=== PATIENT | male | born 1930 | race Caucasian/White ===

== ENCOUNTER 2019-06-14 15:13 | Inpatient (IN) | payer MEDICARE, OTHER ==
--- NOTE | 2019-06-14 15:28 | ER Document Report ---
ED Medical Screen (RME) - General Chief Complaint: Shortness Of Breath Stated Complaint: SHORTNESS OF BREATH Time Seen by Provider: 06/14/19 15:24 Primary Care Provider: DEX PACK MD [Primary Care Provider] - Follow up as needed Mode of Arrival: Ambulatory Information source: Patient Notes: 89-year-old male presented to ED for complaint of shortness of breath. He does have a history of CHF and is been hospitalized multiple times for this. He is also been hospitalized for pneumonia. His home health nurse spoke with patient and the family and we suggested he come to the emergency room to be evaluated due to his cough and shortness of breath. I have greeted and performed a rapid initial assessment of this patient. A comprehensive ED assessment and evaluation of the patient, analysis of test results and completion of medical decision making process will be conducted by an additional ED providers. - Related Data Allergies/Adverse Reactions: aspirin [Aspirin] Allergy (Verified 06/14/19 15:19) Penicillins Allergy (Verified 06/14/19 15:19) Past Medical History - Past Medical History Cardiac Medical History: Reports: Hx Atrial Fibrillation, Hx Congestive Heart Failure, Hx Heart Attack, Hx Hypercholesterolemia, Hx Hypertension Pulmonary Medical History: Reports: Hx COPD Endocrine Medical History: Reports: Hx Diabetes Mellitus Type 2 Past Surgical History: Reports: Hx Cardiac Catheterization, Hx Cardiac Surgery - bypass Physical Exam - Vital signs Vitals: Temp Pulse Resp BP Pulse Ox 97.5 F 65 24 H 114/55 L 98 06/14/19 15:18 06/14/19 15:18 06/14/19 15:18 06/14/19 15:18 06/14/19 15:18 Course - Vital Signs Vital signs: Temp Pulse Resp BP Pulse Ox 97.5 F 65 24 H 114/55 L 98 06/14/19 15:18 06/14/19 15:18 06/14/19 15:18 06/14/19 15:18 06/14/19 15:18 Doctor's Discharge - Discharge Referrals: DEX PACK MD [Primary Care Provider] - Follow up as needed
--- NOTE | 2019-06-14 15:56 | RADIOLOGY REPORT (SQ) ---
EXAM DESCRIPTION: CHEST 2 VIEWS COMPLETED DATE/TIME: 06/14/2019 3:45 pm REASON FOR STUDY: Short of breath cough history of CHF COMPARISON: None. EXAM PARAMETERS: NUMBER OF VIEWS: two views TECHNIQUE: Digital Frontal and Lateral radiographic views of the chest acquired. RADIATION DOSE: NA LIMITATIONS: none FINDINGS: LUNGS AND PLEURA: Mild right-sided pleural effusion with associated consolidation, possibl y atelectasis or infection. Unremarkable left hemithorax. No pneumothorax. MEDIASTINUM AND HILAR STRUCTURES: Right infrahilar opacification. HEART AND VASCULAR STRUCTURES: Enlarged cardiac silhouette. No definite pulmonary edema. BONES: Prior sternotomy. HARDWARE: Left-sided cardiac pacer with leads overlying right atrium and right ventricle. Sternotomy wires. OTHER: No other significant finding. IMPRESSION: Mild left basilar effusion with associated consolidation, possibly atelectasis or infect ion. Enlarged cardiac silhouette without overt edema. TECHNICAL DOCUMENTATION: JOB ID: [id number] 2010 [employer]- All Rights Reserved Reading location - IP/workstation name: [email or web address]
[2019-06-14 16:04] LABS: ABSOLUTE EOSINOPHILS # (AUTO) 0.1 10^3/uL (0.0-0.6); ABSOLUTE LYMPHOCYTES (AUTO) 0.6 10^3/uL (0.5-4.7); ABSOLUTE NEUT (AUTO) 3.5 10^3/uL (1.7-8.2); BASOPHILS % (AUTO) 0.8 % (0-2); EOSINOPHILS % (AUTO) 1.5 % (0-6); HEMATOCRIT 31.8 % (37.9-51.0); HEMOGLOBIN 10.6 g/dL (13.5-17.0); MEAN CORPUSCULAR HEMOGLOBIN 28.9 pg (27.0-33.4); MEAN CORPUSCULAR HGB CONC 33.3 g/dL (32.0-36.0); MEAN CORPUSCULAR VOLUME 87 fl (80-97); MONOCYTES % (AUTO) 19.8 % (3-13); PLATELET COUNT 127 10^3/uL (150-450); RED BLOOD COUNT 3.67 10^6/uL (4.35-5.55); RED CELL DISTRIBUTION WIDTH 18.6 % (11.5-14.0); SEGMENTED NEUTROPHILS % (AUTO) 66.9 % (42-78); TOTAL CELLS COUNTED % (AUTO) 100 %; WHITE BLOOD COUNT 5.2 10^3/uL (4.0-10.5)
[2019-06-14 16:28] LABS: ALBUMIN 3.7 g/dL (3.5-5.0); ALKALINE PHOSPHATASE 151 U/L (38-126); ANION GAP 11 (5-19); ASPARTATE AMINO TRANSFERASE 47 U/L (17-59); BILIRUBIN,DIRECT 0.3 mg/dL (0.0-0.4); BILIRUBIN,TOTAL 0.9 mg/dL (0.2-1.3); BLOOD UREA NITROGEN 40 mg/dL (7-20); CARBON DIOXIDE 29 mmol/L (22-30); CHLORIDE 91 mmol/L (98-107); GLUCOSE 146 mg/dL (75-110); POTASSIUM 4.5 mmol/L (3.6-5.0); TOTAL PROTEIN 7.7 g/dL (6.3-8.2)
[2019-06-14 16:50] LABS: TROPONIN I 0.09 ng/mL
[2019-06-14 16:52] LABS: AMORPHOUS SEDIMENT,URINE TRACE /HPF; APPEARANCE,URINE CLEAR; BILIRUBIN,URINE NEGATIVE (NEGATIVE); COLOR,URINE YELLOW; GLUCOSE, URINE NEGATIVE (NEGATIVE); KETONES,URINE NEGATIVE (NEGATIVE); PROTEIN,URINE NEGATIVE (NEGATIVE); URINE SPECIFIC GRAVITY 1.009; UROBILINOGEN,URINE NEGATIVE mg/dL (<2.0)
--- NOTE | 2019-06-14 18:25 | ER Document Report ---
ED General - General Chief Complaint: Shortness Of Breath Stated Complaint: SHORTNESS OF BREATH Time Seen by Provider: 06/14/19 15:24 Primary Care Provider: DEX PACK MD [Primary Care Provider] - Follow up as needed Mode of Arrival: Ambulatory Information source: Patient Notes: triage notes Pt sent over by home health nurse who states that pt's "lungs are full of fluid". Hx of CHF with 3 hospitalizations this past year. Pt has developed a cough and slight SOB over the last day. Denies fevers and other sx. Pt does have chronic marques in place. TRAVEL OUTSIDE OF THE [place] IN LAST 30 DAYS: No - HPI Onset: This evening Onset/Duration: Sudden Quality of pain: No pain Severity: Mild Associated symptoms: Nonproductive cough, Shortness of breath - Nonproductive cough Exacerbated by: Other - Urination and suprapubic pain acute over the last few hours Relieved by: Denies Similar symptoms previously: Yes Recently seen / treated by doctor: Yes - PMD was called but they advised to come immediately to the hospital - Related Data Allergies/Adverse Reactions: aspirin [Aspirin] Allergy (Verified 06/14/19 15:19) Penicillins Allergy (Verified 06/14/19 15:19) Past Medical History - General Information source: Patient - Social History Smoking Status: Never Smoker Cigarette use (# per day): No Chew tobacco use (# tins/day): No Smoking Education Provided: No Frequency of alcohol use: None Drug Abuse: None Family History: Reviewed & Not Pertinent Patient has suicidal ideation: No Patient has homicidal ideation: No - Past Medical History Cardiac Medical History: Reports: Hx Atrial Fibrillation, Hx Congestive Heart Failure, Hx Heart Attack, Hx Hypercholesterolemia, Hx Hypertension Pulmonary Medical History: Reports: Hx COPD Endocrine Medical History: Reports: Hx Diabetes Mellitus Type 2 Past Surgical History: Reports: Hx Cardiac Catheterization, Hx Cardiac Surgery - bypass Review of Systems - Review of Systems Constitutional: See HPI, Malaise, Weakness EENT: No symptoms reported Cardiovascular: See HPI Respiratory: See HPI, Cough, Short of breath Gastrointestinal: See HPI, Abdominal pain - Suprapubic pain Genitourinary: See HPI, Dysuria - Marques catheter in place Male Genitourinary: No symptoms reported Musculoskeletal: No symptoms reported Skin: No symptoms reported Hematologic/Lymphatic: No symptoms reported Neurological/Psychological: No symptoms reported Physical Exam - Vital signs Vitals: Temp Pulse Resp BP Pulse Ox 97.5 F 65 24 H 114/55 L 98 06/14/19 15:18 06/14/19 15:18 06/14/19 15:18 06/14/19 15:18 06/14/19 15:18 Interpretation: Tachypneic - General General appearance: Alert In distress: None - HEENT Head: Normocephalic Eyes: Normal Conjunctiva: Normal Cornea: Normal, Superficial foreign body Eyelashes: Normal Pupils: PERRL Mouth/Lips: Normal Mucous membranes: Normal Pharynx: Normal Neck: Normal - Respiratory Respiratory status: No respiratory distress, Tachypnea - Patient with full sentences and reports he has to have a bowel movement Chest status: Nontender Breath sounds: Decreased air movement, Nonproductive cough Chest palpation: Normal - Cardiovascular Rhythm: Regular Heart sounds: Normal auscultation Murmur: No Friction rub: No Lynette's crunch: No - Abdominal Inspection: Normal Distension: No distension Bowel sounds: Normal Tenderness: Tender - Suprapubic Organomegaly: No organomegaly - Back Back: Normal - Extremities General upper extremity: Normal inspection General lower extremity: Normal inspection - Neurological Neuro grossly intact: Yes Cognition: Normal Orientation: AAOx4 [place] Coma Scale Eye Opening: Spontaneous [place] Coma Scale Verbal: Oriented [place] Coma Scale Motor: Obeys Commands [place] Coma Scale Total: 15 Speech: Normal Cranial nerves: Normal Cerebellar coordination: Normal Motor strength normal: LUE, RUE, LLE, RLE - Psychological Associated symptoms: Normal affect - Skin Skin Temperature: Warm Skin Moisture: Dry Course - Vital Signs Vital signs: Temp Pulse Resp BP Pulse Ox 97.5 F 65 20 105/55 L 96 06/14/19 15:18 06/14/19 15:18 06/14/19 21:00 06/14/19 20:03 06/14/19 21:00 - Laboratory Result Diagrams: 06/14/19 13:45 06/14/19 13:45 Laboratory results interpreted by me: 06/14/19 06/14/19 06/14/19 13:45 13:45 13:45 RBC 3.67 L Hgb 10.6 L Hct 31.8 L RDW 18.6 H Plt Count 127 L Lymph % (Auto) 11.0 L [place] % (Auto) 19.8 H Sodium 131.2 L Chloride 91 L BUN 40 H Glucose 146 H Alkaline Phosphatase 151 H NT-Pro-B Natriuret Pep 691 H Urine Blood Urine Nitrite (Reflex) Leukocyte Esterase Rfl 06/14/19 16:25 RBC Hgb Hct RDW Plt Count Lymph % (Auto) [place] % (Auto) Sodium Chloride BUN Glucose Alkaline Phosphatase NT-Pro-B Natriuret Pep Urine Blood MODERATE H Urine Nitrite (Reflex) POSITIVE H Leukocyte Esterase Rfl LARGE H - Diagnostic Test Radiology reviewed: Reports reviewed Critical Care Note - Critical Care Note Total time excluding time spent on procedures (mins): 90 Comments: I discussed this case with IVÁN Duncan at 1835 and he advises discussing this with Dr. Buddy Izquierdo at around 1910. Dr. Izquierdo advised antibiotics. Patient's respiratory rate went up to 33 breaths/min with 109/62 blood pressure drop. I re-discussed this case with Dr. Buddy Izquierdo at 2121 and he advised telemetry bed Discharge - Discharge Clinical Impression: Pneumonia Qualifiers: Pneumonia type: due to unspecified organism Laterality: left Lung location: lower lobe of lung Qualified Code(s): J18.9 - Pneumonia, unspecified organism UTI (urinary tract infection) Qualifiers: Urinary tract infection type: catheter-associated UTI Indwelling urinary catheter type: indwelling urethral catheter Encounter type: initial encounter Qualified Code(s): T83.511A - Infection and inflammatory reaction due to indwelling urethral catheter, initial encounter Condition: Good Disposition: ADMITTED INPATIENT Admitting Provider: Timbo (Hospitalist) Unit Admitted: Telemetry Additional Instructions: Transfer patient to telemetry bed as per Dr. Izquierdo's orders Referrals: DEX PCAK MD [Primary Care Provider] - Follow up as needed
[2019-06-14] MEDS ORDERED: VANCOMYCIN HCL INJ 1000 MG VIAL IV ONE (18:27)
[2019-06-14] MEDS ORDERED: LEVOFLOXACIN 750 MG/D5W RTU 750 MG/150 ML RTUPB IV ONE (19:30)
[2019-06-14] MEDS ORDERED: IPRATROPIUM/ALBUTEROL 0.5-2.5 MG/3 ML AMPUL NEB PRN (21:21)
[2019-06-14] MEDS ORDERED: ACETAMINOPHEN 325 MG TABLET PO PRN (21:21)
--- NOTE | 2019-06-14 21:26 | RADIOLOGY REPORT (SQ) ---
EXAM DESCRIPTION: CLINICAL HISTORY: 89 years, Male, sob COMPARISON: Chest x-ray from today. TECHNIQUE: Axial images through the chest were performed after the administration of intravenous contrast using a pulmonary embolus protocol. MIPS were performed. This exam was performed according to our departmental dose-optimization program which includes use of Automated Exposure Control, adjustment of the mA and/or kV according to patient size and/or use of iterative reconstruction technique. 100 mL Omnipaque 350. FINDINGS: Mildly enlarged 32 mm main pulmonary artery. No evidence for pulmonary embolus. Mildly ectatic aortic sinus 35 mm. Ascending aorta 32 mm. No dissection. [id number] calcifications and aortic annulus. Advanced coronary calcifications. Calcification of aortic annulus. Mild cardiomegaly mainly large of right and left atria. Mild precarinal and subcarinal adenopathy. Moderate to prominent right pleural effusion. Compressive atelectasis mainly of the right lower lobe. Tiny left pleural effusion. Mild vascular congestion. Limited images of the upper abdomen demonstrate dilated IVC and hepatic veins. Possible passive congestion the liver. Multiple small gallstones. Atherosclerotic aorta and its branches. Increased colonic stool. IMPRESSION: 1. No evidence for pulmonary embolus. Mildly enlarged 32 mm main pulmonary artery. 2. Calcifications aortic and mitral annulus. Cardiomegaly mainly right and left atria. 3. Significant right pleural effusion. May be related to cardiac or to liver disease. Other causes not excluded. Associated with collapse of the right lower lobe. Minimal left pleural effusion. Nonspecific mild edema in the aerated lungs. 4. IVC and hepatic vein dilatation. Fatty liver. Possible passive congestion of the liver. 5. Atherosclerotic disease includes coronary arteries abdominal aorta and its branches. 6. Gallstones without acute biliary abnormality.
[2019-06-14] MEDS ORDERED: NORMAL SALINE 1000 ML 1,000 ML IV SCH (21:30)
[2019-06-14] MEDS: HEPARIN SOD (PORCINE) 5,000 UNIT/ML 1 ML VIAL SUBCUT SCH (22:25)
[2019-06-14 22:28] LABS: ABSOLUTE RETICS # 0.062 10^6/uL (0.028-0.122); RETICULOCYTE COUNT (AUTO) 1.69 % (0.66-2.85)
[2019-06-14 23:54] LABS: FOLATE > 20.00 ng/mL (>2.76)
[2019-06-14 23:56] LABS: IRON(TIBC) 58.1 ug/dL (49-181)
[2019-06-15] MEDS: IPRATROPIUM/ALBUTEROL 0.5-2.5 MG/3 ML AMPUL NEB SCH ×4 (00:26→23:49)
[2019-06-15] MEDS: NORMAL SALINE 1000 ML 1,000 ML IV PRN ×3 (03:32→21:50)
--- NOTE | 2019-06-15 03:37 | PDOC H&P ---
History of Present Illness Admission Date/PCP: 06/14/19 21:50 DEX PACK MD Patient complains of: Shortness of breath and cough History of Present Illness: EMMA HIGGINBOTHAM is a 89 year old male with a past medical history of congestive heart failure with an ejection fraction, paroxysmal atrial fibrillation, COPD, type 2 diabetes, status post coronary artery bypass graft and chronic indwelling [place] catheter. He presents with 7 days of rhinorrhea, nonproductive cough developing shortness of breath prompting evaluation in the emergency room. He is found to have a left-sided infiltrate with atelectasis. He receives breathing treatments, empiric antibiotics and referred to the hospitalist for admission. Patient denies recent antibiotics or hospitalization. No recent travel or exposure to known patient with coronavirus. Past Medical History Cardiac Medical History: Reports: Atrial Fibrillation, Congestive Heart Failure, Myocardial Infarction, Hyperlipidema, Hypertension Pulmonary Medical History: Reports: Chronic Obstructive Pulmonary Disease (COPD) Endocrine Medical History: Reports: Diabetes Mellitus Type 2 Psychiatric Medical History: Denies: Substance Abuse, Tobacco Dependency Past Surgical History Past Surgical History: Reports: Cardiac Catheterization Social History Information Source: Patient, Relative, [facility] Records Lives with: Family Smoking Status: Never Smoker Electronic Cigarette use?: No Frequency of Alcohol Use: None Drugs: None - Advance Directive Resuscitation Status: Full Code Family History Family History: Hypertension Parental Family History Reviewed: Yes Children Family History Reviewed: Yes Sibling(s) Family History Reviewed.: Yes Medication/Allergy Home Medications: Alfuzosin HCl [Uroxatral SR 10 mg Tablet] 10 mg PO DAILY 12/24/12 Furosemide [Lasix 40 mg Tablet] 80 mg PO DAILY 12/24/12 Metolazone [Zaroxolyn 2.5 Mg Tablet] 2.5 mg PO [id number] 12/24/12 Simvastatin [Zocor 10 mg Tablet] 10 mg PO DAILY 12/24/12 Cyanocobalamin (Vitamin B-12) [Vitamin B-12] 1,000 mcg SL DAILY 06/14/19 Folic Acid [Folvite 1 mg Tablet] 1 mg PO DAILY 06/14/19 Spironolactone [Aldactone 25 mg Tablet] 25 mg PO DAILY 06/14/19 Spironolactone [Aldactone 25 mg Tablet] 50 mg PO QHS 06/14/19 Allergies/Adverse Reactions: aspirin [Aspirin] Allergy (Verified 06/14/19 15:19) Penicillins Allergy (Verified 06/14/19 15:19) Review of Systems Constitutional: PRESENT: as per HPI, fatigue, weakness. ABSENT: chills, fever(s), headache(s), weight gain, weight loss Eyes: ABSENT: visual disturbances Ears: ABSENT: hearing changes Nose, Mouth, and Throat: PRESENT: as per HPI, other - Rhinorrhea Cardiovascular: PRESENT: as per HPI, dyspnea on exertion. ABSENT: chest pain, edema, orthropnea, palpitations Respiratory: PRESENT: as per HPI, cough, dyspnea. ABSENT: hemoptysis, sputum Gastrointestinal: ABSENT: abdominal pain, constipation, diarrhea, hematemesis, hematochezia, nausea, vomiting Genitourinary: ABSENT: dysuria, hematuria Musculoskeletal: ABSENT: joint swelling Integumentary: ABSENT: rash, wounds Neurological: ABSENT: abnormal gait, abnormal speech, confusion, dizziness, focal weakness, syncope Psychiatric: ABSENT: anxiety, depression, homidical ideation, suicidal ideation Endocrine: ABSENT: cold intolerance, heat intolerance, polydipsia, polyuria Hematologic/Lymphatic: ABSENT: easy bleeding, easy bruising Physical Exam Vital Signs: Temp Pulse Resp BP Pulse Ox 98 F 65 23 H 132/57 H 96 06/14/19 21:25 06/15/19 00:26 06/15/19 00:44 06/15/19 00:46 06/15/19 00:44 Intake & Output 06/13/19 06/14/19 06/15/19 11:59 11:59 11:59 Intake Total 150 Output Total 600 Balance -450 Weight 86.9 kg General appearance: PRESENT: cooperative, mild distress, well-developed, well- nourished. ABSENT: disheveled Head exam: PRESENT: atraumatic, normocephalic Eye exam: PRESENT: conjunctiva pink, EOMI, PERRLA. ABSENT: scleral icterus Ear exam: PRESENT: normal external ear exam Mouth exam: PRESENT: moist, tongue midline Neck exam: ABSENT: carotid bruit, JVD, lymphadenopathy, thyromegaly Respiratory exam: PRESENT: accessory muscle use, decreased breath sounds, prolonged expiratory phas, retraction, rhonchi, tachypnea Cardiovascular exam: PRESENT: RRR. ABSENT: diastolic murmur, rubs, systolic murmur Pulses: PRESENT: normal carotid pulses Vascular exam: PRESENT: normal capillary refill GI/Abdominal exam: PRESENT: normal bowel sounds, soft. ABSENT: distended, guarding, mass, organolmegaly, rebound, tenderness Rectal exam: PRESENT: deferred Extremities exam: PRESENT: full ROM. ABSENT: calf tenderness, clubbing, pedal edema Neurological exam: PRESENT: alert, awake, oriented to person, oriented to place, oriented to time, oriented to situation, CN II-XII grossly intact. ABSENT: motor sensory deficit Psychiatric exam: PRESENT: appropriate affect, normal mood. ABSENT: homicidal ideation, suicidal ideation Skin exam: PRESENT: dry, intact, warm. ABSENT: cyanosis, rash Results Laboratory Results: 06/14/19 13:45 06/14/19 13:45 06/14/19 06/14/19 06/14/19 13:45 13:45 13:45 WBC 5.2 RBC 3.67 L Hgb 10.6 L Hct 31.8 L MCV 87 MCH 28.9 MCHC 33.3 RDW 18.6 H Plt Count 127 L Seg Neutrophils % 66.9 Retic Count (auto) 1.69 Sodium 131.2 L Potassium 4.5 Chloride 91 L Carbon Dioxide 29 Anion Gap 11 BUN 40 H Creatinine 0.91 Est GFR ( Amer) > 60 Glucose 146 H Lactic Acid Calcium 9.0 Iron TIBC % Saturation Ferritin Total Bilirubin 0.9 AST 47 Alkaline Phosphatase 151 H Total Protein 7.7 Albumin 3.7 Vitamin B12 Folate Urine Color Urine Appearance Urine pH Ur Specific Kuna Urine Protein Urine Glucose (UA) Urine Ketones Urine Blood Urine RBC (Auto) 06/14/19 06/14/19 06/14/19 13:45 16:25 22:54 WBC RBC Hgb Hct MCV MCH MCHC RDW Plt Count Seg Neutrophils % Retic Count (auto) Sodium Potassium Chloride Carbon Dioxide Anion Gap BUN Creatinine Est GFR ( Amer) Glucose Lactic Acid 1.1 Calcium Iron 58.1 TIBC 420 % Saturation 14 Ferritin 64.80 Total Bilirubin AST Alkaline Phosphatase Total Protein Albumin Vitamin B12 798.0 Folate > 20.00 Urine Color YELLOW Urine Appearance CLEAR Urine pH 7.0 Ur Specific Kuna 1.009 Urine Protein NEGATIVE Urine Glucose (UA) NEGATIVE Urine Ketones NEGATIVE Urine Blood MODERATE H Urine RBC (Auto) 8 06/14/19 13:45 Troponin I 0.090 NT-Pro-B Natriuret Pep 691 H Impressions: Chest X-Ray 06/14/19 15:28 IMPRESSION: Mild left basilar effusion with associated consolidation, possibly atelectasis or infection. Enlarged cardiac silhouette without overt edema. Chest/Abdomen CTA 06/14/19 19:39 IMPRESSION: 1. No evidence for pulmonary embolus. Mildly enlarged 32 mm main pulmonary artery. 2. Calcifications aortic and mitral annulus. Cardiomegaly mainly right and left atria. 3. Significant right pleural effusion. May be related to cardiac or to liver disease. Other causes not excluded. Associated with collapse of the right lower lobe. Minimal left pleural effusion. Nonspecific mild edema in the aerated lungs. 4. IVC and hepatic vein dilatation. Fatty liver. Possible passive congestion of the liver. 5. Atherosclerotic disease includes coronary arteries abdominal aorta and its branches. 6. Gallstones without acute biliary abnormality. Assessment and Plan - Diagnosis (1) COPD exacerbation Is this a current diagnosis for this admission?: Yes Plan: Secondary to #1 albuterol, Atrovent, incentive spirometry, flutter valve and supplemental oxygen. (2) Thrombocytopenia Is this a current diagnosis for this admission?: Yes Plan: Unclear chronicity, follow-up CBC (3) Anemia Is this a current diagnosis for this admission?: Yes Plan: Unclear cause, follow-up anemia labs (4) Diabetes Is this a current diagnosis for this admission?: Yes Plan: Follow-up outpatient medication reconciliation, Humalog sliding scale ordered (5) Pneumonia Qualifiers: Pneumonia type: due to unspecified organism Laterality: left Lung location: lower lobe of lung Qualified Code(s): J18.9 - Pneumonia, unspecified organism Is this a current diagnosis for this admission?: Yes Plan: Likely secondary to sinusitis, Flonase, empiric antibiotic, follow-up blood culture and CBC (6) UTI (urinary tract infection) Qualifiers: Urinary tract infection type: catheter-associated UTI Indwelling urinary catheter type: indwelling urethral catheter Encounter type: initial encounter Qualified Code(s): T83.511A - Infection and inflammatory reaction due to indwelling urethral catheter, initial encounter; N39.0 - Urinary tract infection, site not specified Is this a current diagnosis for this admission?: Yes Plan: Possible contaminant from indwelling [place], empiric antibiotics initiated, follow-up urine and blood culture (7) Sinusitis Qualifiers: Sinusitis location: frontal Chronicity: subacute Qualified Code(s): J01.10 - Acute frontal sinusitis, unspecified Is this a current diagnosis for this admission?: Yes Plan: Flonase, empiric antibiotics initiated. - Time Time Spent with patient: 25-34 minutes - Inpatient Certification Medical Necessity: Need Close Monitoring Due to Risk of Patient Decompensation
[2019-06-15] MEDS: HEPARIN SOD (PORCINE) 5,000 UNIT/ML 1 ML VIAL SUBCUT SCH ×2 (05:43→14:05)
[2019-06-15 06:35] LABS: HEMATOCRIT 31.8 % (37.9-51.0); MEAN CORPUSCULAR HEMOGLOBIN 30.5 pg (27.0-33.4); MEAN CORPUSCULAR HGB CONC 34.5 g/dL (32.0-36.0); MEAN CORPUSCULAR VOLUME 88 fl (80-97); PLATELET COUNT 101 10^3/uL (150-450); RED CELL DISTRIBUTION WIDTH 18.3 % (11.5-14.0); WHITE BLOOD COUNT 6.2 10^3/uL (4.0-10.5)
[2019-06-15 06:37] LABS: ANION GAP 15 (5-19); BLOOD UREA NITROGEN 36 mg/dL (7-20); CALCIUM 9.3 mg/dL (8.4-10.2); CARBON DIOXIDE 24 mmol/L (22-30); CHLORIDE 93 mmol/L (98-107); GLUCOSE 140 mg/dL (75-110); POTASSIUM 4.2 mmol/L (3.6-5.0)
[2019-06-15 07:09] LABS: ABSOLUTE LYMPHOCYTES# (MANUAL) 0.3 10^3/uL (0.5-4.7); ABSOLUTE MONOCYTES # (MANUAL) 1.1 10^3/uL (0.1-1.4); BAND NEUTROPHILS % (MANUAL) 2 % (3-5); BASOPHILS % (MANUAL) 0 % (0-2); EOSINOPHILS % (MANUAL) 0 % (0-6); LYMPHOCYTES % (MANUAL) 5 % (13-45); MONOCYTES % (MANUAL) 17 % (3-13); SEGMENTED NEUTROPHILS % (MAN) 76 % (42-78); TOTAL CELLS COUNTED 100
[2019-06-15 07:11] LABS: ANISOCYTOSIS 1+; OVALOCYTES SLIGHT; PLATELET COMMENT DECREASED; POLYCHROMASIA SLIGHT; TEAR DROP CELLS SLIGHT; TOXIC GRANULATION SLIGHT; TOXIC VACUOLATION PRESENT
[2019-06-15] MEDS ORDERED: BISACODYL 10 MG SUPP.RECT PR PRN (14:49)
[2019-06-15] MEDS ORDERED: MAGNESIUM HYDROXIDE SUSP 30 ML UDCUP PO PRN (14:49)
[2019-06-15] MEDS ORDERED: GUAIFENESIN SYRP 200 MG/10 ML UDC PO PRN (16:56)
[2019-06-15] MEDS ORDERED: DEXTROSE 50%-WATER 25 GM/50 ML DISP.SYRIN IV PRN ×2 (16:57)
[2019-06-15] MEDS ORDERED: GLUCAGON,HUMAN RECOMB 1 MG INJ IM PRN (16:57)
[2019-06-15] MEDS ORDERED: DEXTROSE 40% GEL 15 GM TUBE PO PRN ×2 (16:57)
--- NOTE | 2019-06-15 17:03 | PDOC PROGRESS REPORT ---
Subjective Progress Note for:: 06/15/19 Subjective:: EMMA HIGGINBOTHAM is a 89 year old male with a past medical history of congestive heart failure with an ejection fraction, paroxysmal atrial fibrillation, COPD, type 2 diabetes, status post coronary artery bypass graft and chronic indwelling Castle catheter admitted 06/14/2019 with COPD exacerbation, left lower lobe pneumonia, and urinary tract infection Patient was seen on morning rounds. He was found resting in bed, comfortably, on room air. He reports generalized fatigue and unwellness but is unable to specify further. He does feel that he is slightly improved as compared to last night when he presented to the emergency department. He denies fever, chills, chest pain, palpitations, abdominal pain, nausea vomiting and diarrhea. He does report continued shortness of breath increased from his baseline. He has no questions or concerns at this time. No concerns per nursing. Reason For Visit: PNEUMONIA Physical Exam Vital Signs: Temp Pulse Resp BP Pulse Ox 98.9 F 65 18 116/46 L 92 06/15/19 08:00 06/15/19 14:00 06/15/19 08:52 06/15/19 08:00 06/15/19 08:52 Intake & Output 06/14/19 06/15/19 06/16/19 06:59 06:59 06:59 Intake Total 500 1000 Output Total 800 Balance -300 1000 Weight 86.9 kg General appearance: PRESENT: no acute distress, cooperative, hard of hearing, well-developed, well-nourished Head exam: PRESENT: atraumatic, normocephalic Eye exam: PRESENT: conjunctiva pink, EOMI, PERRLA. ABSENT: scleral icterus Mouth exam: PRESENT: moist, tongue midline Respiratory exam: PRESENT: decreased breath sounds - Bibasilar, prolonged expiratory phas, rhonchi - Scant, symmetrical, unlabored. ABSENT: rales, retraction, wheezes Cardiovascular exam: PRESENT: RRR, +S1, +S2. ABSENT: diastolic murmur, rubs, systolic murmur Pulses: PRESENT: normal dorsalis pedis pul Vascular exam: PRESENT: normal capillary refill GI/Abdominal exam: PRESENT: normal bowel sounds, soft. ABSENT: distended, g uarding, mass, organolmegaly, rebound, tenderness Rectal exam: PRESENT: deferred Extremities exam: PRESENT: full ROM. ABSENT: calf tenderness, clubbing, pedal edema Neurological exam: PRESENT: alert, awake, oriented to person, oriented to place, oriented to situation, CN II-XII grossly intact, other - Fatigued and forgetful this morning. ABSENT: motor sensory deficit Psychiatric exam: PRESENT: appropriate affect, normal mood. ABSENT: homicidal ideation, suicidal ideation Skin exam: PRESENT: dry, intact, warm. ABSENT: cyanosis, rash Results Laboratory Results: 06/15/19 05:55 06/15/19 05:55 06/14/19 06/14/19 06/14/19 13:45 13:45 16:25 WBC RBC Hgb Hct MCV MCH MCHC RDW Plt Count Seg Neutrophils % Retic Count (auto) 1.69 Sodium Potassium Chloride Carbon Dioxide Anion Gap BUN Creatinine Est GFR ( Amer) Glucose Lactic Acid Calcium Iron 58.1 TIBC 420 % Saturation 14 Ferritin 64.80 Vitamin B12 798.0 Folate > 20.00 Urine Color YELLOW Urine Appearance CLEAR Urine pH 7.0 Ur Specific Combs 1.009 Urine Protein NEGATIVE Urine Glucose (UA) NEGATIVE Urine Ketones NEGATIVE Urine Blood MODERATE H Urine RBC (Auto) 8 06/14/19 06/15/19 06/15/19 22:54 05:55 05:55 WBC 6.2 RBC 3.60 L Hgb 11.0 L Hct 31.8 L MCV 88 MCH 30.5 MCHC 34.5 RDW 18.3 H Plt Count 101 L Seg Neutrophils % Not Reportable Retic Count (auto) Sodium 132.3 L Potassium 4.2 Chloride 93 L Carbon Dioxide 24 Anion Gap 15 BUN 36 H Creatinine 0.96 Est GFR ( Amer) > 60 Glucose 140 H Lactic Acid 1.1 Calcium 9.3 Iron TIBC % Saturation Ferritin Vitamin B12 Folate Urine Color Urine Appearance Urine pH Ur Specific Combs Urine Protein Urine Glucose (UA) Urine Ketones Urine Blood Urine RBC (Auto) 06/14/19 13:45 Troponin I 0.090 NT-Pro-B Natriuret Pep 691 H Impressions: Chest X-Ray 06/14/19 15:28 IMPRESSION: Mild left basilar effusion with associated consolidation, possibly atelectasis or infection. Enlarged cardiac silhouette without overt edema. Chest/Abdomen CTA 06/14/19 19:39 IMPRESSION: 1. No evidence for pulmonary embolus. Mildly enlarged 32 mm main pulmonary artery. 2. Calcifications aortic and mitral annulus. Cardiomegaly mainly right and left atria. 3. Significant right pleural effusion. May be related to cardiac or to liver disease. Other causes not excluded. Associated with collapse of the right lower lobe. Minimal left pleural effusion. Nonspecific mild edema in the aerated lungs. 4. IVC and hepatic vein dilatation. Fatty liver. Possible passive congestion of the liver. 5. Atherosclerotic disease includes coronary arteries abdominal aorta and its branches. 6. Gallstones without acute biliary abnormality. Assessment and Plan - Diagnosis (1) Pneumonia Qualifiers: Pneumonia type: due to unspecified organism Laterality: left Lung location: lower lobe of lung Qualified Code(s): J18.9 - Pneumonia, unspecified organism Is this a current diagnosis for this admission?: Yes Plan: Patient is admitted to the medical floor on continuous cardiac telemetry. He is empirically placed on IV Levaquin. Blood and sputum cultures are pending. He is supported with supplemental oxygen. Scheduled and as needed nebulizer treatments. Mucinex twice daily Robitussin as needed Encouraged pulmonary toilet. (2) COPD exacerbation Is this a current diagnosis for this admission?: Yes Plan: Secondary to #1 Will provide supplemental oxygen and BiPAP as needed to maintain saturations greater than 89%. Start on scheduled and as needed nebulizer treatments. Provide p.o. prednisone Mucinex twice daily. Robitussin as needed. Pulmonary toilet is encouraged with incentive spirometer, flutter valve, and early ambulation. (3) Anemia Qualifiers: Anemia type: unspecified type Qualified Code(s): D64.9 - Anemia, unspecified Is this a current diagnosis for this admission?: Yes Plan: Hgb 10.6-> 11.0 Anemia panel is unremarkable. No evidence of bleeding. Will start on multivitamin. Monitor CBCs. (4) Diabetes Qualifiers: Diabetes mellitus type: type 2 Is this a current diagnosis for this admission?: Yes Plan: Holding oral medications while admitted. We will check A1c with a.m. lab work. Patient is placed on a consistent carb diet. Accu-Cheks before meals and at bedtime with Humalog for sliding scale coverage. Hypoglycemia protocol in place. Registered dietitian office machinery or equipment installer consulted. (5) Sinusitis Qualifiers: Sinusitis location: frontal Chronicity: subacute Qualified Code(s): J01.10 - Acute frontal sinusitis, unspecified Is this a current diagnosis for this admission?: Yes Plan: Flonase, empiric antibiotics initiated. (6) Thrombocytopenia Is this a current diagnosis for this admission?: Yes Plan: Unclear chronicity, follow-up CBC Arixtra for DVT prophylaxis (7) UTI (urinary tract infection) Qualifiers: Urinary tract infection type: catheter-associated UTI Indwelling urinary catheter type: indwelling urethral catheter Encounter type: initial encounter Qualified Code(s): T83.511A - Infection and inflammatory reaction due to indwelling urethral catheter, initial encounter; N39.0 - Urinary tract infection, site not specified Is this a current diagnosis for this admission?: Yes Plan: Possible contaminant from indwelling Castle; will replace Castle Urine and blood cultures pending. Empiric antibiotics initiated\ - Time Time Spent with patient: 35 or more minutes Medications reviewed and adjusted accordingly: Yes Anticipated discharge: SNF Within: within 72 hours
[2019-06-15] MEDS: PREDNISONE 20 MG TABLET PO SCH (17:20)
[2019-06-15] MEDS ORDERED: LEVOFLOXACIN 750 MG/D5W RTU 750 MG/150 ML RTUPB IV SCH (18:00)
[2019-06-15] MEDS: INSULIN LISPRO 100 UNIT/ML 3 ML VIAL SUBCUT SCH (21:48)
[2019-06-15] MEDS: GUAIFENESIN 600 MG TABLET.SA PO SCH (21:50)
[2019-06-16 05:33] LABS: HEMATOCRIT 30.5 % (37.9-51.0); HEMOGLOBIN 10.4 g/dL (13.5-17.0); MEAN CORPUSCULAR HEMOGLOBIN 29.6 pg (27.0-33.4); MEAN CORPUSCULAR HGB CONC 34.1 g/dL (32.0-36.0); MEAN CORPUSCULAR VOLUME 87 fl (80-97); RED BLOOD COUNT 3.52 10^6/uL (4.35-5.55); RED CELL DISTRIBUTION WIDTH 18.3 % (11.5-14.0); WHITE BLOOD COUNT 4.6 10^3/uL (4.0-10.5)
[2019-06-16 05:49] LABS: ANION GAP 13 (5-19); BLOOD UREA NITROGEN 36 mg/dL (7-20); CALCIUM 8.9 mg/dL (8.4-10.2); CARBON DIOXIDE 24 mmol/L (22-30); CHLORIDE 96 mmol/L (98-107); GLUCOSE 150 mg/dL (75-110); POTASSIUM 4.2 mmol/L (3.6-5.0)
[2019-06-16 06:01] LABS: PLATELET COUNT 92 10^3/uL (150-450)
[2019-06-16] MEDS: CEFEPIME 1 GM/D5W RTU 1 GM/50 ML RTUPB IV SCH ×2 (09:27→21:06)
[2019-06-16] MEDS: PREDNISONE 20 MG TABLET PO SCH (09:27)
[2019-06-16] MEDS: MULTIVITAMIN TABLET PO SCH (09:27)
[2019-06-16] MEDS: GUAIFENESIN 600 MG TABLET.SA PO SCH ×2 (09:27→21:06)
[2019-06-16] MEDS: FLUTICASONE NASAL SPRAY 50 MCG/SPRY 120 SPRAY/16 GM NASL SCH (09:28)
[2019-06-16] MEDS: FONDAPARINUX SODIUM INJ 2.5 MG/0.5 ML DISP.SYRIN SUBCUT SCH (09:28)
[2019-06-16] MEDS: IPRATROPIUM/ALBUTEROL 0.5-2.5 MG/3 ML AMPUL NEB SCH ×3 (09:35→23:21)
[2019-06-16] MEDS: INSULIN LISPRO 100 UNIT/ML 3 ML VIAL SUBCUT SCH ×4 (11:19→22:19)
--- NOTE | 2019-06-16 22:38 | PDOC PROGRESS REPORT ---
Subjective Progress Note for:: 06/16/19 Subjective:: EMMA HIGGINBOTHAM is a 89 year old male with a past medical history of congestive heart failure with an ejection fraction, paroxysmal atrial fibrillation, COPD, type 2 diabetes, status post coronary artery bypass graft and chronic indwelling [place] catheter admitted 06/14/2019 with COPD exacerbation, left lower lobe pneumonia, and urinary tract infection Patient was seen on morning rounds with his present. He was found resting in bed, comfortably, on room air. He reports he is feeling well today. He has no specific complaints; hopeful to be able to return home soon. He denies fever, chills, chest pain, palpitations, abdominal pain, nausea vomiting and diarrhea. They have no questions or concerns at this time. No concerns per nursing. Reason For Visit: PNEUMONIA Physical Exam Vital Signs: Temp Pulse Resp BP Pulse Ox 97.6 F 65 16 132/61 H 92 06/16/19 19:21 06/16/19 19:21 06/16/19 19:21 06/16/19 19:21 06/16/19 19:21 Intake & Output 06/15/19 06/16/19 06/17/19 06:59 06:59 06:59 Intake Total 500 2400 290 Output Total 800 800 400 Balance -300 1600 -110 Weight 86.9 kg 87.9 kg General appearance: PRESENT: no acute distress, cooperative, hard of hearing, well-developed, well-nourished Head exam: PRESENT: atraumatic, normocephalic Eye exam: PRESENT: conjunctiva pink, EOMI, PERRLA. ABSENT: scleral icterus Ear exam: PRESENT: normal external ear exam Mouth exam: PRESENT: moist, tongue midline Respiratory exam: PRESENT: rhonchi, symmetrical, unlabored, other. ABSENT: rales, wheezes Cardiovascular exam: PRESENT: RRR. ABSENT: diastolic murmur, rubs, systolic murmur Pulses: PRESENT: normal dorsalis pedis pul Vascular exam: PRESENT: normal capillary refill GI/Abdominal exam: PRESENT: normal bowel sounds, soft. ABSENT: distended, guarding, mass, organolmegaly, rebound, tenderness Rectal exam: PRESENT: deferred Extremities exam: PRESENT: full ROM. ABSENT: calf tenderness, clubbing, pedal edema Neurological exam: PRESENT: alert, awake, oriented to person, oriented to place, oriented to time, oriented to situation, CN II-XII grossly intact, other - Forgetful and intermittent confusion; at baseline per staff. ABSENT: motor sensory deficit Psychiatric exam: PRESENT: appropriate affect, normal mood. ABSENT: homicidal ideation, suicidal ideation Skin exam: PRESENT: dry, intact, warm. ABSENT: cyanosis, rash Results Laboratory Results: 06/16/19 05:08 06/16/19 05:08 06/16/19 06/16/19 05:08 05:08 WBC 4.6 RBC 3.52 L Hgb 10.4 L Hct 30.5 L MCV 87 MCH 29.6 MCHC 34.1 RDW 18.3 H Plt Count 92 L Sodium 133.4 L Potassium 4.2 Chloride 96 L Carbon Dioxide 24 Anion Gap 13 BUN 36 H Creatinine 0.97 Est GFR ( Amer) > 60 Glucose 150 H Calcium 8.9 06/14/19 13:45 Troponin I 0.090 NT-Pro-B Natriuret Pep 691 H Impressions: Chest X-Ray 06/14/19 15:28 IMPRESSION: Mild left basilar effusion with associated consolidation, possibly atelectasis or infection. Enlarged cardiac silhouette without overt edema. Chest/Abdomen CTA 06/14/19 19:39 IMPRESSION: 1. No evidence for pulmonary embolus. Mildly enlarged 32 mm main pulmonary artery. 2. Calcifications aortic and mitral annulus. Cardiomegaly mainly right and left atria. 3. Significant right pleural effusion. May be related to cardiac or to liver disease. Other causes not excluded. Associated with collapse of the right lower lobe. Minimal left pleural effusion. Nonspecific mild edema in the aerated lungs. 4. IVC and hepatic vein dilatation. Fatty liver. Possible passive congestion of the liver. 5. Atherosclerotic disease includes coronary arteries abdominal aorta and its branches. 6. Gallstones without acute biliary abnormality. Assessment and Plan - Diagnosis (1) Pneumonia Qualifiers: Pneumonia type: due to unspecified organism Laterality: left Lung location: lower lobe of lung Qualified Code(s): J18.9 - Pneumonia, unspecified organism Is this a current diagnosis for this admission?: Yes Plan: Patient is admitted to the medical floor on continuous cardiac telemetry. Blood cultures are negative at 48 hours Sputum cultures are pending. Currently on Ancef for Pseudomonas UTI. He is supported with supplemental oxygen. Scheduled and as needed nebulizer treatments. Mucinex twice daily Robitussin as needed Encouraged pulmonary toilet. Lower suspicion for pneumonia secondary to bacterial cause; I do believe the patient's shortness of breath, and cough, are more likely to be related to his right pleural effusion. We will arrange for thoracentesis. Should symptoms worsen while on Ancef; will then broaden antibiotic therapy. (2) COPD exacerbation Is this a current diagnosis for this admission?: Yes Plan: Secondary to #1 Will provide supplemental oxygen and BiPAP as needed to maintain saturations greater than 89%. Continue scheduled and as needed nebulizer treatments. Provide p.o. prednisone Mucinex twice daily. Robitussin as needed. Pulmonary toilet is encouraged with incentive spirometer, flutter valve, and early ambulation. (3) Anemia Qualifiers: Anemia type: unspecified type Qualified Code(s): D64.9 - Anemia, unspecified Is this a current diagnosis for this admission?: Yes Plan: Hgb 10.6-> 11.0 Anemia panel is unremarkable. No evidence of bleeding. Will start on multivitamin. Monitor CBCs. (4) Diabetes Qualifiers: Diabetes mellitus type: type 2 Is this a current diagnosis for this admission?: Yes Plan: A1c 6.6%. Patient is placed on a consistent carb diet. Registered dietitian adaptive physical educator consulted. (5) Sinusitis Qualifiers: Sinusitis location: frontal Chronicity: subacute Qualified Code(s): J 01.10 - Acute frontal sinusitis, unspecified Is this a current diagnosis for this admission?: Yes Plan: Flonase, empiric antibiotics initiated. (6) Thrombocytopenia Is this a current diagnosis for this admission?: Yes Plan: Unclear chronicity, follow-up CBC Arixtra for DVT prophylaxis (7) UTI (urinary tract infection) Qualifiers: Urinary tract infection type: catheter-associated UTI Indwelling urinary catheter type: indwelling urethral catheter Encounter type: initial encounter Qualified Code(s): T83.511A - Infection and inflammatory reaction due to indwelling urethral catheter, initial encounter; N39.0 - Urinary tract infection, site not specified Is this a current diagnosis for this admission?: Yes Plan: Possible contaminant from indwelling Castle; have replaced Castle. Blood cultures negative at 48 hours. Urine culture shows Pseudomonas resistant to Levaquin. Have adjusted antibiotics to IV Ancef. (8) Pleural effusion Is this a current diagnosis for this admission?: Yes Plan: CTA noted significant right-sided pleural effusion with associated partial right lung collapse. Unclear etiology. No obvious pneumonia, proBNP is 600, LFTs were normal. We will ask for thoracentesis with cytology, cell count, and cultures. Consider further abdominal imaging to evaluate for hepatic congestion/cirrhosis and echocardiogram. - Time Time Spent with patient: 35 or more minutes Medications reviewed and adjusted accordingly: Yes Anticipated discharge: Home with Homehealth
[2019-06-17 06:29] LABS: HEMATOCRIT 31.7 % (37.9-51.0); HEMOGLOBIN 10.7 g/dL (13.5-17.0); MEAN CORPUSCULAR HEMOGLOBIN 29.5 pg (27.0-33.4); MEAN CORPUSCULAR HGB CONC 33.6 g/dL (32.0-36.0); MEAN CORPUSCULAR VOLUME 88 fl (80-97); PLATELET COUNT 106 10^3/uL (150-450); RED BLOOD COUNT 3.62 10^6/uL (4.35-5.55); RED CELL DISTRIBUTION WIDTH 18.5 % (11.5-14.0); WHITE BLOOD COUNT 7.5 10^3/uL (4.0-10.5)
[2019-06-17 06:35] LABS: INTERNATIONAL RATION (INR) 1.25; PROTHROMBIN TIME 15.8 SEC (11.4-15.4)
[2019-06-17 06:36] LABS: PARTIAL THROMBOPLASTIN TIME 42.2 SEC (23.5-35.8)
[2019-06-17 06:54] LABS: ANION GAP 13 (5-19); BLOOD UREA NITROGEN 47 mg/dL (7-20); CALCIUM 9.4 mg/dL (8.4-10.2); CARBON DIOXIDE 25 mmol/L (22-30); CHLORIDE 95 mmol/L (98-107); GLUCOSE 118 mg/dL (75-110); POTASSIUM 4.5 mmol/L (3.6-5.0)
[2019-06-17] MEDS: IPRATROPIUM/ALBUTEROL 0.5-2.5 MG/3 ML AMPUL NEB SCH ×2 (07:51→15:52)
[2019-06-17] MEDS: CEFEPIME 1 GM/D5W RTU 1 GM/50 ML RTUPB IV SCH ×2 (10:00→21:13)
[2019-06-17] MEDS: FLUTICASONE NASAL SPRAY 50 MCG/SPRY 120 SPRAY/16 GM NASL SCH (10:00)
[2019-06-17] MEDS: PREDNISONE 20 MG TABLET PO SCH (10:00)
[2019-06-17] MEDS: MULTIVITAMIN TABLET PO SCH (10:01)
[2019-06-17] MEDS: GUAIFENESIN 600 MG TABLET.SA PO SCH ×2 (10:01→21:12)
--- NOTE | 2019-06-17 11:19 | RADIOLOGY REPORT (SQ) ---
EXAM DESCRIPTION: CHEST SINGLE VIEW COMPLETED DATE/TIME: 06/17/2019 10:41 am REASON FOR STUDY: S/P RT THORA COMPARISON: 06/14/2019 NUMBER OF VIEWS: One view. TECHNIQUE: Single frontal radiographic image of the chest acquired. LIMITATIONS: None. FINDINGS: LUNGS AND PLEURA: Decrease in right pleural effusion. No pneumothorax. MEDIASTINUM AND HEART: Stable heart size and mediastinal structures. SUPPORT DEVICES: Appropriate location without change. BONY STRUCTURES: No acute findings. HARDWARE: CABG. OTHER: No other significant finding. IMPRESSION: No pneumothorax status post right thoracentesis. Reading location - IP/workstation name: [email or web address]
--- NOTE | 2019-06-17 11:48 | RADIOLOGY REPORT (SQ) ---
EXAM DESCRIPTION: U/S THORACENTESIS WITH IMAGING COMPLETED DATE/TIME: 06/17/2019 10:37 am REASON FOR STUDY: Rt pleural effusion COMPARISON: None. LIMITATIONS: None. PROCEDURE: Procedure, risks, benefit, and alternative explained to patient who then gave written con sent. The posterior right chest wall was marked using ultrasound guidance. A time-out was called fo r correct marking verification. Chest prepped and draped using sterile technique. Local anesthesia a chieved using 3.0 ml of 1% lidocaine injection. A 6fr Safe-T- Centesis set was introduced into the r ight pleural space. Fluid was aspirated. The catheter was removed and the entry site was covered wi th sterile bandage. No immediate complications noted. Images acquired during the procedure were stored on PACS. FINDINGS: ENTRY SITE: posterior right chest. FLUID VOLUME: 1000 cc FLUID ANALYSIS: Straw OTHER: Fluid sent to the lab for testing. IMPRESSION: SUCCESSFUL THORACENTESIS USING ULTRASOUND GUIDANCE. COMMENT: Patient medication list reviewed: Yes- Quality ID# [id number]:Eligible professional attests to doc umenting in the medical record they obtained, updated, or reviewed the patient's current medications. TECHNICAL DOCUMENTATION: JOB ID: [id number] 2010 [employer]- All Rights Reserved Reading location - IP/workstation name: [email or web address]
[2019-06-17 12:11] LABS: FLUID SOURCE LUNG
[2019-06-17 12:12] LABS: FLUID APPEARANCE CLEAR; FLUID COLOR YELLOW; FLUID TYPE PLEURAL; FLUID VISCOSITY LIQUID
--- NOTE | 2019-06-17 14:23 | RADIOLOGY REPORT (SQ) ---
EXAM DESCRIPTION: CHEST SINGLE VIEW COMPLETED DATE/TIME: 06/17/2019 12:41 pm REASON FOR STUDY: 2 HRS S/P RT THORA COMPARISON: Earlier same day. NUMBER OF VIEWS: One view. TECHNIQUE: Single frontal radiographic image of the chest acquired. LIMITATIONS: None. FINDINGS: LUNGS AND PLEURA: Stable appearance. No pneumothorax. MEDIASTINUM AND HEART: Stable heart size and mediastinal structures. SUPPORT DEVICES: Appropriate location without change. BONY STRUCTURES: No acute findings. HARDWARE: None. OTHER: No other significant finding. IMPRESSION: No pneumothorax. Reading location - IP/workstation name: [email or web address]
--- NOTE | 2019-06-17 15:16 | PDOC PROGRESS REPORT ---
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 He was found resting in bed, comfortably, on room air. He reports he is feeling well today. He has no specific complaints; hopeful to be able to return home soon. He denies fever, chills, chest pain, palpitations, abdominal pain, nausea vomiting and diarrhea. They have no questions or concerns at this time. No concerns per nursing. Reason For Visit: PNEUMONIA Physical Exam Vital Signs: Temp Pulse Resp BP Pulse Ox 98.0 F 71 18 109/47 L 98 06/17/19 11:06 06/17/19 14:00 06/17/19 11:06 06/17/19 11:06 06/17/19 11:06 Intake & Output 06/16/19 06/17/19 06/18/19 06:59 06:59 06:59 Intake Total 2400 780 476 Output Total 800 1300 Balance 1600 -520 476 Weight 87.9 kg 89.3 kg General appearance: PRESENT: no acute distress, cooperative, hard of hearing, well-developed, well-nourished Head exam: PRESENT: atraumatic, normocephalic Eye exam: PRESENT: conjunctiva pink, EOMI, PERRLA. ABSENT: scleral icterus Ear exam: PRESENT: normal external ear exam Mouth exam: PRESENT: moist, tongue midline Neck exam: ABSENT: carotid bruit, JVD, lymphadenopathy, thyromegaly Respiratory exam: PRESENT: decreased breath sounds - bibasilar, symmetrical, unlabored. ABSENT: rales, rhonchi, wheezes Cardiovascular exam: PRESENT: RRR. ABSENT: diastolic murmur, rubs, systolic murmur Pulses: PRESENT: normal dorsalis pedis pul Vascular exam: PRESENT: normal capillary refill GI/Abdominal exam: PRESENT: normal bowel sounds, soft. ABSENT: distended, guarding, mass, organolmegaly, rebound, tenderness Rectal exam: PRESENT: deferred Gentrourinary exam: PRESENT: indwelling catheter Extremities exam: PRESENT: full ROM. ABSENT: calf tenderness, clubbing, pedal edema Neurological exam: PRESENT: alert, awake, oriented to person, oriented to place, oriented to time, oriented to situation, CN II-XII grossly intact, other - Forgetful and intermittent confusion; at baseline per staff. ABSENT: motor sensory deficit Psychiatric exam: PRESENT: appropriate affect, normal mood. ABSENT: homicidal ideation, suicidal ideation Skin exam: PRESENT: dry, intact, warm. ABSENT: cyanosis, rash Results Laboratory Results: 06/17/19 05:50 06/17/19 05:50 06/17/19 06/17/19 06/17/19 05:50 05:50 10:10 WBC 7.5 RBC 3.62 L Hgb 10.7 L Hct 31.7 L MCV 88 MCH 29.5 MCHC 33.6 RDW 18.5 H Plt Count 106 L Sodium 132.6 L Potassium 4.5 Chloride 95 L Carbon Dioxide 25 Anion Gap 13 BUN 47 H Creatinine 1.07 Est GFR ( Amer) > 60 Glucose 118 H Calcium 9.4 Fluid Type PLEURAL Fluid Source LUNG Fluid Color YELLOW Fluid Appearance CLEAR Fluid Viscosity LIQUID Fluid WBC 304 Fluid RBC 347 06/14/19 16:26 Catheterized Urine Urine Culture - Final Pseudomonas Aeruginosa Enterococcus Faecalis(Group D) 06/14/19 13:45 Troponin I 0.090 NT-Pro-B Natriuret Pep 691 H Impressions: Chest/Abdomen CTA 06/14/19 19:39 IMPRESSION: 1. No evidence for pulmonary embolus. Mildly enlarged 32 mm main pulmonary artery. 2. Calcifications aortic and mitral annulus. Cardiomegaly mainly right and left atria. 3. Significant right pleural effusion. May be related to cardiac or to liver disease. Other causes not excluded. Associated with collapse of the right lower lobe. Minimal left pleural effusion. Nonspecific mild edema in the aerated lungs. 4. IVC and hepatic vein dilatation. Fatty liver. Possible passive congestion of the liver. 5. Atherosclerotic disease includes coronary arteries abdominal aorta and its branches. 6. Gallstones without acute biliary abnormality. Thoracentesis Ultrasound 06/17/19 00:00 IMPRESSION: SUCCESSFUL THORACENTESIS USING ULTRASOUND GUIDANCE. Chest X-Ray 06/17/19 12:20 IMPRESSION: No pneumothorax. Assessment and Plan - Diagnosis (1) Pneumonia Qualifiers: Pneumonia type: due to unspecified organism Laterality: left Lung location: lower lobe of lung Qualified Code(s): J18.9 - Pneumonia, unspecified organism Is this a current diagnosis for this admission?: Yes Plan: Patient is admitted to the medical floor on continuous cardiac telemetry. Blood cultures are negative at 48 hours Sputum cultures are pending; not yet obtained. Currently on Ancef for Pseudomonas UTI. He is supported with supplemental oxygen. Scheduled and as needed nebulizer treatments. Mucinex twice daily Robitussin as needed Encouraged pulmonary toilet. Lower suspicion for pneumonia secondary to bacterial cause; I do believe the patient's shortness of breath, and cough, are more likely to be related to his right pleural effusion. Now s/p thoracentesis; 1L removed Should symptoms worsen while on Ancef; will then broaden antibiotic therapy. (2) COPD exacerbation Is this a current diagnosis for this admission?: Yes Plan: Secondary to #1 Will provide supplemental oxygen and BiPAP as needed to maintain saturations greater than 89%. Continue scheduled and as needed nebulizer treatments. Provide p.o. prednisone Mucinex twice daily. Robitussin as needed. Pulmonary toilet is encouraged with incentive spirometer, flutter valve, and early ambulation. (3) Anemia Qualifiers: Anemia type: unspecified type Qualified Code(s): D64.9 - Anemia, unspecified Is this a current diagnosis for this admission?: Yes Plan: Hgb 10.6-> 11.0-> 10.4-> 10.7 Anemia panel is unremarkable. No evidence of bleeding. Continue on multivitamin. Monitor CBCs. (4) Diabetes Qualifiers: Diabetes mellitus type: type 2 Is this a current diagnosis for this admission?: Yes Plan: A1c 6.6%. Diet controlled. Patient is placed on a consistent carb diet. Registered dietitian prover consulted. (5) Sinusitis Qualifiers: Sinusitis location: frontal Chronicity: subacute Qualified Code(s): J01.10 - Acute frontal sinusitis, unspecified Is this a current diagnosis for this admission?: Yes Plan: Flonase, empiric antibiotics initiated. (6) Thrombocytopenia Is this a current diagnosis for this admission?: Yes Plan: Unclear chronicity, follow-up CBC Arixtra for DVT prophylaxis (7) UTI (urinary tract infection) Qualifiers: Urinary tract infection type: catheter-associated UTI Indwelling urinary catheter type: indwelling urethral catheter Encounter type: initial encounter Qualified Code(s): T83.511A - Infection and inflammatory reaction due to indwelling urethral catheter, initial encounter; N39.0 - Urinary tract infection, site not specified Is this a current diagnosis for this admission?: Yes Plan: Possible contaminant from indwelling Castle; have replaced Castle. Blood cultures negative at 48 hours. Urine culture shows Pseudomonas and Enterococcus Continue IV Ancef and PO Levaquin. (8) Pleural effusion Is this a current diagnosis for this admission?: Yes Plan: CTA noted significant right-sided pleural effusion with associated partial right lung collapse. Unclear etiology. No obvious pneumonia, proBNP is 600, LFTs were normal. Now s/p thoracentesis w/ 1L fluid removed. Pleural effusion cell counts suggest transudative. Start Furosemide 40 mg daily and Spironolactone 100 mg daily. RUQ U/S pending. - Time Time Spent with patient: 35 or more minutes Medications reviewed and adjusted accordingly: Yes Anticipated discharge: Home with Homehealth Within: within 48 hours
--- NOTE | 2019-06-17 16:30 | RADIOLOGY REPORT (SQ) ---
EXAM DESCRIPTION: U/S ABDOMEN LIMITED W/O DOP COMPLETED DATE/TIME: 06/17/2019 4:19 pm REASON FOR STUDY: pleural effusion, unknown cause COMPARISON: None. TECHNIQUE: Dynamic and static grayscale images acquired of the abdomen and recorded on PACS. Additio nal selected color Doppler and spectral images recorded. LIMITATIONS: Limited visualization. Poor acoustical window FINDINGS: PANCREAS: Not visualized. LIVER: 18.7 cm. Heterogeneous echotexture. No focal masses. LIVER VASCULATURE: To and fro pattern in the main portal vein. GALLBLADDER: Gallstones. Gallbladder wall thickening and pericholecystic fluid. ULTRASOUND-DETECTED COHEN'S SIGN: Negative. INTRAHEPATIC DUCTS AND COMMON DUCT: CBD and intrahepatic ducts normal caliber. No filling defects. INFERIOR VENA CAVA: Normal flow. AORTA: Obscured. RIGHT KIDNEY: Normal size. Normal echogenicity. No solid or suspicious masses. No hydronephros is. No calcifications. PERITONEAL AND RIGHT PLEURAL SPACE: No ascites or effusions. OTHER: No other significant findings. IMPRESSION: Technical limitations. Findings consistent with acute cholecystitis. Main portal vein flow pattern consistent with portal hypertension. TECHNICAL DOCUMENTATION: JOB ID: [id number] 2010 [employer]- All Rights Reserved Reading location - IP/workstation name: [email or web address]
[2019-06-17] MEDS: LEVOFLOXACIN 750 MG TABLET PO SCH (17:13)
[2019-06-18] MEDS: IPRATROPIUM/ALBUTEROL 0.5-2.5 MG/3 ML AMPUL NEB SCH ×3 (00:01→16:36)
[2019-06-18] MEDS: MULTIVITAMIN TABLET PO SCH (09:43)
[2019-06-18] MEDS: GUAIFENESIN 600 MG TABLET.SA PO SCH ×2 (09:43→21:16)
[2019-06-18] MEDS: CEFEPIME 1 GM/D5W RTU 1 GM/50 ML RTUPB IV SCH ×2 (09:43→21:16)
[2019-06-18] MEDS: LEVOFLOXACIN 750 MG TABLET PO SCH (09:43)
[2019-06-18] MEDS: FUROSEMIDE 40 MG TABLET PO SCH (09:43)
[2019-06-18] MEDS: FOLIC ACID 1 MG TABLET PO SCH (09:43)
[2019-06-18] MEDS: SPIRONOLACTONE 25 MG TABLET PO SCH (09:44)
[2019-06-18] MEDS: FLUTICASONE NASAL SPRAY 50 MCG/SPRY 120 SPRAY/16 GM NASL SCH (09:44)
[2019-06-18] MEDS: PREDNISONE 20 MG TABLET PO SCH (09:44)
--- NOTE | 2019-06-18 15:14 | RADIOLOGY REPORT (SQ) ---
EXAM DESCRIPTION: CT ABDOMEN IV CONTRAST ONLY COMPLETED DATE/TIME: 06/18/2019 2:54 pm REASON FOR STUDY: abn findings on US; eval for acute cholecystitis COMPARISON: 06/17/2019 TECHNIQUE: CT scan of the abdomen performed with intravenous and without oral contrast using helical scanning technique with dynamic intravenous contrast injection. Images reviewed with lung, soft tiss ue, and bone windows. Reconstructed coronal and sagittal MPR images reviewed. Delayed images for eval uation of the urinary system also acquired and evaluated. All images stored on PACS. All CT scanners at this facility use dose modulation, iterative reconstruc tion, and/or weight based dosing when appropriate to reduce radiation dose to as low as reasonably ac hievable (ALARA). [facility]: Dose Right [facility]: CareDose [facility]: Dose Right [facility]: Teradose 4D [facility]: [employer] CONTRAST TYPE AND DOSE: contrast/concentration: Isovue 350.00 mg/ml; Total Contrast Delivered: 69.0 ml; Total Saline Delivered: 53.0 ml RENAL FUNCTION: Creatinine 1.07 RADIATION DOSE: CT Rad equipment meets quality standard of care and radiation dose reduction techniq ues were employed. CTDIvol: 18.6 - 18.7 mGy. DLP: 1421 mGy-cm. . LIMITATIONS: Motion degraded exam. FINDINGS: LOWER CHEST: Small bilateral pleural effusions, right greater than left. Associated bibas ilar consolidation, likely atelectasis. Significant coronary atherosclerosis. Partially visualized cardiac pacer. Mitral annulus calcifications. Sternotomy changes. LIVER: Normal size. No masses. No dilated ducts. Mild perihepatic fluid. SPLEEN: Normal size. No focal lesions. PANCREAS: No masses. No significant calcifications. No adjacent inflammation or peripancreatic fluid collections. Pancreatic duct not dilated. GALLBLADDER: Dependent gallstones. Gallbladder is nondistended. No clear wall thickening. Perihepa tic and pericholecystic fluid. ADRENAL GLANDS: No significant masses or asymmetry. RIGHT KIDNEY AND URETER: No solid masses. No significant calcifications. No hydronephrosis or hyd roureter. LEFT KIDNEY AND URETER: 16 mm exophytic lesion off the left lower pole which is indeterminate seconda ry to density and motion artifact. No significant calcifications. No hydronephrosis or hydrourete r. AORTA AND VESSELS: Significant aortoiliac atherosclerosis without aneurysm. No dissection. Renal mary tomás, SMA, celiac without stenosis. RETROPERITONEUM: No retroperitoneal adenopathy, hemorrhage or masses. BOWEL AND PERITONEAL CAVITY: No evidence of intestinal obstruction. No focal bowel wall thickening. Moderate formed stool throughout the colon. APPENDIX: Not definitively visualized ABDOMINAL WALL: No masses. No hernias. BONES: No acute bony abnormality. No suspicious osseous lesions. Mild lower lumbar facet arthropath y. IMPRESSION: Limited exam secondary to patient motion artifact. 1. Cholelithiasis without gallbladder dilation or definite wall thickening as seen on prior ultrasou nd. Nonspecific small volume perihepatic and pericholecystic fluid. Findings nonspecific for acute cholecystitis. HIDA scan could be considered for definitive characterization. 2. Small bilateral effusions, right greater left, with associated basilar atelectasis. 3. Indeterminate exophytic 17 mm left renal lesions. Nonemergent Follow-up ultrasound or multiphase CT could be considered for more definitive characterization. 4. Cardiomegaly with extensive coronary atherosclerosis. TECHNICAL DOCUMENTATION: JOB ID: [id number] Quality ID # [id number]: Final reports with documentation of one or more dose reduction techniques (e.g., Au tomated exposure control, adjustment of the mA and/or kV according to patient size, use of iterative reconstruction technique) 2010 [employer]- All Rights Reserved Reading location - IP/workstation name: [email or web address]
--- NOTE | 2019-06-18 17:47 | PDOC PROGRESS REPORT ---
Subjective Progress Note for:: 06/18/19 Subjective:: EMMA HIGGINBOTHAM is a 89 year old male with a past medical history of congestive heart failure with an ejection fraction, paroxysmal atrial fibrillation, COPD, type 2 diabetes, status post coronary artery bypass graft and chronic indwelling [place] catheter admitted 06/14/2019 with COPD exacerbation, left lower lobe pneumonia, and urinary tract infection Patient was seen on morning rounds. He was found resting in bed, comfortably, on room air. He reports he is feeling well today; reports fatigue today. Otherwise, he denies fever, chills, chest pain, palpitations, abdominal pain, nausea vomiting and diarrhea. No family members present at this time; no concerns per patient. No concerns per nursing. Reason For Visit: PNEUMONIA Physical Exam Vital Signs: Temp Pulse Resp BP Pulse Ox 98.7 F 65 16 106/55 L 94 06/18/19 11:40 06/18/19 16:38 06/18/19 16:38 06/18/19 11:40 06/18/19 16:38 Intake & Output 06/17/19 06/18/19 06/19/19 06:59 06:59 06:59 Intake Total 780 886 170 Output Total 1300 1550 600 Balance -520 -664 -430 Weight 89.3 kg 90.2 kg General appearance: PRESENT: no acute distress, cooperative, hard of hearing, well-developed, well-nourished Head exam: PRESENT: atraumatic, normocephalic Eye exam: PRESENT: conjunctiva pink, EOMI, PERRLA. ABSENT: scleral icterus Mouth exam: PRESENT: moist, tongue midline Teeth exam: PRESENT: poor dentation Neck exam: ABSENT: carotid bruit, full ROM, JVD, lymphadenopathy, meningismus, tenderness, thyromegaly, tracheal deviation, tracheostomy, other Respiratory exam: PRESENT: rhonchi, symmetrical, unlabored, wheezes - bilateral espiratory wheezing, other - room air. ABSENT: rales Cardiovascular exam: PRESENT: RRR, +S1, +S2. ABSENT: diastolic murmur, rubs, systolic murmur Pulses: PRESENT: normal dorsalis pedis pul Vascular exam: PRESENT: normal capillary refill GI/Abdominal exam: PRESENT: normal bowel sounds, soft. ABSENT: distended, guarding, mass, organolmegaly, rebound, tenderness Rectal exam: PRESENT: deferred Extremities exam: PRESENT: full ROM. ABSENT: calf tenderness, clubbing, pedal edema Neurological exam: PRESENT: alert, awake, oriented to person, oriented to place, oriented to time, oriented to situation, CN II-XII grossly intact, other - Forgetful and intermittent confusion; at baseline per family. ABSENT: motor sensory deficit Psychiatric exam: PRESENT: appropriate affect, normal mood. ABSENT: homicidal ideation, suicidal ideation Skin exam: PRESENT: dry, intact, warm. ABSENT: cyanosis, rash Results Laboratory Results: 06/17/19 05:50 06/17/19 05:50 06/14/19 13:45 Troponin I 0.090 NT-Pro-B Natriuret Pep 691 H Impressions: Chest/Abdomen CTA 06/14/19 19:39 IMPRESSION: 1. No evidence for pulmonary embolus. Mildly enlarged 32 mm main pulmonary artery. 2. Calcifications aortic and mitral annulus. Cardiomegaly mainly right and left atria. 3. Significant right pleural effusion. May be related to cardiac or to liver disease. Other causes not excluded. Associated with collapse of the right lower lobe. Minimal left pleural effusion. Nonspecific mild edema in the aerated lungs. 4. IVC and hepatic vein dilatation. Fatty liver. Possible passive congestion of the liver. 5. Atherosclerotic disease includes coronary arteries abdominal aorta and its branches. 6. Gallstones without acute biliary abnormality. Abdomen Ultrasound 06/17/19 00:00 IMPRESSION: Technical limitations. Findings consistent with acute cholecystitis. Main portal vein flow pattern consistent with portal hypertension. Thoracentesis Ultrasound 06/17/19 00:00 IMPRESSION: SUCCESSFUL THORACENTESIS USING ULTRASOUND GUIDANCE. Chest X-Ray 06/17/19 12:20 IMPRESSION: No pneumothorax. Abdomen CT 06/18/19 00:00 IMPRESSION: Limited exam secondary to patient motion artifact. 1. Cholelithiasis without gallbladder dilation or definite wall thickening as seen on prior ultrasound. Nonspecific small volume perihepatic and pericholecystic fluid. Findings nonspecific for acute cholecystitis. HIDA scan could be considered for definitive characterization. 2. Small bilateral effusions, right greater left, with associated basilar atelectasis. 3. Indeterminate exophytic 17 mm left renal lesions. Nonemergent Follow-up ultrasound or multiphase CT could be considered for more definitive characterization. 4. Cardiomegaly with extensive coronary atherosclerosis. Assessment and Plan - Diagnosis (1) Pneumonia Qualifiers: Pneumonia type: due to unspecified organism Laterality: left Lung location: lower lobe of lung Qualified Code(s): J18.9 - Pneumonia, unspecified organism Is this a current diagnosis for this admission?: Yes Plan: Patient is admitted to the medical floor on continuous cardiac telemetry. Blood cultures are negative at 4 days Sputum cultures are pending; not yet obtained. Currently on Ancef for Pseudomonas UTI. He is supported with supplemental oxygen. Scheduled and as needed nebulizer treatments. Mucinex twice daily Robitussin as needed Encouraged pulmonary toilet. Lower suspicion for pneumonia secondary to bacterial cause; I do believe the patient's shortness of breath, and cough, are more likely to be related to his right pleural effusion. Now s/p thoracentesis; 1L removed (2) COPD exacerbation Is this a current diagnosis for this admission?: Yes Plan: Secondary to PNA and pleural effusion Will provide supplemental oxygen and BiPAP as needed to maintain saturations greater than 89%. Continue scheduled and as needed nebulizer treatments. IV solu-medrol Mucinex twice daily. Robitussin as needed. Pulmonary toilet is encouraged with incentive spirometer, flutter valve, and early ambulation. (3) Anemia Qualifiers: Anemia type: unspecified type Qualified Code(s): D64.9 - Anemia, unspecified Is this a current diagnosis for this admission?: Yes Plan: Hgb 10.6-> 11.0-> 10.4-> 10.7 Anemia panel is unremarkable. No evidence of bleeding. Continue on multivitamin. Monitor CBCs. (4) Diabetes Qualifiers: Diabetes mellitus type: type 2 Is this a current diagnosis for this admission?: Yes Plan: A1c 6.6%. Diet controlled. Patient is placed on a consistent carb diet. Registered dietitian clinical staff educator consulted. (5) Sinusitis Qualifiers: Sinusitis location: frontal Chronicity: subacute Qualified Code(s): J0 1.10 - Acute frontal sinusitis, unspecified Is this a current diagnosis for this admission?: Yes Plan: Flonase, empiric antibiotics initiated. (6) Thrombocytopenia Is this a current diagnosis for this admission?: Yes Plan: Unclear chronicity, follow-up CBC Arixtra for DVT prophylaxis (7) UTI (urinary tract infection) Qualifiers: Urinary tract infection type: catheter-associated UTI Indwelling urinary catheter type: indwelling urethral catheter Encounter type: initial encounter Qualified Code(s): T83.511A - Infection and inflammatory reaction due to indwelling urethral catheter, initial encounter; N39.0 - Urinary tract infection, site not specified Is this a current diagnosis for this admission?: Yes Plan: Possible contaminant from indwelling Castle; have replaced Castle. Blood cultures negative at 48 hours. Urine culture shows Pseudomonas and Enterococcus Continue IV Ancef and PO Levaquin. (8) Pleural effusion Is this a current diagnosis for this admission?: Yes Plan: CTA noted significant right-sided pleural effusion with associated partial right lung collapse. Unclear etiology. No obvious pneumonia, proBNP is 600, LFTs were normal. Now s/p thoracentesis w/ 1L fluid removed. Pleural effusion cell counts suggest transudative. Start Furosemide 40 mg daily and Spironolactone 100 mg daily. RUQ U/S suggested cholelithiasis with acute cholecystitis. Follow-up CT with contrast of the abdomen suggested cholelithiasis with no overt cholecystitis. We will follow-up with echocardiogram to evaluate for underlying CHF. (9) Cholelithiasis Qualifiers: Cholelithiasis location: gallbladder Cholecystitis presence: without cholecystitis Biliary obstruction: without biliary obstruction Qualified Code(s): K80.20 - Calculus of gallbladder without cholecystitis without obstruction Is this a current diagnosis for this admission?: Yes Plan: RUQ U/S suggested cholelithiasis with acute cholecystitis. Follow-up CT with contrast of the abdomen suggested cholelithiasis with no overt cholecystitis. Patient is afebrile, with normal WBCs, and asymptomatic at this time. Discussed with Dr. Mcallister; no surgical interventions recommended at this time. - Time Time Spent with patient: 35 or more minutes Medications reviewed and adjusted accordingly: Yes Anticipated discharge: Home
[2019-06-18] MEDS: METHYLPREDNISOLONE INJ 40 MG/1 ML SDV IV SCH (21:16)
--- NOTE | 2019-06-18 22:25 | XCELERA REPORT ---
[address] [address] Transthoracic Echocardiogram Report Name: EMMA HIGGINBOTHAM Age: 89 yrs Gender: Male : 1930 Patient Status: Inpatient Patient Location: [address] [place] [address] Study Date: 06/18/2019 06:44 PM Height: 71 in Weight: 198 lb BSA: 2.1 m2 Procedure: A complete two-dimensional transthoracic echocardiogram was performed (2D, M-mode, spectral and color flow Doppler). The study was technically difficult with many images being suboptimal in quality. Reason For Study: bilateral pleural effusions Ordering Physician: SUDHEER LAGOS Performed By: Corinne Roa Interpretation Summary LV EF is 50% Left ventricular systolic function is borderline reduced. There is moderate concentric left ventricular hypertrophy. The left ventricle is grossly normal size. Doppler measurements suggest pseudonormalized left ventricular relaxation, which is associated with grade II/IV or mild to moderate diastolic dysfunction Apical wall motion abnormality may reflect pacemaker activation The right ventricular systolic function is borderline reduced. The right ventricle is mildly dilated. There is a trace to mild amount of mitral regurgitation There is mild mitral stenosis No aortic regurgitation is present. There is no aortic valve stenosis There is a mild to moderate amount of tricuspid regurgitation There is moderate pulmonary hypertension by echo Right ventricular systolic pressure is estimated to be elevated at 50-60mmHg. The aortic root is not well visualized but is probably normal size. The inferior vena cava appeared normal and decreased < 50% with respiration (RAP 10-15 mmHg) There is no pericardial effusion. Pacemaker wire noted traversing the RV MMode/2D Measurements & Calculations RVDd: 4.2 cm LVIDd: 4.9 cm FS: 25.9 % Ao root diam: 3.0 cm IVSd: 1.7 cm LVIDs: 3.6 cm EDV(Teich): 110.4 ml Ao root area: 6.9 cm2 LVPWd: 1.5 cm ESV(Teich): 54.3 ml LA dimension: 5.8 cm EF(Teich): 50.8 % Doppler Measurements & Calculations MV E max chacha: MV P1/2t max chacha: Ao V2 max: LV V1 max P.5 cm/sec 160.2 cm/sec 160.1 cm/sec 4.5 mmHg MV A max chacha: MV P1/2t: 119.5 msec Ao max PG: LV V1 max: 23.0 cm/sec MVA(P1/2t): 1.8 cm2 10.3 mmHg 105.8 cm/sec MV E/A: 6.7 MV dec slope: 392.4 cm/sec2 MV dec time: 0.38 sec PA V2 max: TR max chacha: MV P1/2t-pr_phl: 85.8 cm/sec 340.7 cm/sec 119.5 msec PA max P.9 mmHgTR max P.4 mmHg Left Ventricle The left ventricle is grossly normal size. There is moderate concentric left ventricular hypertrophy. Left ventricular systolic function is borderline reduced. LV EF is 50%. Doppler measurements suggest pseudonormalized left ventricular relaxation, which is associated with grade II/IV or mild to moderate diastolic dysfunction. Apical wall motion abnormality may reflect pacemaker activation. Right Ventricle The right ventricle is mildly dilated. There is normal right ventricular wall thickness. The right ventricular systolic function is borderline reduced. Atria The right atrium is mildly dilated. The left atrium is borderline dilated. Interarterial septum not well visualized and not well dopplered. Cannot comment on ASD/PFO presence. Mitral Valve There is moderate mitral leaflet calcification. There is moderate mitral annular calcification. There is mild mitral stenosis. There is a trace to mild amount of mitral regurgitation. Aortic Valve The aortic valve is not well visualized secondary to technical limitations. There is no aortic valve stenosis. No aortic regurgitation is present. Tricuspid Valve The tricuspid valve is not well visualized, but is grossly normal. There is no tricuspid stenosis. There is a mild to moderate amount of tricuspid regurgitation. There is moderate pulmonary hypertension by echo. Right ventricular systolic pressure is estimated to be elevated at 50-60mmHg. Pulmonic Valve The pulmonic valve is not well visualized. Great Vessels The aortic root is not well visualized but is probably normal size. The inferior vena cava appeared normal and decreased < 50% with respiration (RAP 10-15 mmHg). Effusions There is no pericardial effusion. Incidental Findings Pacemaker wire noted. : SUDHEER LAGOS Shyamal
[2019-06-19] MEDS: IPRATROPIUM/ALBUTEROL 0.5-2.5 MG/3 ML AMPUL NEB SCH ×4 (00:10→23:54)
[2019-06-19] MEDS: METHYLPREDNISOLONE INJ 40 MG/1 ML SDV IV SCH ×3 (05:26→21:46)
[2019-06-19 06:09] LABS: HEMATOCRIT 33.2 % (37.9-51.0); HEMOGLOBIN 11.1 g/dL (13.5-17.0); MEAN CORPUSCULAR HEMOGLOBIN 29.3 pg (27.0-33.4); MEAN CORPUSCULAR HGB CONC 33.5 g/dL (32.0-36.0); MEAN CORPUSCULAR VOLUME 88 fl (80-97); RED BLOOD COUNT 3.79 10^6/uL (4.35-5.55); RED CELL DISTRIBUTION WIDTH 18.6 % (11.5-14.0); WHITE BLOOD COUNT 3.1 10^3/uL (4.0-10.5)
[2019-06-19 06:29] LABS: ALKALINE PHOSPHATASE 103 U/L (38-126); ANION GAP 11 (5-19); ASPARTATE AMINO TRANSFERASE 62 U/L (17-59); BILIRUBIN,DIRECT 0.3 mg/dL (0.0-0.4); BILIRUBIN,TOTAL 0.6 mg/dL (0.2-1.3); BLOOD UREA NITROGEN 37 mg/dL (7-20); CALCIUM 8.8 mg/dL (8.4-10.2); CARBON DIOXIDE 25 mmol/L (22-30); CHLORIDE 96 mmol/L (98-107); GLUCOSE 184 mg/dL (75-110); POTASSIUM 3.8 mmol/L (3.6-5.0); TOTAL PROTEIN 6.5 g/dL (6.3-8.2)
[2019-06-19 07:08] LABS: PLATELET COUNT 77 10^3/uL (150-450)
[2019-06-19] MEDS: SPIRONOLACTONE 25 MG TABLET PO SCH (11:11)
[2019-06-19] MEDS: FUROSEMIDE 40 MG TABLET PO SCH (11:11)
[2019-06-19] MEDS: FOLIC ACID 1 MG TABLET PO SCH (11:11)
[2019-06-19] MEDS: GUAIFENESIN 600 MG TABLET.SA PO SCH ×2 (11:12→21:46)
[2019-06-19] MEDS: LEVOFLOXACIN 750 MG TABLET PO SCH (11:12)
[2019-06-19] MEDS: MULTIVITAMIN TABLET PO SCH (11:12)
[2019-06-19] MEDS: CEFEPIME 1 GM/D5W RTU 1 GM/50 ML RTUPB IV SCH ×2 (11:12→21:46)
[2019-06-19] MEDS: FLUTICASONE NASAL SPRAY 50 MCG/SPRY 120 SPRAY/16 GM NASL SCH (11:14)
[2019-06-19] MEDS ORDERED: ALBUTEROL SULFATE 0.083% NEB 2.5 MG/3 ML AMPUL NEB PRN (13:44)
[2019-06-19] MEDS ORDERED: VANCOMYCIN HCL 0 MG in DEXTROSE 5%-WATER 250 ML IV NR (13:45)
--- NOTE | 2019-06-19 14:02 | PDOC PROGRESS REPORT ---
Subjective Progress Note for:: 06/19/19 Subjective:: EMMA HIGGINBOTHAM is a 89 year old male with a past medical history of congestive heart failure with an ejection fraction, paroxysmal atrial fibrillation, COPD, type 2 diabetes, status post coronary artery bypass graft and chronic indwelling Castle catheter admitted 06/14/2019 with COPD exacerbation, left lower lobe pneumonia, and urinary tract infection Patient was seen on morning rounds. He was found resting in bed, comfortably, on room air. He reports he is feeling unwell today; reports fatigue, nonproductive cough, but otherwise unable to specify. He does tell me that he is hopeful to go home soon. Otherwise, he denies fever, chills, chest pain, palpitations, abdominal pain, nausea vomiting and diarrhea. No family members present at this time; no concerns per patient. No concerns per nursing. Reason For Visit: PNEUMONIA Physical Exam Vital Signs: Temp Pulse Resp BP Pulse Ox 97.6 F 65 19 110/56 L 93 06/19/19 12:31 06/19/19 12:31 06/19/19 12:31 06/19/19 12:31 06/19/19 12:31 Intake & Output 06/18/19 06/19/19 06/20/19 06:59 06:59 06:59 Intake Total 886 910 50 Output Total 1550 2150 Balance -664 -1240 50 Weight 90.2 kg 89 kg General appearance: PRESENT: no acute distress, cooperative, hard of hearing, well-developed, well-nourished, other - overweight Head exam: PRESENT: atraumatic, normocephalic Eye exam: PRESENT: conjunctiva pink, EOMI, PERRLA. ABSENT: scleral icterus Ear exam: PRESENT: normal external ear exam Mouth exam: PRESENT: moist, tongue midline Teeth exam: PRESENT: poor dentation Respiratory exam: PRESENT: rhonchi, symmetrical, unlabored. ABSENT: rales, wheezes Cardiovascular exam: PRESENT: irregular rhythm, +S1, +S2. ABSENT: diastolic murmur, rubs, systolic murmur Pulses: PRESENT: normal dorsalis pedis pul Vascular exam: PRESENT: normal capillary refill GI/Abdominal exam: PRESENT: normal bowel sounds, soft. ABSENT: distended, guarding, mass, organolmegaly, rebound, tenderness Rectal exam: PRESENT: deferred Gentrourinary exam: PRESENT: indwelling catheter Extremities exam: PRESENT: full ROM. ABSENT: calf tenderness, clubbing, pedal edema Neurological exam: PRESENT: alert, awake, oriented to person, oriented to place, CN II-XII grossly intact, other - Forgetful and intermittent confusion; at baseline per family. ABSENT: motor sensory deficit Psychiatric exam: PRESENT: appropriate affect, normal mood. ABSENT: homicidal ideation, suicidal ideation Skin exam: PRESENT: dry, intact, warm. ABSENT: cyanosis, rash Results Laboratory Results: 06/19/19 05:16 06/19/19 05:16 06/19/19 06/19/19 05:16 05:16 WBC 3.1 L RBC 3.79 L Hgb 11.1 L Hct 33.2 L MCV 88 MCH 29.3 MCHC 33.5 RDW 18.6 H Plt Count 77 L Sodium 132.0 L Potassium 3.8 Chloride 96 L Carbon Dioxide 25 Anion Gap 11 BUN 37 H Creatinine 0.92 Est GFR ( Amer) > 60 Glucose 184 H Calcium 8.8 Total Bilirubin 0.6 AST 62 H Alkaline Phosphatase 103 Total Protein 6.5 Albumin 3.0 L 06/17/19 10:10 Pleural Fluid - Right Pleural Effusion Gram Stain - Final 06/14/19 13:45 Troponin I 0.090 NT-Pro-B Natriuret Pep 691 H Impressions: Chest/Abdomen CTA 06/14/19 19:39 IMPRESSION: 1. No evidence for pulmonary embolus. Mildly enlarged 32 mm main pulmonary artery. 2. Calcifications aortic and mitral annulus. Cardiomegaly mainly right and left atria. 3. Significant right pleural effusion. May be related to cardiac or to liver disease. Other causes not excluded. Associated with collapse of the right lower lobe. Minimal left pleural effusion. Nonspecific mild edema in the aerated lungs. 4. IVC and hepatic vein dilatation. Fatty liver. Possible passive congestion of the liver. 5. Atherosclerotic disease includes coronary arteries abdominal aorta and its branches. 6. Gallstones without acute biliary abnormality. Abdomen Ultrasound 06/17/19 00:00 IMPRESSION: Technical limitations. Findings consistent with acute cholecystitis. Main portal vein flow pattern consistent with portal hypertension. Thoracentesis Ultrasound 06/17/19 00:00 IMPRESSION: SUCCESSFUL THORACENTESIS USING ULTRASOUND GUIDANCE. Chest X-Ray 06/17/19 12:20 IMPRESSION: No pneumothorax. Abdomen CT 06/18/19 00:00 IMPRESSION: Limited exam secondary to patient motion artifact. 1. Cholelithiasis without gallbladder dilation or definite wall thickening as seen on prior ultrasound. Nonspecific small volume perihepatic and pericholecystic fluid. Findings nonspecific for acute cholecystitis. HIDA scan could be considered for definitive characterization. 2. Small bilateral effusions, right greater left, with associated basilar atelectasis. 3. Indeterminate exophytic 17 mm left renal lesions. Nonemergent Follow-up ultrasound or multiphase CT could be considered for more definitive characterization. 4. Cardiomegaly with extensive coronary atherosclerosis. Assessment and Plan - Diagnosis (1) Pneumonia Qualifiers: Pneumonia type: due to unspecified organism Laterality: left Lung location: lower lobe of lung Qualified Code(s): J18.9 - Pneumonia, unspecified organism Is this a current diagnosis for this admission?: Yes Plan: Patient is admitted to the medical floor on continuous cardiac telemetry. Blood cultures are negative at 4 days Sputum cultures are pending; not yet obtained. He is supported with supplemental oxygen. Scheduled and as needed nebulizer treatments. Mucinex twice daily Robitussin as needed Encouraged pulmonary toilet. Antibiotics are adjusted r/t urine culture results; Cefepime and Vancomycin Lower suspicion for pneumonia secondary to bacterial cause; I do believe the patient's shortness of breath, and cough, are more likely to be related to his right pleural effusion. Now s/p thoracentesis; 1L removed (2) COPD exacerbation Is this a current diagnosis for this admission?: Yes Plan: Secondary to PNA and pleural effusion Remains on room air, decreased wheezing today Will provide supplemental oxygen and BiPAP as needed to maintain saturations greater than 89%. Continue scheduled and as needed nebulizer treatments. IV solu-medrol; decreased dose today Mucinex twice daily. Robitussin as needed. Pulmonary toilet is encouraged with incentive spirometer, flutter valve, and early ambulation. (3) Anemia Qualifiers: Anemia type: unspecified type Qualified Code(s): D64.9 - Anemia, unspecified Is this a current diagnosis for this admission?: Yes Plan: Hgb 10.6-> 11.0-> 10.4-> 10.7-> 11.1 Anemia panel is unremarkable. No evidence of bleeding. Continue on multivitamin. Monitor CBCs. (4) Diabetes Qualifiers: Diabetes mellitus type: type 2 Is this a current diagnosis for this admission?: Yes Plan: A1c 6.6%. Diet controlled. Patient is placed on a consistent carb diet. Registered dietitian sales representative leather goods consulted. (5) Sinusitis Qualifiers: Sinusitis location: frontal Chronicity: subacute Qualified Code(s): J 01.10 - Acute frontal sinusitis, unspecified Is this a current diagnosis for this admission?: Yes Plan: Flonase (6) Thrombocytopenia Is this a current diagnosis for this admission?: Yes Plan: Unclear chronicity, follow-up CBC Arixtra for DVT prophylaxis (7) UTI (urinary tract infection) Qualifiers: Urinary tract infection type: catheter-associated UTI Indwelling urinary catheter type: indwelling urethral catheter Encounter type: initial encounter Qualified Code(s): T83.511A - Infection and inflammatory reaction due to indwelling urethral catheter, initial encounter; N39.0 - Urinary tract infection, site not specified Is this a current diagnosis for this admission?: Yes Plan: Possible contaminant from indwelling Castle; have replaced Castle. Blood cultures negative at 48 hours. Urine culture shows Pseudomonas and Enterococcus Correction; patient has not been receiving Ancef. He has been on Cefepime x 3 days. Continue Cefepime x 10 days related to chronic indwelling catheter (DANII) Start Vancomycin for enterococcus. Continue x10 days. (8) Pleural effusion Is this a current diagnosis for this admission?: Yes Plan: CTA noted significant right-sided pleural effusion with associated partial right lung collapse. Likely multifactorial secondary to underlying liver disease and CHF. No obvious pneumonia, proBNP is 600, LFTs were normal. Now s/p thoracentesis w/ 1L fluid removed. Pleural effusion cell counts suggest transudative. Start Furosemide 40 mg daily and Spironolactone 100 mg daily. RUQ U/S suggested cholelithiasis with acute cholecystitis. Also notable for portal hypertension. Follow-up CT with contrast of the abdomen suggested cholelithiasis with no overt cholecystitis. Echocardiograph shows LVEF 50% with mild to moderate diastolic dysfunction. (9) Cholelithiasis Qualifiers: Cholelithiasis location: gallbladder Cholecystitis presence: without cholecystitis Biliary obstruction: without biliary obstruction Qualified Code(s): K80.20 - Calculus of gallbladder without cholecystitis without obstruction Is this a current diagnosis for this admission?: Yes Plan: RUQ U/S suggested cholelithiasis with acute cholecystitis. Follow-up CT with contrast of the abdomen suggested cholelithiasis with no overt cholecystitis. Patient is afebrile, with normal WBCs, and asymptomatic at this time. Discussed with Dr. Mcallister; no surgical interventions recommended at this time. (10) CHF (congestive heart failure) Qualifiers: Heart failure type: diastolic Heart failure chronicity: chronic Qualified Code(s): I50.32 - Chronic diastolic (congestive) heart failure Is this a current diagnosis for this admission?: Yes Plan: Echocardiograph shows LVEF 50% with mild to moderate diastolic dysfunction. Not in acute exacerbation at this time. Continue cardiac diet. Fluid restricted to 2 L daily. Furosemide and spironolactone. We will start skis me low-dose low-dose lisinopril and metoprolol. - Plan Summary Summary: Reviewed the patient's clinical course, assessment, and work-up thus far with Dr. Perea. Antibiotic adjustments made per his recommendations. - Time Time Spent with patient: 35 or more minutes Medications reviewed and adjusted accordingly: Yes Anticipated discharge: Home with Homehealth Within: Other - 06/29/19
[2019-06-19] MEDS ORDERED: BISACODYL 10 MG SUPP.RECT PR ONE (14:15)
[2019-06-19] MEDS: VANCOMYCIN HCL 750 MG in DEXTROSE 5%-WATER 250 ML IV SCH (18:30)
[2019-06-19] MEDS: SIMVASTATIN 10 MG TABLET PO SCH (21:46)
[2019-06-20 04:58] LABS: HEMATOCRIT 37.8 % (37.9-51.0); HEMOGLOBIN 12.5 g/dL (13.5-17.0); MEAN CORPUSCULAR HEMOGLOBIN 28.4 pg (27.0-33.4); MEAN CORPUSCULAR HGB CONC 33.2 g/dL (32.0-36.0); MEAN CORPUSCULAR VOLUME 86 fl (80-97); PLATELET COUNT 119 10^3/uL (150-450); RED BLOOD COUNT 4.41 10^6/uL (4.35-5.55); RED CELL DISTRIBUTION WIDTH 18.4 % (11.5-14.0)
[2019-06-20 05:00] LABS: WHITE BLOOD COUNT 6.7 10^3/uL (4.0-10.5)
[2019-06-20 05:12] LABS: ANION GAP 13 (5-19); BLOOD UREA NITROGEN 40 mg/dL (7-20); CALCIUM 9.2 mg/dL (8.4-10.2); CARBON DIOXIDE 26 mmol/L (22-30); CHLORIDE 94 mmol/L (98-107); GLUCOSE 181 mg/dL (75-110); POTASSIUM 3.6 mmol/L (3.6-5.0)
[2019-06-20] MEDS: METHYLPREDNISOLONE INJ 40 MG/1 ML SDV IV SCH ×2 (06:08→21:05)
[2019-06-20] MEDS: VANCOMYCIN HCL 750 MG in DEXTROSE 5%-WATER 250 ML IV SCH ×2 (06:37→17:40)
[2019-06-20] MEDS: IPRATROPIUM/ALBUTEROL 0.5-2.5 MG/3 ML AMPUL NEB SCH ×3 (08:12→23:56)
[2019-06-20] MEDS: FLUTICASONE NASAL SPRAY 50 MCG/SPRY 120 SPRAY/16 GM NASL SCH (09:46)
[2019-06-20] MEDS: LISINOPRIL 5 MG TABLET PO SCH (09:46)
[2019-06-20] MEDS: CEFEPIME 1 GM/D5W RTU 1 GM/50 ML RTUPB IV SCH ×2 (09:46→21:05)
[2019-06-20] MEDS: FOLIC ACID 1 MG TABLET PO SCH (09:46)
[2019-06-20] MEDS: MULTIVITAMIN TABLET PO SCH (09:47)
[2019-06-20] MEDS: METOPROLOL SUCCINATE 25 MG TAB.SR.24H PO SCH (09:49)
[2019-06-20] MEDS: GUAIFENESIN 600 MG TABLET.SA PO SCH ×2 (09:49→21:16)
[2019-06-20] MEDS: SPIRONOLACTONE 25 MG TABLET PO SCH (09:50)
[2019-06-20] MEDS: FUROSEMIDE 40 MG TABLET PO SCH (09:50)
[2019-06-20] MEDS ORDERED: ALFUZOSIN HCL 10 MG PO SCH (10:00)
--- NOTE | 2019-06-20 14:21 | PDOC PROGRESS REPORT ---
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 He was found resting in bed, comfortably, on room air. He reports he is feeling well today. He does report nonproductive cough. He is orientated to self and family (partially place as he is able to identify he is "somewhere for help") and mildly encephalopathic (startles easily, picking at sheets). ROS is somewhat limited secondary to mental status. He does to appear to be comfortable and is not noted to be in any acute distress at this time. Long discussion had with daughter in person and son by phone. All questions answered. No concerns per nursing. Reason For Visit: PNEUMONIA Physical Exam Vital Signs: Temp Pulse Resp BP Pulse Ox 98.2 F 62 16 128/63 H 91 L 06/20/19 07:28 06/20/19 08:14 06/20/19 08:14 06/20/19 07:28 06/20/19 08:14 Intake & Output 06/19/19 06/20/19 06/21/19 06:59 06:59 06:59 Intake Total 910 1230 240 Output Total 2150 2150 600 Balance -1240 -920 -360 Weight 89 kg 89.5 kg General appearance: PRESENT: no acute distress, cooperative, hard of hearing, well-developed, well-nourished Head exam: PRESENT: atraumatic, normocephalic Eye exam: PRESENT: conjunctiva pink, EOMI, PERRLA. ABSENT: scleral icterus Mouth exam: PRESENT: moist, tongue midline Teeth exam: PRESENT: poor dentation Respiratory exam: PRESENT: rhonchi, symmetrical, unlabored, other - room air. ABSENT: rales, wheezes Cardiovascular exam: PRESENT: RRR, +S1, +S2. ABSENT: diastolic murmur, rubs, systolic murmur Pulses: PRESENT: normal dorsalis pedis pul Vascular exam: PRESENT: normal capillary refill GI/Abdominal exam: PRESENT: normal bowel sounds, soft. ABSENT: distended, guarding, mass, organolmegaly, rebound, tenderness Rectal exam: PRESENT: deferred Gentrourinary exam: PRESENT: indwelling catheter Extremities exam: PRESENT: full ROM. ABSENT: calf tenderness, clubbing, pedal edema Neurological exam: PRESENT: alert, awake, oriented to person, oriented to place, CN II-XII grossly intact, other - Pleasantly confused, socially appropriate. ABSENT: motor sensory deficit Psychiatric exam: PRESENT: appropriate affect, normal mood. ABSENT: homicidal ideation, suicidal ideation Skin exam: PRESENT: dry, intact, warm. ABSENT: cyanosis, rash Results Laboratory Results: 06/20/19 04:35 06/20/19 04:35 06/20/19 06/20/19 04:35 04:35 WBC 6.7 D RBC 4.41 Hgb 12.5 L Hct 37.8 L MCV 86 MCH 28.4 MCHC 33.2 RDW 18.4 H Plt Count 119 L Sodium 132.9 L Potassium 3.6 Chloride 94 L Carbon Dioxide 26 Anion Gap 13 BUN 40 H Creatinine 0.88 Est GFR ( Amer) > 60 Glucose 181 H Calcium 9.2 06/17/19 10:10 Pleural Fluid - Right Pleural Effusion Gram Stain - Final 06/17/19 10:10 Pleural Fluid - Right Pleural Effusion Body Fluid Culture - Final NO AEROBIC OR ANAEROBIC ORGANISMS RECOVERED 06/14/19 17:00 Blood Blood Culture - Final NO GROWTH IN 5 DAYS 06/14/19 13:45 Blood Blood Culture - Final NO GROWTH IN 5 DAYS 06/14/19 13:45 Troponin I 0.090 NT-Pro-B Natriuret Pep 691 H Impressions: Chest/Abdomen CTA 06/14/19 19:39 IMPRESSION: 1. No evidence for pulmonary embolus. Mildly enlarged 32 mm main pulmonary artery. 2. Calcifications aortic and mitral annulus. Cardiomegaly mainly right and left atria. 3. Significant right pleural effusion. May be related to cardiac or to liver disease. Other causes not excluded. Associated with collapse of the right lower lobe. Minimal left pleural effusion. Nonspecific mild edema in the aerated lungs. 4. IVC and hepatic vein dilatation. Fatty liver. Possible passive congestion of the liver. 5. Atherosclerotic disease includes coronary arteries abdominal aorta and its branches. 6. Gallstones without acute biliary abnormality. Abdomen Ultrasound 06/17/19 00:00 IMPRESSION: Technical limitations. Findings consistent with acute cholecystitis. Main portal vein flow pattern consistent with portal hypertension. Thoracentesis Ultrasound 06/17/19 00:00 IMPRESSION: SUCCESSFUL THORACENTESIS USING ULTRASOUND GUIDANCE. Chest X-Ray 06/17/19 12:20 IMPRESSION: No pneumothorax. Abdomen CT 06/18/19 00:00 IMPRESSION: Limited exam secondary to patient motion artifact. 1. Cholelithiasis without gallbladder dilation or definite wall thickening as seen on prior ultrasound. Nonspecific small volume perihepatic and pericholecystic fluid. Findings nonspecific for acute cholecystitis. HIDA scan could be considered for definitive characterization. 2. Small bilateral effusions, right greater left, with associated basilar atelectasis. 3. Indeterminate exophytic 17 mm left renal lesions. Nonemergent Follow-up ultrasound or multiphase CT could be considered for more definitive characterization. 4. Cardiomegaly with extensive coronary atherosclerosis. Assessment and Plan - Diagnosis (1) UTI (urinary tract infection) Qualifiers: Urinary tract infection type: catheter-associated UTI Indwelling urinary catheter type: indwelling urethral catheter Encounter type: initial encounter Qualified Code(s): T83.511A - Infection and inflammatory reaction due to indwelling urethral catheter, initial encounter; N39.0 - Urinary tract infection, site not specified Is this a current diagnosis for this admission?: Yes Plan: Possible contaminant from indwelling Castle; have replaced Castle. Blood cultures negative at 48 hours. Urine culture shows Pseudomonas and Enterococcus Correction; patient has not been receiving Ancef. He has been on Cefepime x 3 days. Continue Cefepime x 10 days related to chronic indwelling catheter (DANII). EOT 06/24. Start Vancomycin for enterococcus. Continue x10 days. EOT 06/27. Will ask discharge planning to see if patient will qualify for home infusion therapy. (2) Pneumonia Qualifiers: Pneumonia type: due to unspecified organism Laterality: left Lung location: lower lobe of lung Qualified Code(s): J18.9 - Pneumonia, unspecified organism Is this a current diagnosis for this admission?: Yes Plan: Patient is admitted to the medical floor on continuous cardiac telemetry. Blood cultures are negative Sputum cultures are pending; not yet obtained. We will get repeat chest x-ray in the morning. He is supported with supplemental oxygen; thus far maintaining saturations on room air. Scheduled and as needed nebulizer treatments. Mucinex twice daily Robitussin as needed Encouraged pulmonary toilet. Will try chest physiotherapy as the patient is unable to participate and flutter valve/incentive spirometer Antibiotics are adjusted r/t urine culture results; Cefepime and Vancomycin Lower suspicion for pneumonia secondary to bacterial cause; I do believe the patient's shortness of breath, and cough, are more likely to be related to his right pleural effusion. Now s/p thoracentesis; 1L removed (3) COPD exacerbation Is this a current diagnosis for this admission?: Yes Plan: Secondary to PNA and pleural effusion Remains on room air, decreased wheezing today Will provide supplemental oxygen as needed to maintain saturations greater than 89%. Continue scheduled and as needed nebulizer treatments. IV solu-medrol; decreased dose today Mucinex twice daily. Robitussin as needed. Pulmonary toilet is encouraged with incentive spirometer, flutter valve, and early ambulation. Trial chest physiotherapy (4) Anemia Qualifiers: Anemia type: unspecified type Qualified Code(s): D64.9 - Anemia, unspecified Is this a current diagnosis for this admission?: Yes Plan: Hgb 10.6-> 11.0-> 10.4-> 10.7-> 11.1 Anemia panel is unremarkable. No evidence of bleeding. Continue on multivitamin. Monitor CBCs. (5) Diabetes Qualifiers: Diabetes mellitus type: type 2 Is this a current diagnosis for this admission?: Yes Plan: A1c 6.6%. Diet controlled. Patient is placed on a consistent carb diet. Registered dietitian critical care educator consulted. (6) Sinusitis Qualifiers: Sinusitis location: frontal Chronicity: subacute Qualified Code(s): J01.10 - Acute frontal sinusitis, unspecified Is this a current diagnosis for this admission?: Yes Plan: Flonase (7) Thrombocytopenia Is this a current diagnosis for this admission?: Yes Plan: Improved. Unclear chronicity, follow-up CBC Arixtra for DVT prophylaxis (8) Pleural effusion Is this a current diagnosis for this admission?: Yes Plan: CTA noted significant right-sided pleural effusion with associated partial right lung collapse. Likely multifactorial secondary to underlying liver disease and CHF. No obvious pneumonia, proBNP is 600, LFTs were normal. Now s/p thoracentesis w/ 1L fluid removed. Pleural effusion cell counts suggest transudative. Cytology is negative. Follow up CXR tomorrow. Start Furosemide 40 mg daily and Spironolactone 100 mg daily. RUQ U/S suggested cholelithiasis with acute cholecystitis. Also notable for portal hypertension. Follow-up CT with contrast of the abdomen suggested cholelithiasis with no overt cholecystitis. Echocardiograph shows LVEF 50% with mild to moderate diastolic dysfunction. (9) Cholelithiasis Qualifiers: Cholelithiasis location: gallbladder Cholecystitis presence: without cholecystitis Biliary obstruction: without biliary obstruction Qualified Code(s): K80.20 - Calculus of gallbladder without cholecystitis without obstruction Is this a current diagnosis for this admission?: Yes Plan: RUQ U/S suggested cholelithiasis with acute cholecystitis. Follow-up CT with contrast of the abdomen suggested cholelithiasis with no overt cholecystitis. Patient is afebrile, with normal WBCs, and asymptomatic at this time. Discussed with Dr. Mcallister; no surgical interventions recommended at this time. (10) CHF (congestive heart failure) Qualifiers: Heart failure type: diastolic Heart failure chronicity: chronic Qualified Code(s): I50.32 - Chronic diastolic (congestive) heart failure Is this a current diagnosis for this admission?: Yes Plan: Echocardiograph shows LVEF 50% with mild to moderate diastolic dysfunction. Not in acute exacerbation at this time. Continue cardiac diet. Fluid restricted to 2 L daily. Furosemide and spironolactone. We will start skis me low-dose low-dose lisinopril and metoprolol. Daily weights, strict I&Os - Plan Summary Summary: Reviewed the patient's clinical course, assessment, and work-up thus far with Dr. Perea. Antibiotic adjustments made per his recommendations. - Time Time Spent with patient: 35 or more minutes Medications reviewed and adjusted accordingly: Yes Anticipated discharge: Home with Homehealth
[2019-06-20] MEDS: DOCUSATE SODIUM 100 MG CAPSULE PO SCH (17:41)
[2019-06-20] MEDS: SIMVASTATIN 10 MG TABLET PO SCH (21:16)
[2019-06-21] MEDS: VANCOMYCIN HCL 750 MG in DEXTROSE 5%-WATER 250 ML IV SCH ×2 (06:14→18:09)
[2019-06-21 07:25] LABS: VANCOMYCIN,TROUGH 12.7 ug/mL (5.0-20.0)
[2019-06-21] MEDS: IPRATROPIUM/ALBUTEROL 0.5-2.5 MG/3 ML AMPUL NEB SCH ×2 (08:31→16:09)
--- NOTE | 2019-06-21 08:46 | RADIOLOGY REPORT (SQ) ---
EXAM DESCRIPTION: CHEST SINGLE VIEW COMPLETED DATE/TIME: 06/21/2019 8:35 am REASON FOR STUDY: cough, dyspnea COMPARISON: 06/17/2019 EXAM PARAMETERS: NUMBER OF VIEWS: One view. TECHNIQUE: Single frontal radiographic view of the chest acquired. RADIATION DOSE: NA LIMITATIONS: None. FINDINGS: LUNGS AND PLEURA: There is increasing right lower lobe infiltrate and right effusion. Inc reasing left perihilar and basilar infiltrate. No pneumothorax. MEDIASTINUM AND HILAR STRUCTURES: No masses. Contour normal. HEART AND VASCULAR STRUCTURES: Heart is enlarged. The central vascular prominence. BONES: No acute findings. HARDWARE: Unchanged. OTHER: No other significant finding. IMPRESSION: Increasing bilateral basilar and left perihilar infiltrate. Increasing right pleural ef fusion. Findings most likely represent pneumonia. TECHNICAL DOCUMENTATION: JOB ID: [id number] 2010 [employer]- All Rights Reserved Reading location - IP/workstation name: [email or web address]
[2019-06-21] MEDS: MAGNESIUM HYDROXIDE SUSP 30 ML UDCUP PO SCH ×2 (10:29→10:49)
[2019-06-21] MEDS: FLUTICASONE NASAL SPRAY 50 MCG/SPRY 120 SPRAY/16 GM NASL SCH (10:29)
[2019-06-21] MEDS: DOCUSATE SODIUM 100 MG CAPSULE PO SCH ×2 (10:30→18:09)
[2019-06-21] MEDS: METHYLPREDNISOLONE INJ 40 MG/1 ML SDV IV SCH (10:30)
[2019-06-21] MEDS: METOPROLOL SUCCINATE 25 MG TAB.SR.24H PO SCH (10:31)
[2019-06-21] MEDS: MULTIVITAMIN TABLET PO SCH (10:31)
[2019-06-21] MEDS: GUAIFENESIN 600 MG TABLET.SA PO SCH ×2 (10:31→23:18)
[2019-06-21] MEDS: FUROSEMIDE 40 MG TABLET PO SCH (10:31)
[2019-06-21] MEDS: FOLIC ACID 1 MG TABLET PO SCH (10:32)
[2019-06-21] MEDS: SPIRONOLACTONE 25 MG TABLET PO SCH (10:32)
[2019-06-21] MEDS: LISINOPRIL 5 MG TABLET PO SCH (10:32)
[2019-06-21] MEDS: CEFEPIME 1 GM/D5W RTU 1 GM/50 ML RTUPB IV SCH ×2 (10:32→23:18)
[2019-06-21] MEDS ORDERED: ACETAMINOPHEN 325 MG TABLET PO PRN (11:31)
[2019-06-21] MEDS: ACETAMINOPHEN 325 MG TABLET PO SCH ×3 (13:38→23:18)
--- NOTE | 2019-06-21 15:14 | RADIOLOGY REPORT (SQ) ---
EXAM DESCRIPTION: PICC INSERTION; FLUORO/CV PLACEMENT; U/S GUIDE FOR VASCULAR ACCESS COMPLETED DATE/TIME: 06/21/2019 3:01 pm REASON FOR STUDY: IV antibiotics x10 days; IV ABX COMPARISON: None. FLUOROSCOPY TIME: 1 minutes 56 seconds 2 images saved to PACS. TECHNIQUE: Fluoroscopic and ultrasound guided PICC placement. LIMITATIONS: None. PROCEDURE: After written consent and assessment were obtained, the patient was brought into the fluo roscopy room and placed supine on the table. Ultrasound evaluation of potential access sites were per formed. After successfully identifying a patent right basilic vein, the right arm was prepped and marga ped in a sterile fashion along with the ultrasound probe. The entry site was anesthetized with 1% lid ocaine. A 21 gauge 7 cm needle was advanced through the skin and into the basilic vein under live ult rasound guidance. An ultrasound image was saved to PACS confirming access site. A .018 guide wire w as then inserted through the needle and into the venous system. The needle was then removed and an 11 blade scalpel was used to make a 1cm skin incision. A 5 fr peel-away sheath was advanced over the w bill and into the venous system. A measurement was then made using the existing wire and live fluorosc opic guidance. The wire was then removed and trimmed. The PICC was advanced through the peel-away she ath and into the venous system. The peel-away sheath was removed and the catheter was adhered to the patients arm with a stat lock. The catheter was then aspirated and flushed and a sterile bandage was placed over the access site. A fluoroscopic spot image was saved to PACS confirming the catheter tip within the superior vena cava. IMPRESSION: SUCCESSFUL PLACEMENT OF A 5 FR DUAL LUMEN 34 CM PICC IN THE RIGHT BASILIC VEIN. COMMENT: Patient medication list reviewed: Yes- Quality ID# 130:Eligible professional attests to doc umenting in the medical record they obtained, updated, or reviewed the patient's current medications. . Quality ID 145: Final reports for procedures using fluoroscopy that document radiation exposure ander pedrito, or exposure time and number of fluorographic images (if radiation exposure indices are not avail able) Quality ID #76: The patient was prepped and draped using maximum sterile barrier technique including cap, mask, sterile gown, sterile gloves, a large sterile sheet, hand hygiene, and 2% Chlorhexidine fo r cutaneous antisepsis. When ultrasound is used, sterile ultrasound techniques are followed requiring sterile gel and sterile probes. TECHNICAL DOCUMENTATION: JOB ID: [id number] 2010 [employer]- All Rights Reserved rev-08/22 Reading location - IP/workstation name: [email or web address]
[2019-06-21] MEDS: FONDAPARINUX SODIUM INJ 2.5 MG/0.5 ML DISP.SYRIN SUBCUT SCH (16:19)
--- NOTE | 2019-06-21 18:46 | PDOC PROGRESS REPORT ---
Subjective Progress Note for:: 06/21/19 Subjective:: EMMA HIGGINBOTHAM is a 89 year old male with a past medical history of congestive heart failure with an ejection fraction, paroxysmal atrial fibrillation, COPD, type 2 diabetes, status post coronary artery bypass graft and chronic indwelling Castle catheter admitted 06/14/2019 with COPD exacerbation, left lower lobe pneumonia, and urinary tract infection Patient was seen on morning rounds with his daughter present. He was found resting in bed, comfortably, on room air. He was sleeping but woke easily when I said his name. He did quickly fall back to sleep; fatigued from working with physical therapy this morning. ROS is limited secondary to mental status/fatigue. He does to appear to be comfortable and is not noted to be in any acute distress at this time. No new symptoms noted by daughter. Long discussion had with daughter, again, today regarding disposition. We discussed hospital psychosis and typical increased confusion in older patients with dementia who have prolonged hospital stays. I expressed that the patient would likely have increased confusion until he had returned home and had a period of time to adjust back to his familiar surroundings. Again advised the family member that I felt the safest place for the patient to go would be home [facility] home health nursing and infusion services if this could be arranged. All questions answered. No concerns per nursing. Reason For Visit: PNEUMONIA Physical Exam Vital Signs: Temp Pulse Resp BP Pulse Ox 97.7 F 65 24 H 98/47 L 90 L 06/21/19 16:00 06/21/19 16:00 06/21/19 16:00 06/21/19 16:00 06/21/19 16:00 Intake & Output 06/20/19 06/21/19 06/22/19 06:59 06:59 06:59 Intake Total 1230 1200 540 Output Total 2150 2075 Balance -920 -875 540 Weight 89.5 kg 89.1 kg General appearance: PRESENT: no acute distress, cooperative, hard of hearing, well-developed, well-nourished Head exam: PRESENT: atraumatic, normocephalic Eye exam: PRESENT: conjunctiva pink, EOMI, PERRLA. ABSENT: scleral icterus Mouth exam: PRESENT: moist, tongue midline Teeth exam: PRESENT: poor dentation Neck exam: ABSENT: carotid bruit, JVD, lymphadenopathy, thyromegaly Respiratory exam: PRESENT: rhonchi, symmetrical, unlabored, other - room air. ABSENT: rales, wheezes Cardiovascular exam: PRESENT: RRR. ABSENT: diastolic murmur, rubs, systolic murmur Vascular exam: PRESENT: normal capillary refill Gentrourinary exam: PRESENT: indwelling catheter Extremities exam: PRESENT: full ROM. ABSENT: calf tenderness, clubbing, pedal edema Neurological exam: PRESENT: oriented to person, CN II-XII grossly intact, other - sleeping soundly. Increased confusion from baseline when awake; remains conversational and social appropriate.. ABSENT: motor sensory deficit Skin exam: PRESENT: dry, intact, warm. ABSENT: cyanosis, rash Results Laboratory Results: 06/20/19 04:35 06/21/19 05:50 06/21/19 05:50 Creatinine 0.88 Est GFR ( Amer) > 60 06/14/19 13:45 Troponin I 0.090 NT-Pro-B Natriuret Pep 691 H Impressions: Chest/Abdomen CTA 06/14/19 19:39 IMPRESSION: 1. No evidence for pulmonary embolus. Mildly enlarged 32 mm main pulmonary artery. 2. Calcifications aortic and mitral annulus. Cardiomegaly mainly right and left atria. 3. Significant right pleural effusion. May be related to cardiac or to liver disease. Other causes not excluded. Associated with collapse of the right lower lobe. Minimal left pleural effusion. Nonspecific mild edema in the aerated lungs. 4. IVC and hepatic vein dilatation. Fatty liver. Possible passive congestion of the liver. 5. Atherosclerotic disease includes coronary arteries abdominal aorta and its branches. 6. Gallstones without acute biliary abnormality. Abdomen Ultrasound 06/17/19 00:00 IMPRESSION: Technical limitations. Findings consistent with acute cholec ystitis. Main portal vein flow pattern consistent with portal hypertension. Thoracentesis Ultrasound 06/17/19 00:00 IMPRESSION: SUCCESSFUL THORACENTESIS USING ULTRASOUND GUIDANCE. Abdomen CT 06/18/19 00:00 IMPRESSION: Limited exam secondary to patient motion artifact. 1. Cholelithiasis without gallbladder dilation or definite wall thickening as seen on prior ultrasound. Nonspecific small volume perihepatic and pericholecystic fluid. Findings nonspecific for acute cholecystitis. HIDA scan could be considered for definitive characterization. 2. Small bilateral effusions, right greater left, with associated basilar atelectasis. 3. Indeterminate exophytic 17 mm left renal lesions. Nonemergent Follow-up ultrasound or multiphase CT could be considered for more definitive characterization. 4. Cardiomegaly with extensive coronary atherosclerosis. Guidance Fluoroscopy 06/21/19 00:00 IMPRESSION: SUCCESSFUL PLACEMENT OF A 5 FR DUAL LUMEN 34 CM PICC IN THE RIGHT BASILIC VEIN. Interventional Vascular Procedure 06/21/19 00:00 IMPRESSION: SUCCESSFUL PLACEMENT OF A 5 FR DUAL LUMEN 34 CM PICC IN THE RIGHT BASILIC VEIN. PICC Line Insertion 06/21/19 00:00 IMPRESSION: SUCCESSFUL PLACEMENT OF A 5 FR DUAL LUMEN 34 CM PICC IN THE RIGHT BASILIC VEIN. Chest X-Ray 06/21/19 08:00 IMPRESSION: Increasing bilateral basilar and left perihilar infiltrate. Increasing right pleural effusion. Findings most likely represent pneumonia. Assessment and Plan - Diagnosis (1) UTI (urinary tract infection) Qualifiers: Urinary tract infection type: catheter-associated UTI Indwelling urinary catheter type: indwelling urethral catheter Encounter type: initial encounter Qualified Code(s): T83.511A - Infection and inflammatory reaction due to indwelling urethral catheter, initial encounter; N39.0 - Urinary tract infection, site not specified Is this a current diagnosis for this admission?: Yes Plan: Possible contaminant from indwelling Castle; have replaced Castle. Blood cultures negative at 48 hours. Urine culture shows Pseudomonas and Enterococcus Correction; patient has not been receiving Ancef. He has been on Cefepime throughout Continue Cefepime x 10 days related to chronic indwelling catheter (DANII). EOT 06/24. Start Vancomycin for enterococcus. Continue x10 days. EOT 06/27. Now has PICC for consideration of D/C to home with vs SNF Discharge planning his consulted. (2) Pneumonia Qualifiers: Pneumonia type: due to unspecified organism Laterality: left Lung location: lower lobe of lung Qualified Code(s): J18.9 - Pneumonia, unspecified organism Is this a current diagnosis for this admission?: Yes Plan: Patient is admitted to the medical floor on continuous cardiac telemetry. Blood cultures are negative Sputum cultures are pending; not yet obtained. Unfortunately, chest x-ray shows worsening bilateral basilar and left perihilar infiltrate concerning for pneumonia. He is supported with supplemental oxygen; thus far maintaining saturations on room air. Continue IV vancomycin and cefepime. Consider addition of macrolide. Scheduled and as needed nebulizer treatments. Mucinex twice daily Robitussin as needed Encouraged pulmonary toilet. Will try chest physiotherapy as the patient is unable to participate and flutter valve/incentive spirometer (3) COPD exacerbation Is this a current diagnosis for this admission?: Yes Plan: Secondary to PNA and pleural effusion Will provide supplemental oxygen as needed to maintain saturations greater than 89%. Continue scheduled and as needed nebulizer treatments. Transition to PO Prednisone Mucinex twice daily. Robitussin as needed. Pulmonary toilet is encouraged with incentive spirometer, flutter valve, and early ambulation. Chest physiotherapy (4) Anemia Qualifiers: Anemia type: unspecified type Qualified Code(s): D64.9 - Anemia, unspecified Is this a current diagnosis for this admission?: Yes Plan: Hgb 10.6-> 11.0-> 10.4-> 10.7-> 11.1-> 12.5 Anemia panel is unremarkable. No evidence of bleeding. Continue on multivitamin. Monitor CBCs. (5) Diabetes Qualifiers: Diabetes mellitus type: type 2 Is this a current diagnosis for this admission?: Yes Plan: A1c 6.6%. Diet controlled. Patient is placed on a consistent carb diet. Registered dietitian clinical nurse educator consulted. (6) Sinusitis Qualifiers: Sinusitis location: frontal Chronicity: subacute Qualified Code(s): J01.10 - Acute frontal sinusitis, unspecified Is this a current diagnosis for this admission?: Yes Plan: Flonase (7) Thrombocytopenia Is this a current diagnosis for this admission?: Yes Plan: Improved. Unclear chronicity, follow-up CBC Arixtra for DVT prophylaxis (8) Pleural effusion Is this a current diagnosis for this admission?: Yes Plan: CTA noted significant right-sided pleural effusion with associated partial right lung collapse. Likely multifactorial secondary to underlying liver disease and CHF. No obvious pneumonia, proBNP is 600, LFTs were normal. Now s/p thoracentesis w/ 1L fluid removed. Pleural effusion cell counts suggest transudative. Cytology is negative. Repeat CXR shows worsening effusion. Start Furosemide 40 mg daily and Spironolactone 100 mg daily. RUQ U/S suggested cholelithiasis with acute cholecystitis. Also notable for portal hypertension. Follow-up CT with contrast of the abdomen suggested cholelithiasis with no overt cholecystitis. Echocardiograph shows LVEF 50% with mild to moderate diastolic dysfunction. (9) Cholelithiasis Qualifiers: Cholelithiasis location: gallbladder Cholecystitis presence: without cholecystitis Biliary obstruction: without biliary obstruction Qualified Code(s): K80.20 - Calculus of gallbladder without cholecystitis without obstruction Is this a current diagnosis for this admission?: Yes Plan: RUQ U/S suggested cholelithiasis with acute cholecystitis. Follow-up CT with contrast of the abdomen suggested cholelithiasis with no overt cholecystitis. Patient is afebrile, with normal WBCs, and asymptomatic at this time. Discussed with Dr. Mcallister; no surgical interventions recommended at this time. (10) CHF (congestive heart failure) Qualifiers: Heart failure type: diastolic Heart failure chronicity: chronic Qualified Code(s): I50.32 - Chronic diastolic (congestive) heart failure Is this a current diagnosis for this admission?: Yes Plan: Echocardiograph shows LVEF 50% with mild to moderate diastolic dysfunction. Not in acute exacerbation at this time. Continue cardiac diet. Fluid restricted to 2 L daily. Furosemide and spironolactone. We will start skis me low-dose low-dose lisinopril and metoprolol. Daily weights, strict I&Os - Plan Summary Summary: Reviewed the patient's clinical course, assessment, and work-up thus far with Dr. Perea. Antibiotic adjustments made per his recommendations. Now with worsening PNA and pleural effusion. - Time Time Spent with patient: 35 or more minutes Medications reviewed and adjusted accordingly: Yes Anticipated discharge: SNF Within: within 72 hours
[2019-06-21] MEDS: SIMVASTATIN 10 MG TABLET PO SCH (23:18)
[2019-06-22] MEDS: IPRATROPIUM/ALBUTEROL 0.5-2.5 MG/3 ML AMPUL NEB SCH ×3 (00:59→16:13)
[2019-06-22] MEDS: VANCOMYCIN HCL 750 MG in DEXTROSE 5%-WATER 250 ML IV SCH ×2 (06:05→17:25)
[2019-06-22] MEDS: ACETAMINOPHEN 325 MG TABLET PO SCH ×3 (06:06→17:19)
[2019-06-22 06:59] LABS: ALBUMIN 2.7 g/dL (3.5-5.0); ALKALINE PHOSPHATASE 94 U/L (38-126); ANION GAP 5 (5-19); ASPARTATE AMINO TRANSFERASE 43 U/L (17-59); BILIRUBIN,DIRECT 0.3 mg/dL (0.0-0.4); BILIRUBIN,TOTAL 0.8 mg/dL (0.2-1.3); BLOOD UREA NITROGEN 37 mg/dL (7-20); CARBON DIOXIDE 33 mmol/L (22-30); CHLORIDE 95 mmol/L (98-107); GLUCOSE 171 mg/dL (75-110); HEMATOCRIT 38.5 % (37.9-51.0); HEMOGLOBIN 12.7 g/dL (13.5-17.0); MEAN CORPUSCULAR HEMOGLOBIN 28.4 pg (27.0-33.4); MEAN CORPUSCULAR HGB CONC 33.1 g/dL (32.0-36.0); MEAN CORPUSCULAR VOLUME 86 fl (80-97); POTASSIUM 3.3 mmol/L (3.6-5.0); RED BLOOD COUNT 4.49 10^6/uL (4.35-5.55); RED CELL DISTRIBUTION WIDTH 18.4 % (11.5-14.0); TOTAL PROTEIN 6.3 g/dL (6.3-8.2); WHITE BLOOD COUNT 8.1 10^3/uL (4.0-10.5)
[2019-06-22 08:09] LABS: PLATELET COUNT 90 10^3/uL (150-450)
[2019-06-22 08:12] LABS: ABSOLUTE LYMPHOCYTES# (MANUAL) 0.4 10^3/uL (0.5-4.7); ABSOLUTE MONOCYTES # (MANUAL) 0.3 10^3/uL (0.1-1.4); ANISOCYTOSIS 1+; BAND NEUTROPHILS % (MANUAL) 1 % (3-5); BASOPHILS % (MANUAL) 0 % (0-2); EOSINOPHILS % (MANUAL) 0 % (0-6); LYMPHOCYTES % (MANUAL) 5 % (13-45); MONOCYTES % (MANUAL) 4 % (3-13); OVALOCYTES SLIGHT; PLATELET COMMENT DECREASED; POLYCHROMASIA SLIGHT; SEGMENTED NEUTROPHILS % (MAN) 90 % (42-78); TEAR DROP CELLS SLIGHT; TOTAL CELLS COUNTED 100
[2019-06-22] MEDS: METOPROLOL SUCCINATE 25 MG TAB.SR.24H PO SCH (09:56)
[2019-06-22] MEDS: DOCUSATE SODIUM 100 MG CAPSULE PO SCH ×2 (09:56→17:20)
[2019-06-22] MEDS: CEFEPIME 1 GM/D5W RTU 1 GM/50 ML RTUPB IV SCH ×2 (09:56→22:19)
[2019-06-22] MEDS: MAGNESIUM HYDROXIDE SUSP 30 ML UDCUP PO SCH (09:56)
[2019-06-22] MEDS: FLUTICASONE NASAL SPRAY 50 MCG/SPRY 120 SPRAY/16 GM NASL SCH (09:56)
[2019-06-22] MEDS: FOLIC ACID 1 MG TABLET PO SCH (09:57)
[2019-06-22] MEDS: GUAIFENESIN 600 MG TABLET.SA PO SCH ×2 (09:57→22:19)
[2019-06-22] MEDS: LISINOPRIL 5 MG TABLET PO SCH (09:57)
[2019-06-22] MEDS: MULTIVITAMIN TABLET PO SCH (09:57)
[2019-06-22] MEDS: SPIRONOLACTONE 25 MG TABLET PO SCH (09:57)
[2019-06-22] MEDS: PREDNISONE 20 MG TABLET PO SCH (09:57)
[2019-06-22] MEDS: FUROSEMIDE 40 MG TABLET PO SCH (09:57)
[2019-06-22] MEDS: FONDAPARINUX SODIUM INJ 2.5 MG/0.5 ML DISP.SYRIN SUBCUT SCH (10:09)
--- NOTE | 2019-06-22 17:20 | PDOC PROGRESS REPORT ---
Subjective Progress Note for:: 06/22/19 Subjective:: Patient breathing apparently better Reason For Visit: PNEUMONIA Physical Exam Vital Signs: Temp Pulse Resp BP Pulse Ox 97.5 F 65 16 101/40 L 95 06/22/19 13:06 06/22/19 16:13 06/22/19 16:13 06/22/19 13:06 06/22/19 16:13 Intake & Output 06/21/19 06/22/19 06/23/19 06:59 06:59 06:59 Intake Total 1200 940 420 Output Total 2075 800 700 Balance -875 140 -280 Weight 89.1 kg 92 kg General appearance: PRESENT: no acute distress, well-developed, well-nourished Head exam: PRESENT: atraumatic, normocephalic Eye exam: ABSENT: scleral icterus Mouth exam: PRESENT: tongue midline Neck exam: ABSENT: carotid bruit, JVD, lymphadenopathy, thyromegaly Respiratory exam: PRESENT: decreased breath sounds, rhonchi, tachypnea, unlabored. ABSENT: rales, wheezes Cardiovascular exam: PRESENT: RRR, +S1, +S2. ABSENT: diastolic murmur, rubs, systolic murmur Pulses: PRESENT: normal dorsalis pedis pul Vascular exam: PRESENT: normal capillary refill GI/Abdominal exam: PRESENT: normal bowel sounds, soft. ABSENT: distended, guarding, mass, organolmegaly, rebound, tenderness Rectal exam: PRESENT: deferred Extremities exam: PRESENT: full ROM. ABSENT: calf tenderness, clubbing, pedal edema Neurological exam: PRESENT: alert, awake. ABSENT: motor sensory deficit Psychiatric exam: PRESENT: normal mood. ABSENT: homicidal ideation, suicidal ideation Skin exam: PRESENT: dry, warm. ABSENT: cyanosis, rash Results Laboratory Results: 06/22/19 06:17 06/22/19 06:17 06/22/19 06/22/19 06:17 06:17 WBC 8.1 RBC 4.49 Hgb 12.7 L Hct 38.5 MCV 86 MCH 28.4 MCHC 33.1 RDW 18.4 H Plt Count 90 L Seg Neutrophils % Not Reportable Sodium 132.8 L Potassium 3.3 L Chloride 95 L Carbon Dioxide 33 H Anion Gap 5 BUN 37 H Creatinine 0.82 Est GFR ( Amer) > 60 Glucose 171 H Calcium 9.0 Total Bilirubin 0.8 AST 43 Alkaline Phosphatase 94 Total Protein 6.3 Albumin 2.7 L 06/14/19 13:45 Troponin I 0.090 NT-Pro-B Natriuret Pep 691 H Impressions: Chest/Abdomen CTA 06/14/19 19:39 IMPRESSION: 1. No evidence for pulmonary embolus. Mildly enlarged 32 mm main pulmonary artery. 2. Calcifications aortic and mitral annulus. Cardiomegaly mainly right and left atria. 3. Significant right pleural effusion. May be related to cardiac or to liver disease. Other causes not excluded. Associated with collapse of the right lower lobe. Minimal left pleural effusion. Nonspecific mild edema in the aerated lungs. 4. IVC and hepatic vein dilatation. Fatty liver. Possible passive congestion of the liver. 5. Atherosclerotic disease includes coronary arteries abdominal aorta and its branches. 6. Gallstones without acute biliary abnormality. Abdomen Ultrasound 06/17/19 00:00 IMPRESSION: Technical limitations. Findings consistent with acute cholecyst itis. Main portal vein flow pattern consistent with portal hypertension. Thoracentesis Ultrasound 06/17/19 00:00 IMPRESSION: SUCCESSFUL THORACENTESIS USING ULTRASOUND GUIDANCE. Abdomen CT 06/18/19 00:00 IMPRESSION: Limited exam secondary to patient motion artifact. 1. Cholelithiasis without gallbladder dilation or definite wall thickening as seen on prior ultrasound. Nonspecific small volume perihepatic and pericholecystic fluid. Findings nonspecific for acute cholecystitis. HIDA scan could be considered for definitive characterization. 2. Small bilateral effusions, right greater left, with associated basilar atelectasis. 3. Indeterminate exophytic 17 mm left renal lesions. Nonemergent Follow-up ultrasound or multiphase CT could be considered for more definitive characterization. 4. Cardiomegaly with extensive coronary atherosclerosis. Guidance Fluoroscopy 06/21/19 00:00 IMPRESSION: SUCCESSFUL PLACEMENT OF A 5 FR DUAL LUMEN 34 CM PICC IN THE RIGHT BASILIC VEIN. Interventional Vascular Procedure 06/21/19 00:00 IMPRESSION: SUCCESSFUL PLACEMENT OF A 5 FR DUAL LUMEN 34 CM PICC IN THE RIGHT BASILIC VEIN. PICC Line Insertion 06/21/19 00:00 IMPRESSION: SUCCESSFUL PLACEMENT OF A 5 FR DUAL LUMEN 34 CM PICC IN THE RIGHT BASILIC VEIN. Chest X-Ray 06/21/19 08:00 IMPRESSION: Increasing bilateral basilar and left perihilar infiltrate. Increasing right pleural effusion. Findings most likely represent pneumonia. 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 Is this a current diagnosis for this admission?: Yes (3) COPD exacerbation Is this a current diagnosis for this admission?: Yes (4) Cholelithiasis Qualifiers: Cholelithiasis location: gallbladder Cholecystitis presence: without c holecystitis Biliary obstruction: without biliary obstruction Qualified Code(s): K80.20 - Calculus of gallbladder without cholecystitis without ob struction Is this a current diagnosis for this admission?: Yes (5) Diabetes Qualifiers: Diabetes mellitus type: type 2 Is this a current diagnosis for this admission?: Yes (6) Pleural effusion Is this a current diagnosis for this admission?: Yes (7) Pneumonia Qualifiers: Pneumonia type: due to unspecified organism Laterality: left Lung location: lower lobe of lung Qualified Code(s): J18.9 - Pneumonia, unspecified organism Is this a current diagnosis for this admission?: Yes (8) Sinusitis Qualifiers: Sinusitis location: frontal Chronicity: subacute Qualified Code(s): J01.10 - Acute frontal sinusitis, unspecified Is this a current diagnosis for this admission?: Yes (9) Thrombocytopenia Is this a current diagnosis for this admission?: Yes (10) UTI (urinary tract infection) Qualifiers: Urinary tract infection type: catheter-associated UTI Indwelling urinary catheter type: indwelling urethral catheter Encounter type: initial encounter Qualified Code(s): T83.511A - Infection and inflammatory reaction due to indwelling urethral catheter, initial encounter; N39.0 - Urinary tract infection, site not specified Is this a current diagnosis for this admission?: Yes - Plan Summary Summary: UTI with cultures yielding Pseudomonas and enterococcus. He has been on cefepime. Patient Castle catheter was changed. He also has a PICC line. The plan is to continue cefepime for 10 days to June 24 due to catheter associated UTI and vancomycin for 10 days through June 27. Pneumonia, left lower lung. Chest x-ray shows worsening bilateral and left perihilar infiltrate. Above antibiotics will cover this as well COPD exacerbation continue with prednisone, may see Angel. He is also on oxygen as tolerated Anemia of chronic disease stable Diabetes mellitus with hemoglobin A1c of 6.6% continue diet control Sinusitis currently on Flonase Thrombocytopenia chronic Pleural effusion, with CT showing right-sided pleural effusion and associated partial right lung collapse. He is status post thoracentesis 1 L of fluid remov ed. Repeat chest x-ray shows worsening effusion. Patient may need repeat thoracentesis if clinically indicated He was started on Lasix 40 mg and spironolactone 100 mg daily Cholelithiasis although ultrasound is suggested possible acute: Cystitis clinical exam as well as follow-up CT showed no overt cholecystitis. General surgery indicated no surgical intervention needed Chronic CHF, diastolic apparently not in acute exacerbation. Echocardiogram reveals LVEF of 50% with mild to moderate diastolic dysfunction patient is on fluid restriction of 2 L, Lasix and spironolactone as well as lisinopril and metoprolol Hypokalemia and hyponatremia likely secondary to diuretics. Will replace pot assium - Inpatient Certification Based on my medical assessment, after consideration of the patient's comorbidities, presenting symptoms, or acuity I expect that the services needed warrant INPATIENT care.: Yes
[2019-06-22] MEDS ORDERED: POTASSIUM CHLORIDE 10 MEQ TABLET.ER PO ONE (18:00)
[2019-06-22] MEDS: SIMVASTATIN 10 MG TABLET PO SCH (22:19)
[2019-06-23] MEDS: ACETAMINOPHEN 325 MG TABLET PO SCH ×6 (00:17→23:19)
[2019-06-23] MEDS: IPRATROPIUM/ALBUTEROL 0.5-2.5 MG/3 ML AMPUL NEB SCH ×4 (00:31→23:57)
[2019-06-23] MEDS: VANCOMYCIN HCL 750 MG in DEXTROSE 5%-WATER 250 ML IV SCH ×2 (05:28→17:41)
[2019-06-23] MEDS: PREDNISONE 20 MG TABLET PO SCH (10:43)
[2019-06-23] MEDS: SPIRONOLACTONE 25 MG TABLET PO SCH (10:43)
[2019-06-23] MEDS: FUROSEMIDE 40 MG TABLET PO SCH (10:44)
[2019-06-23] MEDS: LISINOPRIL 5 MG TABLET PO SCH (10:44)
[2019-06-23] MEDS: MULTIVITAMIN TABLET PO SCH (10:44)
[2019-06-23] MEDS: FONDAPARINUX SODIUM INJ 2.5 MG/0.5 ML DISP.SYRIN SUBCUT SCH (10:44)
[2019-06-23] MEDS: GUAIFENESIN 600 MG TABLET.SA PO SCH ×2 (10:44→23:19)
[2019-06-23] MEDS: MAGNESIUM HYDROXIDE SUSP 30 ML UDCUP PO SCH (10:44)
[2019-06-23] MEDS: DOCUSATE SODIUM 100 MG CAPSULE PO SCH ×2 (10:44→17:42)
[2019-06-23] MEDS: METOPROLOL SUCCINATE 25 MG TAB.SR.24H PO SCH (10:44)
[2019-06-23] MEDS: FOLIC ACID 1 MG TABLET PO SCH (10:44)
[2019-06-23] MEDS: FLUTICASONE NASAL SPRAY 50 MCG/SPRY 120 SPRAY/16 GM NASL SCH (10:45)
--- NOTE | 2019-06-23 16:24 | PDOC PROGRESS REPORT ---
Subjective Progress Note for:: 06/23/19 Subjective:: Patient seen along with his daughter. He is taking some steps with physical therapy while really pivoting around his bed. He does seem to be a little stronger today according to reports. I did discuss with the daughter and answered all her questions appropriately to her satisfaction. Her main concern appears to be discharge planning. She feels patient is too weak to come home at this time although they have 24-hour care as well as home health, PT as well as occupational therapy already set up. I have advised her that patient may need to spend some time in the rehab facility if the unable to take care of him at home at this time Reason For Visit: PNEUMONIA Physical Exam Vital Signs: Temp Pulse Resp BP Pulse Ox 97.4 F 64 16 90/36 L 95 06/23/19 11:49 06/23/19 15:52 06/23/19 15:52 06/23/19 11:49 06/23/19 15:52 Intake & Output 06/22/19 06/23/19 06/24/19 06:59 06:59 06:59 Intake Total 940 920 250 Output Total 800 2250 500 Balance 140 -1330 -250 Weight 92 kg 88.4 kg General appearance: PRESENT: no acute distress, hard of hearing, thin, other - elderly Head exam: PRESENT: atraumatic Eye exam: ABSENT: scleral icterus Mouth exam: PRESENT: tongue midline Neck exam: ABSENT: carotid bruit, JVD, lymphadenopathy, thyromegaly Respiratory exam: PRESENT: crackles. ABSENT: rales, rhonchi, wheezes Cardiovascular exam: PRESENT: RRR, +S1, +S2. ABSENT: diastolic murmur, rubs, systolic murmur GI/Abdominal exam: PRESENT: normal bowel sounds, soft. ABSENT: distended, guarding, mass, organolmegaly, rebound, tenderness Rectal exam: PRESENT: deferred Extremities exam: PRESENT: full ROM. ABSENT: calf tenderness, clubbing, pedal edema Neurological exam: PRESENT: alert, awake, oriented to place, oriented to time, oriented to situation. ABSENT: motor sensory deficit Psychiatric exam: PRESENT: appropriate affect, normal mood. ABSENT: homicidal ideation, suicidal ideation Skin exam: PRESENT: dry, intact, warm. ABSENT: cyanosis, rash Results Laboratory Results: 06/22/19 06:17 06/22/19 06:17 06/14/19 13:45 Troponin I 0.090 NT-Pro-B Natriuret Pep 691 H Impressions: Chest/Abdomen CTA 06/14/19 19:39 IMPRESSION: 1. No evidence for pulmonary embolus. Mildly enlarged 32 mm main pulmonary artery. 2. Calcifications aortic and mitral annulus. Cardiomegaly mainly right and left atria. 3. Significant right pleural effusion. May be related to cardiac or to liver disease. Other causes not excluded. Associated with collapse of the right lower lobe. Minimal left pleural effusion. Nonspecific mild edema in the aerated lungs. 4. IVC and hepatic vein dilatation. Fatty liver. Possible passive congestion of the liver. 5. Atherosclerotic disease includes coronary arteries abdominal aorta and its branches. 6. Gallstones without acute biliary abnormality. Abdomen Ultrasound 06/17/19 00:00 IMPRESSION: Technical limitations. Findings consistent with acute cholecystitis. Main portal vein flow pattern consistent with portal hypertension. Thoracentesis Ultrasound 06/17/19 00:00 IMPRESSION: SUCCESSFUL THORACENTESIS USING ULTRASOUND GUIDANCE. Abdomen CT 06/18/19 00:00 IMPRESSION: Limited exam secondary to patient motion artifact. 1. Cholelithiasis without gallbladder dilation or definite wall thickening as seen on prior ultrasound. Nonspecific small volume perihepatic and pericholecystic fluid. Findings nonspecific for acute cholecystitis. HIDA scan could be considered for definitive characterization. 2. Small bilateral effusions, right greater left, with associated basilar atelectasis. 3. Indeterminate exophytic 17 mm left renal lesions. Nonemergent Follow-up ultrasound or multiphase CT could be considered for more definitive characterization. 4. Cardiomegaly with extensive coronary atherosclerosis. Guidance Fluoroscopy 06/21/19 00:00 IMPRESSION: SUCCESSFUL PLACEMENT OF A 5 FR DUAL LUMEN 34 CM PICC IN THE RIGHT BASILIC VEIN. Interventional Vascular Procedure 06/21/19 00:00 IMPRESSION: SUCCESSFUL PLACEMENT OF A 5 FR DUAL LUMEN 34 CM PICC IN THE RIGHT BASILIC VEIN. PICC Line Insertion 06/21/19 00:00 IMPRESSION: SUCCESSFUL PLACEMENT OF A 5 FR DUAL LUMEN 34 CM PICC IN THE RIGHT BASILIC VEIN. Chest X-Ray 06/21/19 08:00 IMPRESSION: Increasing bilateral basilar and left perihilar infiltrate. Increasing right pleural effusion. Findings most likely represent pneumonia. 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 Is this a current diagnosis for this admission?: Yes (3) COPD exacerbation Is this a current diagnosis for this admission?: Yes (4) Cholelithiasis Qualifiers: Cholelithiasis location: gallbladder Cholecystitis presence: without cholecystitis Biliary obstruction: without biliary obstruction Qualified Code(s): K80.20 - Calculus of gallbladder without cholecystitis without obstruction Is this a current diagnosis for this admission?: Yes (5) Diabetes Qualifiers: Diabetes mellitus type: type 2 Is this a current diagnosis for this admission?: Yes (6) Pleural effusion Is this a current diagnosis for this admission?: Yes (7) Pneumonia Qualifiers: Pneumonia type: due to unspecified organism Laterality: left Lung location: lower lobe of lung Qualified Code(s): J18.9 - Pneumonia, unspecified organism Is this a current diagnosis for this admission?: Yes (8) Sinusitis Qualifiers: Sinusitis location: frontal Chronicity: subacute Qualified Code(s): J01.10 - Acute frontal sinusitis, unspecified Is this a current diagnosis for this admission?: Yes (9) Thrombocytopenia Is this a current diagnosis for this admission?: Yes (10) UTI (urinary tract infection) Qualifiers: Urinary tract infection type: catheter-associated UTI Indwelling urinary catheter type: indwelling urethral catheter Encounter type: initial encounter Qualified Code(s): T83.511A - Infection and inflammatory reaction due to indwelling urethral catheter, initial encounter; N39.0 - Urinary tract infection, site not specified Is this a current diagnosis for this admission?: Yes - Plan Summary Summary: UTI with cultures yielding Pseudomonas and enterococcus. He has been on cefepime. Patient Castle catheter was changed. He also has a PICC line. The plan is to continue cefepime for 10 days to June 24 due to catheter associated UTI and vancomycin for 10 days through June 27. Pneumonia, left lower lung. Chest x-ray shows worsening bilateral and left per ihilar infiltrate. Above antibiotics will cover this as well COPD exacerbation continue with prednisone, may see Robitussin. He is also on oxygen as tolerated Anemia of chronic disease stable Diabetes mellitus with hemoglobin A1c of 6.6% continue diet control Sinusitis currently on Flonase Thrombocytopenia chronic Pleural effusion, with CT showing right-sided pleural effusion and associated partial right lung collapse. He is status post thoracentesis 1 L of fluid removed. Repeat chest x-ray shows worsening effusion. Patient may need repeat thoracentesis if clinically indicated He was started on Lasix 40 mg and spironolactone 100 mg daily Cholelithiasis although ultrasound is suggested possible acute: Cystitis clinical exam as well as follow-up CT showed no overt cholecystitis. General surgery indicated no surgical intervention needed Chronic CHF, diastolic apparently not in acute exacerbation. Echocardiogram reveals LVEF of 50% with mild to moderate diastolic dysfunction patient is on fluid restriction of 2 L, Lasix and spironolactone as well as lisinopril and metoprolol Hypokalemia and hyponatremia likely secondary to diuretics. Will replace potassium 06/22 Continue with IV abx, supportive care, DC planning - Time Anticipated discharge: SNF Within: when bed available
[2019-06-23] MEDS: SIMVASTATIN 10 MG TABLET PO SCH (23:19)
[2019-06-24] MEDS: VANCOMYCIN HCL 750 MG in DEXTROSE 5%-WATER 250 ML IV SCH ×2 (05:49→17:37)
[2019-06-24] MEDS: ACETAMINOPHEN 325 MG TABLET PO SCH ×4 (05:52→23:05)
[2019-06-24] MEDS: IPRATROPIUM/ALBUTEROL 0.5-2.5 MG/3 ML AMPUL NEB SCH ×2 (08:58→16:29)
[2019-06-24] MEDS: FOLIC ACID 1 MG TABLET PO SCH (10:22)
[2019-06-24] MEDS: MULTIVITAMIN TABLET PO SCH (10:22)
[2019-06-24] MEDS: DOCUSATE SODIUM 100 MG CAPSULE PO SCH ×2 (10:22→17:36)
[2019-06-24] MEDS: MAGNESIUM HYDROXIDE SUSP 30 ML UDCUP PO SCH (10:22)
[2019-06-24] MEDS: LISINOPRIL 5 MG TABLET PO SCH (10:22)
[2019-06-24] MEDS: SPIRONOLACTONE 25 MG TABLET PO SCH (10:22)
[2019-06-24] MEDS: METOPROLOL SUCCINATE 25 MG TAB.SR.24H PO SCH (10:22)
[2019-06-24] MEDS: PREDNISONE 20 MG TABLET PO SCH (10:23)
[2019-06-24] MEDS: FONDAPARINUX SODIUM INJ 2.5 MG/0.5 ML DISP.SYRIN SUBCUT SCH (10:23)
[2019-06-24] MEDS: GUAIFENESIN 600 MG TABLET.SA PO SCH ×2 (10:23→22:19)
[2019-06-24] MEDS: FLUTICASONE NASAL SPRAY 50 MCG/SPRY 120 SPRAY/16 GM NASL SCH (10:23)
[2019-06-24] MEDS: FUROSEMIDE 40 MG TABLET PO SCH (10:23)
--- NOTE | 2019-06-24 12:23 | PDOC PROGRESS REPORT ---
Subjective Progress Note for:: 06/24/19 Subjective:: Patient seen along with his daughter. He is taking some steps with physical therapy while really pivoting around his bed. He does seem to be a little stronger today according to reports. I did discuss with the daughter and answered all her questions appropriately to her satisfaction. Her main concern appears to be discharge planning. She feels patient is too weak to come home at this time although they have 24-hour care as well as home health, PT as well as occupational therapy already set up. I have advised her that patient may need to spend some time in the rehab facility if the unable to take care of him at home at this time 06/23 new complaints. No complaints of chest pain or difficulty breathing. Reason For Visit: PNEUMONIA Physical Exam Vital Signs: Temp Pulse Resp BP Pulse Ox 97.3 F 74 16 112/51 L 96 06/24/19 07:53 06/24/19 08:59 06/24/19 08:59 06/24/19 07:53 06/24/19 08:59 Intake & Output 06/23/19 06/24/19 06/25/19 06:59 06:59 06:59 Intake Total 920 980 250 Output Total 2250 1600 Balance -1330 -620 250 Weight 88.4 kg 79.3 kg General appearance: PRESENT: no acute distress Head exam: PRESENT: atraumatic Neck exam: ABSENT: JVD, lymphadenopathy Respiratory exam: PRESENT: clear to auscultation chase, decreased breath sounds, unlabored. ABSENT: wheezes GI/Abdominal exam: PRESENT: normal bowel sounds Rectal exam: PRESENT: deferred Neurological exam: PRESENT: alert, awake, oriented to situation Results Laboratory Results: 06/22/19 06:17 06/22/19 06:17 06/14/19 13:45 Troponin I 0.090 NT-Pro-B Natriuret Pep 691 H Impressions: Chest/Abdomen CTA 06/14/19 19:39 IMPRESSION: 1. No evidence for pulmonary embolus. Mildly enlarged 32 mm main pulmonary artery. 2. Calcifications aortic and mitral annulus. Cardiomegaly mainly right and left atria. 3. Significant right pleural effusion. May be related to cardiac or to liver disease. Other causes not excluded. Associated with collapse of the right lower lobe. Minimal left pleural effusion. Nonspecific mild edema in the aerated lungs. 4. IVC and hepatic vein dilatation. Fatty liver. Possible passive congestion of the liver. 5. Atherosclerotic disease includes coronary arteries abdominal aorta and its branches. 6. Gallstones without acute biliary abnormality. Abdomen Ultrasound 06/17/19 00:00 IMPRESSION: Technical limitations. Findings consistent with acute cholecystitis. Main portal vein flow pattern consistent with portal hypertension. Thoracentesis Ultrasound 06/17/19 00:00 IMPRESSION: SUCCESSFUL THORACENTESIS USING ULTRASOUND GUIDANCE. Abdomen CT 06/18/19 00:00 IMPRESSION: Limited exam secondary to patient motion artifact. 1. Cholelithiasis without gallbladder dilation or definite wall thickening as seen on prior ultrasound. Nonspecific small volume perihepatic and pericholecystic fluid. Findings nonspecific for acute cholecystitis. HIDA scan could be considered for definitive characterization. 2. Small bilateral effusions, right greater left, with associated basilar atelectasis. 3. Indeterminate exophytic 17 mm left renal lesions. Nonemergent Follow-up ultrasound or multiphase CT could be considered for more definitive characterization. 4. Cardiomegaly with extensive coronary atherosclerosis. Guidance Fluoroscopy 06/21/19 00:00 IMPRESSION: SUCCESSFUL PLACEMENT OF A 5 FR DUAL LUMEN 34 CM PICC IN THE RIGHT BASILIC VEIN. Interventional Vascular Procedure 06/21/19 00:00 IMPRESSION: SUCCESSFUL PLACEMENT OF A 5 FR DUAL LUMEN 34 CM PICC IN THE RIGHT BASILIC VEIN. PICC Line Insertion 06/21/19 00:00 IMPRESSION: SUCCESSFUL PLACEMENT OF A 5 FR DUAL LUMEN 34 CM PICC IN THE RIGHT BASILIC VEIN. Chest X-Ray 06/21/19 08:00 IMPRESSION: Increasing bilateral basilar and left perihilar infiltrate. Increasing right pleural effusion. Findings most likely represent pneumonia. Assessment and Plan - Diagnosis (1) Anemia Qualifiers: Anemia type: unspecified type Qualified Code(s): D64.9 - Anemia, unspecified Is this a current diagnosis for this admission?: Yes Plan: Anemia panel is unremarkable. No evidence of bleeding. Continue on multivitamin. Monitor CBCs. (2) CHF (congestive heart failure) Qualifiers: Heart failure type: diastolic Heart failure chronicity: chronic Qualified Code(s): I50.32 - Chronic diastolic (congestive) heart failure Is this a current diagnosis for this admission?: Yes Plan: Echocardiograph shows LVEF 50% with mild to moderate diastolic dysfunction. Not in acute exacerbation at this time. Continue cardiac diet. Fluid restricted to 2 L daily. Furosemide and spironolactone. (3) COPD exacerbation Is this a current diagnosis for this admission?: Yes Plan: Will taper Prednisone (4) Cholelithiasis Qualifiers: Cholelithiasis location: gallbladder Cholecystitis presence: without cholecystitis Biliary obstruction: without biliary obstruction Qualified Code(s): K80.20 - Calculus of gallbladder without cholecystitis without obstruction Is this a current diagnosis for this admission?: Yes Plan: RUQ U/S suggested cholelithiasis with acute cholecystitis. Follow-up CT with contrast of the abdomen suggested cholelithiasis with no overt cholecystitis. Patient is afebrile, with normal WBCs, and asymptomatic at this time. no surgical interventions recommended at this time. (5) Diabetes Qualifiers: Diabetes mellitus type: type 2 Is this a current diagnosis for this admission?: Yes (6) Pleural effusion Is this a current diagnosis for this admission?: Yes Plan: CTA noted significant right-sided pleural effusion with associated partial right lung collapse. Likely multifactorial secondary to underlying liver disease and CHF. No obvious pneumonia, proBNP is 600, LFTs were normal. Now s/p thoracentesis w/ 1L fluid removed. Pleural effusion cell counts suggest transudative. Cytology is negative. Repeat CXR shows worsening effusion. Start Furosemide 40 mg daily and Spironolactone 100 mg daily. RUQ U/S suggested cholelithiasis with acute cholecystitis. Also notable for portal hypertension. Follow-up CT with contrast of the abdomen suggested cholelithiasis with no overt cholecystitis. Echocardiograph shows LVEF 50% with mild to moderate diastolic dysfunction. (7) Pneumonia Qualifiers: Pneumonia type: due to unspecified organism Laterality: left Lung location: lower lobe of lung Qualified Code(s): J18.9 - Pneumonia, unspecified organism Is this a current diagnosis for this admission?: Yes Plan: Patient is admitted to the medical floor on continuous cardiac telemetry. Blood cultures are negative Sputum cultures are pending; not yet obtained. Unfortunately, chest x-ray shows worsening bilateral basilar and left perihilar infiltrate concerning for pneumonia. He is supported with supplemental oxygen; thus far maintaining saturations on room air. Continue IV vancomycin and cefepime. Consider addition of macrolide. Scheduled and as needed nebulizer treatments. Mucinex twice daily Robitussin as needed Encouraged pulmonary toilet. Will try chest physiotherapy as the patient is unable to participate and flutter valve/incentive spirometer (8) Sinusitis Qualifiers: Sinusitis location: frontal Chronicity: subacute Qualified Code(s): J01.10 - Acute frontal sinusitis, unspecified Is this a current diagnosis for this admission?: Yes (9) Thrombocytopenia Is this a current diagnosis for this admission?: Yes (10) UTI (urinary tract infection) Qualifiers: Urinary tract infection type: catheter-associated UTI Indwelling urinary catheter type: indwelling urethral catheter Encounter type: subsequent encounter Qualified Code(s): T83.511D - Infection and inflammatory reaction due to indwelling urethral catheter, subsequent encounter; N39.0 - Urinary tract infection, site not specified Is this a current diagnosis for this admission?: Yes Plan: Possible contaminant from indwelling Castle; have replaced Castle. Blood cultures negative at 48 hours. Urine culture shows Pseudomonas and Enterococcus Correction; patient has not been receiving Ancef. He has been on Cefepime throughout Continue Cefepime x 10 days related to chronic indwelling catheter (DANII). EOT 06/24. Start Vancomycin for enterococcus. Continue x10 days. EOT 06/27. Now has PICC for consideration of D/C to home with HH vs SNF Discharge planning consulted. - Plan Summary Summary: UTI with cultures yielding Pseudomonas and enterococcus. He has been on cefepime. Patient Castle catheter was changed. He also has a PICC line. The p zion is to continue cefepime for 10 days to June 24 due to catheter associated UTI and vancomycin for 10 days through June 27. Pneumonia, left lower lung. Chest x-ray shows worsening bilateral and left perihilar infiltrate. Above antibiotics will cover this as well COPD exacerbation continue with prednisone, may see Rajnisin. He is also on oxygen as tolerated Anemia of chronic disease stable Diabetes mellitus with hemoglobin A1c of 6.6% continue diet control Sinusitis currently on Flonase Thrombocytopenia chronic Pleural effusion, with CT showing right-sided pleural effusion and associated partial right lung collapse. He is status post thoracentesis 1 L of fluid removed. Repeat chest x-ray shows worsening effusion. Patient may need repeat thoracentesis if clinically indicated He was started on Lasix 40 mg and spironolactone 100 mg daily Cholelithiasis although ultrasound is suggested possible acute: Cystitis clinical exam as well as follow-up CT showed no overt cholecystitis. General surgery indicated no surgical intervention needed Chronic CHF, diastolic apparently not in acute exacerbation. Echocardiogram reveals LVEF of 50% with mild to moderate diastolic dysfunction patient is on fluid restriction of 2 L, Lasix and spironolactone as well as lisinopril and m etoprolol Hypokalemia and hyponatremia likely secondary to diuretics. Will replace potassium 06/22 Continue with IV abx, supportive care, DC planning 06/23 No change in plans, Cefepime to be dc today - Inpatient Certification Based on my medical assessment, after consideration of the patient's comorbidities, presenting symptoms, or acuity I expect that the services needed warrant INPATIENT care.: Yes Medical Necessity: Need for IV Antibiotics
[2019-06-24] MEDS: SIMVASTATIN 10 MG TABLET PO SCH (22:19)
[2019-06-25] MEDS: IPRATROPIUM/ALBUTEROL 0.5-2.5 MG/3 ML AMPUL NEB SCH ×3 (00:32→16:17)
[2019-06-25] MEDS: NORMAL SALINE 10 ML SDV (AFTER EACH USE) IV PRN (04:01)
[2019-06-25 04:20] LABS: ABSOLUTE LYMPHOCYTES (AUTO) 0.5 10^3/uL (0.5-4.7); ABSOLUTE MONOCYTES (AUTO) 0.9 10^3/uL (0.1-1.4); ABSOLUTE NEUT (AUTO) 6.9 10^3/uL (1.7-8.2); BASOPHILS % (AUTO) 0.3 % (0-2); HEMATOCRIT 38.6 % (37.9-51.0); LYMPHOCYTES % (AUTO) 6.2 % (13-45); MEAN CORPUSCULAR HEMOGLOBIN 28.7 pg (27.0-33.4); MEAN CORPUSCULAR HGB CONC 33.6 g/dL (32.0-36.0); MEAN CORPUSCULAR VOLUME 85 fl (80-97); MONOCYTES % (AUTO) 10.5 % (3-13); PLATELET COUNT 111 10^3/uL (150-450); RED BLOOD COUNT 4.52 10^6/uL (4.35-5.55); RED CELL DISTRIBUTION WIDTH 18.4 % (11.5-14.0); TOTAL CELLS COUNTED % (AUTO) 100 %; WHITE BLOOD COUNT 8.3 10^3/uL (4.0-10.5)
[2019-06-25] MEDS: ACETAMINOPHEN 325 MG TABLET PO SCH ×4 (05:50→23:32)
[2019-06-25] MEDS: VANCOMYCIN HCL 750 MG in DEXTROSE 5%-WATER 250 ML IV SCH ×2 (05:50→17:44)
[2019-06-25 08:53] LABS: ANION GAP 6 (5-19); BLOOD UREA NITROGEN 24 mg/dL (7-20); CALCIUM 8.6 mg/dL (8.4-10.2); CARBON DIOXIDE 35 mmol/L (22-30); CHLORIDE 92 mmol/L (98-107); GLUCOSE 216 mg/dL (75-110); POTASSIUM 3.9 mmol/L (3.6-5.0)
[2019-06-25] MEDS: SPIRONOLACTONE 25 MG TABLET PO SCH (11:14)
[2019-06-25] MEDS: METOPROLOL SUCCINATE 25 MG TAB.SR.24H PO SCH (11:15)
[2019-06-25] MEDS: LISINOPRIL 5 MG TABLET PO SCH (11:15)
[2019-06-25] MEDS: DOCUSATE SODIUM 100 MG CAPSULE PO SCH ×2 (11:15→18:00)
[2019-06-25] MEDS: FUROSEMIDE 40 MG TABLET PO SCH (11:15)
[2019-06-25] MEDS: MULTIVITAMIN TABLET PO SCH (11:15)
[2019-06-25] MEDS: GUAIFENESIN 600 MG TABLET.SA PO SCH ×2 (11:16→21:37)
[2019-06-25] MEDS: NORMAL SALINE 10 ML SDV (SCHEDULED) IV SCH ×2 (11:16→21:36)
[2019-06-25] MEDS: MAGNESIUM HYDROXIDE SUSP 30 ML UDCUP PO SCH (11:16)
[2019-06-25] MEDS: PREDNISONE 20 MG TABLET PO SCH (11:17)
[2019-06-25] MEDS: FLUTICASONE NASAL SPRAY 50 MCG/SPRY 120 SPRAY/16 GM NASL SCH (11:18)
[2019-06-25] MEDS: FOLIC ACID 1 MG TABLET PO SCH (11:19)
[2019-06-25] MEDS: FONDAPARINUX SODIUM INJ 2.5 MG/0.5 ML DISP.SYRIN SUBCUT SCH (11:25)
[2019-06-25] MEDS: CEFEPIME 1 GM/D5W RTU 1 GM/50 ML RTUPB IV SCH ×2 (14:32→21:37)
--- NOTE | 2019-06-25 17:03 | PDOC PROGRESS REPORT ---
Subjective Progress Note for:: 06/25/19 Subjective:: Patient seen along with his daughter. He is taking some steps with physical therapy while really pivoting around his bed. He does seem to be a little stronger today according to reports. I did discuss with the daughter and answered all her questions appropriately to her satisfaction. Her main concern appears to be discharge planning. She feels patient is too weak to come home at this time although they have 24-hour care as well as home health, PT as well as occupational therapy already set up. I have advised her that patient may need to spend some time in the rehab facility if the unable to take care of him at home at this time 06/23 new complaints. No complaints of chest pain or difficulty breathing. 06/24 Patient was lethargic, barely arousable although reports he had woken up earlier before I saw him and he has had progressed. Daughter indicates that at home he does take a nap after breakfast Reason For Visit: PNEUMONIA Physical Exam Vital Signs: Temp Pulse Resp BP Pulse Ox 97.3 F 71 20 110/50 L 96 06/25/19 07:56 06/25/19 16:17 06/25/19 16:17 06/25/19 07:56 06/25/19 16:17 Intake & Output 06/24/19 06/25/19 06/26/19 06:59 06:59 06:59 Intake Total 980 1484 723 Output Total 1600 2000 700 Balance -620 -516 23 Weight 79.3 kg 78.5 kg 78.5 kg General appearance: PRESENT: no acute distress, hard of hearing, other - Elderly gentleman Respiratory exam: PRESENT: rhonchi, unlabored. ABSENT: accessory muscle use Cardiovascular exam: PRESENT: RRR, +S1, +S2 GI/Abdominal exam: PRESENT: soft Rectal exam: PRESENT: deferred Gentrourinary exam: PRESENT: ecchymosis Neurological exam: PRESENT: other - Lethargic but barely arousable Results Laboratory Results: 06/25/19 04:00 06/25/19 05:45 06/25/19 06/25/19 06/25/19 04:00 05:45 05:45 WBC 8.3 RBC 4.52 Hgb 13.0 L Hct 38.6 MCV 85 MCH 28.7 MCHC 33.6 RDW 18.4 H Plt Count 111 L Seg Neutrophils % 83.0 H Sodium 133.2 L Potassium 3.9 Chloride 92 L Carbon Dioxide 35 H Anion Gap 6 BUN 24 H Creatinine 0.53 0.57 Est GFR ( Amer) > 60 > 60 Glucose 216 H Calcium 8.6 06/14/19 13:45 Troponin I 0.090 NT-Pro-B Natriuret Pep 691 H Impressions: Chest/Abdomen CTA 06/14/19 19:39 IMPRESSION: 1. No evidence for pulmonary embolus. Mildly enlarged 32 mm main pulmonary artery. 2. Calcifications aortic and mitral annulus. Cardiomegaly mainly right and left atria. 3. Significant right pleural effusion. May be related to cardiac or to liver disease. Other causes not excluded. Associated with collapse of the right lower lobe. Minimal left pleural effusion. Nonspecific mild edema in the aerated lungs. 4. IVC and hepatic vein dilatation. Fatty liver. Possible passive congestion of the liver. 5. Atherosclerotic disease includes coronary arteries abdominal aorta and its branches. 6. Gallstones without acute biliary abnormality. Abdomen Ultrasound 06/17/19 00:00 IMPRESSION: Technical limitations. Findings consistent with acute cholecystitis. Main portal vein flow pattern consistent with portal hypertension. Thoracentesis Ultrasound 06/17/19 00:00 IMPRESSION: SUCCESSFUL THORACENTESIS USING ULTRASOUND GUIDANCE. Abdomen CT 06/18/19 00:00 IMPRESSION: Limited exam secondary to patient motion artifact. 1. Cholelithiasis without gallbladder dilation or definite wall thickening as seen on prior ultrasound. Nonspecific small volume perihepatic and pericholecystic fluid. Findings nonspecific for acute cholecystitis. HIDA scan could be considered for definitive characterization. 2. Small bilateral effusions, right greater left, with associated basilar atelectasis. 3. Indeterminate exophytic 17 mm left renal lesions. Nonemergent Follow-up ultrasound or multiphase CT could be considered for more definitive characterization. 4. Cardiomegaly with extensive coronary atherosclerosis. Guidance Fluoroscopy 06/21/19 00:00 IMPRESSION: SUCCESSFUL PLACEMENT OF A 5 FR DUAL LUMEN 34 CM PICC IN THE RIGHT BASILIC VEIN. Interventional Vascular Procedure 06/21/19 00:00 IMPRESSION: SUCCESSFUL PLACEMENT OF A 5 FR DUAL LUMEN 34 CM PICC IN THE RIGHT BASILIC VEIN. PICC Line Insertion 06/21/19 00:00 IMPRESSION: SUCCESSFUL PLACEMENT OF A 5 FR DUAL LUMEN 34 CM PICC IN THE RIGHT BASILIC VEIN. Chest X-Ray 06/21/19 08:00 IMPRESSION: Increasing bilateral basilar and left perihilar infiltrate. Increasing right pleural effusion. Findings most likely represent pneumonia. 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 Is this a current diagnosis for this admission?: Yes (3) COPD exacerbation Is this a current diagnosis for this admission?: Yes (4) Cholelithiasis Qualifiers: Cholelithiasis location: gallbladder Cholecystitis presence: without cholecystitis Biliary obstruction: without biliary obstruction Qualified Code(s): K80.20 - Calculus of gallbladder without cholecystitis without obstruct ion Is this a current diagnosis for this admission?: Yes (5) Diabetes Qualifiers: Diabetes mellitus type: type 2 Is this a current diagnosis for this admission?: Yes (6) Pleural effusion Is this a current diagnosis for this admission?: Yes (7) Pneumonia Qualifiers: Pneumonia type: due to unspecified organism Laterality: left Lung location: lower lobe of lung Qualified Code(s): J18.9 - Pneumonia, unspecified organism Is this a current diagnosis for this admission?: Yes Plan: Patient is admitted to the medical floor on continuous cardiac telemetry. Blood cultures are negative Sputum cultures are pending; not yet obtained. Unfortunately, chest x-ray shows worsening bilateral basilar and left perihilar infiltrate concerning for pneumonia. He is supported with supplemental oxygen; thus far maintaining saturations on room air. Continue IV vancomycin and cefepime. Consider addition of macrolide. Scheduled and as needed nebulizer treatments. Mucinex twice daily Robitussin as needed Encouraged pulmonary toilet. Will try chest physiotherapy as the patient is un able to participate and flutter valve/incentive spirometer (8) Sinusitis Qualifiers: Sinusitis location: frontal Chronicity: subacute Qualified Code(s): J01.10 - Acute frontal sinusitis, unspecified Is this a current diagnosis for this admission?: Yes (9) Thrombocytopenia Is this a current diagnosis for this admission?: Yes Plan: Improved. Unclear chronicity, follow-up CBC DC Arixtra as he was aso ordered heparin (10) UTI (urinary tract infection) Qualifiers: Urinary tract infection type: catheter-associated UTI Indwelling urinary catheter type: indwelling urethral catheter Encounter type: subsequent encounter Qualified Code(s): T83.511D - Infection and inflammatory reaction due to indwelling urethral catheter, subsequent encounter; N39.0 - Urinary tract infection, site not specified Is this a current diagnosis for this admission?: Yes Plan: Possible contaminant from indwelling Castle; have replaced Castle. Blood cultures negative at 48 hours. Urine culture shows Pseudomonas and Enterococcus Correction; patient has not been receiving Ancef. He has been on Cefepime throughout Continue Cefepime x 10 days related to chronic indwelling catheter (DANII). EOT 06/24. Start Vancomycin for enterococcus. Continue x10 days. EOT 06/27. Now has PICC for consideration of D/C to home with vs SNF 06/24 Plan to dc on Friday if stable - Plan Summary Summary: UTI with cultures yielding Pseudomonas and enterococcus. He has been on cefepime. Patient Castle catheter was changed. He also has a PICC line. The plan is to continue cefepime for 10 days to June 24 due to catheter associated UTI and vancomycin for 10 days through June 27. Pneumonia, left lower lung. Chest x-ray shows worsening bilateral and left perihilar infiltrate. Above antibiotics will cover this as well COPD exacerbation continue with prednisone, may see Robitussin. He is also on oxygen as tolerated Anemia of chronic disease stable Diabetes mellitus with hemoglobin A1c of 6.6% continue diet control Sinusitis currently on Flonase Thrombocytopenia chronic Pleural effusion, with CT showing right-sided pleural effusion and associated partial right lung collapse. He is status post thoracentesis 1 L of fluid removed. Repeat chest x-ray shows worsening effusion. Patient may need repeat thoracentesis if clinically indicated He was started on Lasix 40 mg and spironolactone 100 mg daily Cholelithiasis although ultrasound is suggested possible acute: Cystitis clinical exam as well as follow-up CT showed no overt cholecystitis. General surgery indicated no surgical intervention needed Chronic CHF, diastolic apparently not in acute exacerbation. Echocardiogram reveals LVEF of 50% with mild to moderate diastolic dysfunction patient is on fluid restriction of 2 L, Lasix and spironolactone as well as lisinopril and metoprolol Hypokalemia and hyponatremia likely secondary to diuretics. Will replace potassium 06/22 Continue with IV abx, supportive care, DC planning 06/23 No change in plans, Cefepime to be dc today 06/24 discussed with daughter again at this point plan is to DC patient home after his antibiotics completed.
[2019-06-25] MEDS: SIMVASTATIN 10 MG TABLET PO SCH (21:38)
[2019-06-26] MEDS: IPRATROPIUM/ALBUTEROL 0.5-2.5 MG/3 ML AMPUL NEB SCH ×3 (00:49→15:54)
[2019-06-26] MEDS: NORMAL SALINE 10 ML SDV (AFTER EACH USE) IV PRN (05:32)
[2019-06-26] MEDS: VANCOMYCIN HCL 750 MG in DEXTROSE 5%-WATER 250 ML IV SCH ×2 (05:32→17:09)
[2019-06-26] MEDS: ACETAMINOPHEN 325 MG TABLET PO SCH ×3 (05:33→17:10)
[2019-06-26 07:03] LABS: VANCOMYCIN,TROUGH 17.9 ug/mL (5.0-20.0)
[2019-06-26] MEDS: INSULIN REG, HUMAN 100 UNIT/ML 3 ML VIAL (PYX) SUBCUT SCH ×3 (07:55→16:43)
[2019-06-26] MEDS: PREDNISONE 20 MG TABLET PO SCH ×2 (09:51→12:29)
[2019-06-26] MEDS: SPIRONOLACTONE 25 MG TABLET PO SCH (09:51)
[2019-06-26] MEDS: DOCUSATE SODIUM 100 MG CAPSULE PO SCH ×2 (09:51→17:09)
[2019-06-26] MEDS: FUROSEMIDE 40 MG TABLET PO SCH (09:52)
[2019-06-26] MEDS: METOPROLOL SUCCINATE 25 MG TAB.SR.24H PO SCH (09:52)
[2019-06-26] MEDS: MULTIVITAMIN TABLET PO SCH (09:52)
[2019-06-26] MEDS: MAGNESIUM HYDROXIDE SUSP 30 ML UDCUP PO SCH ×2 (09:52→12:29)
[2019-06-26] MEDS: FOLIC ACID 1 MG TABLET PO SCH (09:52)
[2019-06-26] MEDS: LISINOPRIL 5 MG TABLET PO SCH (09:52)
[2019-06-26] MEDS: GUAIFENESIN 600 MG TABLET.SA PO SCH ×2 (09:52→22:11)
[2019-06-26] MEDS: CEFEPIME 1 GM/D5W RTU 1 GM/50 ML RTUPB IV SCH ×2 (10:14→22:10)
[2019-06-26] MEDS: FLUTICASONE NASAL SPRAY 50 MCG/SPRY 120 SPRAY/16 GM NASL SCH (10:15)
[2019-06-26] MEDS: NORMAL SALINE 10 ML SDV (SCHEDULED) IV SCH ×2 (10:15→22:10)
--- NOTE | 2019-06-26 14:03 | PDOC PROGRESS REPORT ---
Subjective Progress Note for:: 06/26/19 Subjective:: Patient seen along with his daughter. He is taking some steps with physical therapy while really pivoting around his bed. He does seem to be a little stronger today according to reports. I did discuss with the daughter and answered all her questions appropriately to her satisfaction. Her main concern appears to be discharge planning. She feels patient is too weak to come home at this time although they have 24-hour care as well as home health, PT as well as occupational therapy already set up. I have advised her that patient may need to spend some time in the rehab facility if the unable to take care of him at home at this time 06/23 new complaints. No complaints of chest pain or difficulty breathing. 06/24 Patient was lethargic, barely arousable although reports he had woken up earlier before I saw him and he has had progressed. Daughter indicates that at home he does take a nap after breakfast 06/25 patient awake and alert today. Apparently had an episode of coughing and choking when he tried to eat or take his pills yesterday and so patient has been made n.p.o. pending evaluation by speech therapy. Patient only had no indication of at this a problem before however he has been in hospital now for quite a few days and with his generalized weakness this is a consideration. There is no evidence of an acute neurological deficit otherwise Reason For Visit: PNEUMONIA Physical Exam Vital Signs: Temp Pulse Resp BP Pulse Ox 97.7 F 65 26 H 107/48 L 92 06/26/19 12:00 06/26/19 12:00 06/26/19 12:00 06/26/19 12:00 06/26/19 12:00 Intake & Output 06/25/19 06/26/19 06/27/19 06:59 06:59 06:59 Intake Total 1484 1431 300 Output Total 1999 1999 Balance -516 569 300 Weight 78.5 kg 83.6 kg General appearance: PRESENT: no acute distress, other - Elderly Ear exam: ABSENT: bleeding Neck exam: ABSENT: JVD, tenderness Respiratory exam: PRESENT: decreased breath sounds, rhonchi, unlabored Cardiovascular exam: PRESENT: RRR, +S1, +S2 GI/Abdominal exam: PRESENT: normal bowel sounds, soft Rectal exam: PRESENT: deferred Neurological exam: PRESENT: awake, other - Difficult to gauge his orientation Results Laboratory Results: 06/25/19 04:00 06/26/19 05:30 06/26/19 05:30 Creatinine 0.58 Est GFR ( Amer) > 60 06/14/19 13:45 Troponin I 0.090 NT-Pro-B Natriuret Pep 691 H Impressions: Chest/Abdomen CTA 06/14/19 19:39 IMPRESSION: 1. No evidence for pulmonary embolus. Mildly enlarged 32 mm main pulmonary artery. 2. Calcifications aortic and mitral annulus. Cardiomegaly mainly right and left atria. 3. Significant right pleural effusion. May be related to cardiac or to liver disease. Other causes not excluded. Associated with collapse of the right lower lobe. Minimal left pleural effusion. Nonspecific mild edema in the aerated lungs. 4. IVC and hepatic vein dilatation. Fatty liver. Possible passive congestion of the liver. 5. Atherosclerotic disease includes coronary arteries abdominal aorta and its branches. 6. Gallstones without acute biliary abnormality. Abdomen Ultrasound 06/17/19 00:00 IMPRESSION: Technical limitations. Findings consistent with acute cholecystitis. Main portal vein flow pattern consistent with portal hypertension. Thoracentesis Ultrasound 06/17/19 00:00 IMPRESSION: SUCCESSFUL THORACENTESIS USING ULTRASOUND GUIDANCE. Abdomen CT 06/18/19 00:00 IMPRESSION: Limited exam secondary to patient motion artifact. 1. Cholelithiasis without gallbladder dilation or definite wall thickening as seen on prior ultrasound. Nonspecific small volume perihepatic and pericholecystic fluid. Findings nonspecific for acute cholecystitis. HIDA scan could be considered for definitive characterization. 2. Small bilateral effusions, right greater left, with associated basilar atelectasis. 3. Indeterminate exophytic 17 mm left renal lesions. Nonemergent Follow-up ultrasound or multiphase CT could be considered for more definitive characterization. 4. Cardiomegaly with extensive coronary atherosclerosis. Guidance Fluoroscopy 06/21/19 00:00 IMPRESSION: SUCCESSFUL PLACEMENT OF A 5 FR DUAL LUMEN 34 CM PICC IN THE RIGHT BASILIC VEIN. Interventional Vascular Procedure 06/21/19 00:00 IMPRESSION: SUCCESSFUL PLACEMENT OF A 5 FR DUAL LUMEN 34 CM PICC IN THE RIGHT BASILIC VEIN. PICC Line Insertion 06/21/19 00:00 IMPRESSION: SUCCESSFUL PLACEMENT OF A 5 FR DUAL LUMEN 34 CM PICC IN THE RIGHT BASILIC VEIN. Chest X-Ray 06/21/19 08:00 IMPRESSION: Increasing bilateral basilar and left perihilar infiltrate. Increasing right pleural effusion. Findings most likely represent pneumonia. 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 Is this a current diagnosis for this admission?: Yes (3) COPD exacerbation Is this a current diagnosis for this admission?: Yes (4) Cholelithiasis Qualifiers: Cholelithiasis location: gallbladder Cholecystitis presence: without cholecystitis Biliary obstruction: without biliary obstruction Qualified Code(s): K80.20 - Calculus of gallbladder without cholecystitis without obstruction Is this a current diagnosis for this admission?: Yes (5) Diabetes Qualifiers: Diabetes mellitus type: type 2 Is this a current diagnosis for this admission?: Yes (6) Pleural effusion Is this a current diagnosis for this admission?: Yes (7) Pneumonia Qualifiers: Pneumonia type: due to unspecified organism Laterality: left Lung locati on: lower lobe of lung Qualified Code(s): J18.9 - Pneumonia, unspecified organism Is this a current diagnosis for this admission?: Yes (8) Sinusitis Qualifiers: Sinusitis location: frontal Chronicity: subacute Qualified Code(s): J01. 10 - Acute frontal sinusitis, unspecified Is this a current diagnosis for this admission?: Yes (9) Thrombocytopenia Is this a current diagnosis for this admission?: Yes (10) UTI (urinary tract infection) Qualifiers: Urinary tract infection type: catheter-associated UTI Indwelling urinary catheter type: indwelling urethral catheter Encounter type: subsequent encounter Qualified Code(s): T83.511D - Infection and inflammatory reaction due to indwelling urethral catheter, subsequent encounter; N39.0 - Urinary tract infection, site not specified Is this a current diagnosis for this admission?: Yes - Plan Summary Summary: UTI with cultures yielding Pseudomonas and enterococcus. He has been on cefepime. Patient Castle catheter was changed. He also has a PICC line. The plan is to continue cefepime for 10 days to June 24 due to catheter associated UTI and vancomycin for 10 days through June 27. Pneumonia, left lower lung. Chest x-ray shows worsening bilateral and left perihilar infiltrate. Above antibiotics will cover this as well COPD exacerbation continue with prednisone, may see Angel. He is also on oxygen as tolerated Anemia of chronic disease stable Diabetes mellitus with hemoglobin A1c of 6.6% continue diet control Sinusitis currently on Flonase Thrombocytopenia chronic Pleural effusion, with CT showing right-sided pleural effusion and associated partial right lung collapse. He is status post thoracentesis 1 L of fluid removed. Repeat chest x-ray shows worsening effusion. Patient may need repeat thoracentesis if clinically indicated He was started on Lasix 40 mg and spironolactone 100 mg daily Cholelithiasis although ultrasound is suggested possible acute: Cystitis clinical exam as well as follow-up CT showed no overt cholecystitis. General surgery indicated no surgical intervention needed Chronic CHF, diastolic apparently not in acute exacerbation. Echocardiogram reveals LVEF of 50% with mild to moderate diastolic dysfunction patient is on fluid restriction of 2 L, Lasix and spironolactone as well as lisinopril and metoprolol Hypokalemia and hyponatremia likely secondary to diuretics. Will replace potassium 06/22 Continue with IV abx, supportive care, DC planning 06/23 No change in plans, Cefepime to be dc today 06/24 discussed with daughter again at this point plan is to DC patient home after his antibiotics completed. 06/25 discussed with daughter again. Questions answered. She is aware speech therapy evaluation is currently pending - Time Time Spent with patient: 25-34 minutes Anticipated discharge: Home Within: within 72 hours
[2019-06-26] MEDS: SIMVASTATIN 10 MG TABLET PO SCH (22:11)
[2019-06-27] MEDS: ACETAMINOPHEN 325 MG TABLET PO SCH ×4 (00:06→17:47)
[2019-06-27] MEDS: IPRATROPIUM/ALBUTEROL 0.5-2.5 MG/3 ML AMPUL NEB SCH ×4 (00:20→23:52)
[2019-06-27] MEDS: VANCOMYCIN HCL 750 MG in DEXTROSE 5%-WATER 250 ML IV SCH ×2 (05:06→17:49)
[2019-06-27] MEDS: INSULIN REG, HUMAN 100 UNIT/ML 3 ML VIAL (PYX) SUBCUT SCH ×3 (07:59→16:48)
[2019-06-27] MEDS: NORMAL SALINE 1000 ML 1,000 ML IV PRN (10:14)
[2019-06-27] MEDS: NORMAL SALINE 10 ML SDV (SCHEDULED) IV SCH ×2 (10:15→21:35)
[2019-06-27] MEDS: LISINOPRIL 5 MG TABLET PO SCH (10:19)
[2019-06-27] MEDS: FLUTICASONE NASAL SPRAY 50 MCG/SPRY 120 SPRAY/16 GM NASL SCH (10:21)
[2019-06-27] MEDS: SPIRONOLACTONE 25 MG TABLET PO SCH (10:21)
[2019-06-27] MEDS: DOCUSATE SODIUM 100 MG CAPSULE PO SCH ×2 (10:24→17:46)
[2019-06-27] MEDS: PREDNISONE 20 MG TABLET PO SCH (10:24)
[2019-06-27] MEDS: FOLIC ACID 1 MG TABLET PO SCH (10:24)
[2019-06-27] MEDS: FUROSEMIDE 40 MG TABLET PO SCH (10:24)
[2019-06-27] MEDS: GUAIFENESIN 600 MG TABLET.SA PO SCH ×2 (10:25→21:10)
[2019-06-27] MEDS: MULTIVITAMIN TABLET PO SCH (10:25)
[2019-06-27] MEDS: METOPROLOL SUCCINATE 25 MG TAB.SR.24H PO SCH (10:25)
[2019-06-27] MEDS: MAGNESIUM HYDROXIDE SUSP 30 ML UDCUP PO SCH (10:25)
--- NOTE | 2019-06-27 14:51 | PDOC PROGRESS REPORT ---
Subjective Reason For Visit: PNEUMONIA Physical Exam Vital Signs: Temp Pulse Resp BP Pulse Ox 97.5 F 74 20 105/47 L 94 06/27/19 10:53 06/27/19 14:00 06/27/19 10:53 06/27/19 10:53 06/27/19 10:53 Intake & Output 06/26/19 06/27/19 06/28/19 06:59 06:59 06:59 Intake Total 1431 850 Output Total 2000 925 400 Balance -569 -75 -400 Weight 83.6 kg 78.7 kg Results Laboratory Results: 06/25/19 04:00 06/26/19 05:30 06/14/19 13:45 Troponin I 0.090 NT-Pro-B Natriuret Pep 691 H Impressions: Chest/Abdomen CTA 06/14/19 19:39 IMPRESSION: 1. No evidence for pulmonary embolus. Mildly enlarged 32 mm main pulmonary artery. 2. Calcifications aortic and mitral annulus. Cardiomegaly mainly right and left atria. 3. Significant right pleural effusion. May be related to cardiac or to liver disease. Other causes not excluded. Associated with collapse of the right lower lobe. Minimal left pleural effusion. Nonspecific mild edema in the aerated lungs. 4. IVC and hepatic vein dilatation. Fatty liver. Possible passive congestion of the liver. 5. Atherosclerotic disease includes coronary arteries abdominal aorta and its branches. 6. Gallstones without acute biliary abnormality. Abdomen Ultrasound 06/17/19 00:00 IMPRESSION: Technical limitations. Findings consistent with acute cholecystitis. Main portal vein flow pattern consistent with portal hypertension. Thoracentesis Ultrasound 06/17/19 00:00 IMPRESSION: SUCCESSFUL THORACENTESIS USING ULTRASOUND GUIDANCE. Abdomen CT 06/18/19 00:00 IMPRESSION: Limited exam secondary to patient motion artifact. 1. Cholelithiasis without gallbladder dilation or definite wall thickening as seen on prior ultrasound. Nonspecific small volume perihepatic and pericholecystic fluid. Findings nonspecific for acute cholecystitis. HIDA scan could be considered for definitive characterization. 2. Small bilateral effusions, right greater left, with associated basilar atelectasis. 3. Indeterminate exophytic 17 mm left renal lesions. Nonemergent Follow-up ultrasound or multiphase CT could be considered for more definitive leo acterization. 4. Cardiomegaly with extensive coronary atherosclerosis. Guidance Fluoroscopy 06/21/19 00:00 IMPRESSION: SUCCESSFUL PLACEMENT OF A 5 FR DUAL LUMEN 34 CM PICC IN THE RIGHT BASILIC VEIN. Interventional Vascular Procedure 06/21/19 00:00 IMPRESSION: SUCCESSFUL PLACEMENT OF A 5 FR DUAL LUMEN 34 CM PICC IN THE RIGHT BASILIC VEIN. PICC Line Insertion 06/21/19 00:00 IMPRESSION: SUCCESSFUL PLACEMENT OF A 5 FR DUAL LUMEN 34 CM PICC IN THE RIGHT BASILIC VEIN. Chest X-Ray 06/21/19 08:00 IMPRESSION: Increasing bilateral basilar and left perihilar infiltrate. Increasing right pleural effusion. Findings most likely represent pneumonia. 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 Is this a current diagnosis for this admission?: Yes (3) COPD exacerbation Is this a current diagnosis for this admission?: Yes (4) Cholelithiasis Qualifiers: Cholelithiasis location: gallbladder Cholecystitis presence: without cholecystitis Biliary obstruction: without biliary obstruction Qualified Code(s): K80.20 - Calculus of gallbladder without cholecystitis without obstruction Is this a current diagnosis for this admission?: Yes (5) Diabetes Qualifiers: Diabetes mellitus type: type 2 Is this a current diagnosis for this admission?: Yes (6) Pleural effusion Is this a current diagnosis for this admission?: Yes (7) Pneumonia Qualifiers: Pneumonia type: due to unspecified organism Laterality: left Lung location: lower lobe of lung Qualified Code(s): J18.9 - Pneumonia, unspecified organism Is this a current diagnosis for this admission?: Yes (8) Sinusitis Qualifiers: Sinusitis location: frontal Chronicity: subacute Qualified Code(s): J01.10 - Acute frontal sinusitis, unspecified Is this a current diagnosis for this admission?: Yes (9) Thrombocytopenia Is this a current diagnosis for this admission?: Yes (10) UTI (urinary tract infection) Qualifiers: Urinary tract infection type: catheter-associated UTI Indwelling urinary catheter type: indwelling urethral catheter Encounter type: subsequent encounter Qualified Code(s): T83.511D - Infection and inflammatory reaction due to indwelling urethral catheter, subsequent encounter; N39.0 - Urinary tract infection, site not specified Is this a current diagnosis for this admission?: Yes - Plan Summary Summary: 3/UTI with cultures yielding Pseudomonas and enterococcus. He has been on cefep pillo. Patient Castle catheter was changed. He also has a PICC line. The plan is to continue cefepime for 10 days to June 24 due to catheter associated UTI and vancomycin for 10 days through June 27. Pneumonia, left lower lung. Chest x-ray shows worsening bilateral and left perihilar infiltrate. Above antibiotics will cover this as well COPD exacerbation continue with prednisone, may see Angel. He is also on oxygen as tolerated Anemia of chronic disease stable Diabetes mellitus with hemoglobin A1c of 6.6% continue diet control Sinusitis currently on Flonase Thrombocytopenia chronic Pleural effusion, with CT showing right-sided pleural effusion and associated partial right lung collapse. He is status post thoracentesis 1 L of fluid removed. Repeat chest x-ray shows worsening effusion. Patient may need repeat thoracentesis if clinically indicated He was started on Lasix 40 mg and spironolactone 100 mg daily Cholelithiasis although ultrasound is suggested possible acute: Cystitis clinical exam as well as follow-up CT showed no overt cholecystitis. General surgery indicated no surgical intervention needed Chronic CHF, diastolic apparently not in acute exacerbation. Echocardiogram reveals LVEF of 50% with mild to moderate diastolic dysfunction patient is on fluid restriction of 2 L, Lasix and spironolactone as well as lisinopril and metoprolol Hypokalemia and hyponatremia likely secondary to diuretics. Will replace potassium 06/22 Continue with IV abx, supportive care, DC planning 06/23 No change in plans, Cefepime to be dc today 06/24 discussed with daughter again at this point plan is to DC patient home after his antibiotics completed. 06/25 discussed with daughter again. Questions answered. She is aware speech therapy evaluation is currently pending 06/26 patient awake and alert today however he seems a little bit more confused. Of note his daughter has gone back to [place] I believe and she is not present today. Patient is n.p.o. as we are waiting swallowing evaluation. I will also follow-up with a chest x-ray in a.m. if deemed necessary. There is been no report of dyspnea in the last couple of days however lung exam did sound crackles He is currently off cefepime and the plan is to discontinue vancomycin in a.m.
[2019-06-27] MEDS ORDERED: ZIPRASIDONE MESYLATE INJ/PF 20 MG SDV IM PRN (15:39)
[2019-06-27] MEDS ORDERED: LORAZEPAM 1 MG TABLET PO PRN (15:40)
[2019-06-27] MEDS: SIMVASTATIN 10 MG TABLET PO SCH (21:10)
[2019-06-27] MEDS: LORAZEPAM INJ 2 MG/1 ML VIAL IV PRN (21:35)
[2019-06-28] MEDS: ACETAMINOPHEN 325 MG TABLET PO SCH ×3 (06:10→17:11)
[2019-06-28 07:12] LABS: ABSOLUTE EOSINOPHILS # (AUTO) 0.1 10^3/uL (0.0-0.6); ABSOLUTE LYMPHOCYTES (AUTO) 0.6 10^3/uL (0.5-4.7); TOTAL CELLS COUNTED % (AUTO) 100 %; WHITE BLOOD COUNT 7.9 10^3/uL (4.0-10.5)
[2019-06-28 07:27] LABS: ABSOLUTE NEUT (AUTO) 6.2 10^3/uL (1.7-8.2); BASOPHILS % (AUTO) 0.3 % (0-2); HEMATOCRIT 38.8 % (37.9-51.0); HEMOGLOBIN 12.7 g/dL (13.5-17.0); LYMPHOCYTES % (AUTO) 7.6 % (13-45); MEAN CORPUSCULAR HEMOGLOBIN 27.8 pg (27.0-33.4); MEAN CORPUSCULAR HGB CONC 32.7 g/dL (32.0-36.0); MEAN CORPUSCULAR VOLUME 85 fl (80-97); MONOCYTES % (AUTO) 12.5 % (3-13); PLATELET COUNT 127 10^3/uL (150-450); RED BLOOD COUNT 4.57 10^6/uL (4.35-5.55); RED CELL DISTRIBUTION WIDTH 18.4 % (11.5-14.0); SEGMENTED NEUTROPHILS % (AUTO) 78.6 % (42-78)
[2019-06-28 07:35] LABS: BLOOD UREA NITROGEN 19 mg/dL (7-20); CALCIUM 8.5 mg/dL (8.4-10.2); GLUCOSE 92 mg/dL (75-110); POTASSIUM 3.8 mmol/L (3.6-5.0)
[2019-06-28 07:40] LABS: CARBON DIOXIDE 36 mmol/L (22-30); CHLORIDE 99 mmol/L (98-107)
[2019-06-28 07:42] LABS: ANION GAP 2 (5-19)
[2019-06-28] MEDS: INSULIN REG, HUMAN 100 UNIT/ML 3 ML VIAL (PYX) SUBCUT SCH ×3 (08:13→21:43)
[2019-06-28] MEDS: IPRATROPIUM/ALBUTEROL 0.5-2.5 MG/3 ML AMPUL NEB SCH ×2 (09:31→16:19)
[2019-06-28] MEDS: SPIRONOLACTONE 25 MG TABLET PO SCH (10:03)
[2019-06-28] MEDS: PREDNISONE 20 MG TABLET PO SCH (10:04)
[2019-06-28] MEDS: FOLIC ACID 1 MG TABLET PO SCH (10:04)
[2019-06-28] MEDS: DOCUSATE SODIUM 100 MG CAPSULE PO SCH ×2 (10:04→17:11)
[2019-06-28] MEDS: MAGNESIUM HYDROXIDE SUSP 30 ML UDCUP PO SCH (10:04)
[2019-06-28] MEDS: GUAIFENESIN 600 MG TABLET.SA PO SCH ×2 (10:04→21:44)
[2019-06-28] MEDS: FUROSEMIDE 40 MG TABLET PO SCH (10:04)
[2019-06-28] MEDS: FLUTICASONE NASAL SPRAY 50 MCG/SPRY 120 SPRAY/16 GM NASL SCH (10:04)
[2019-06-28] MEDS: MULTIVITAMIN TABLET PO SCH (10:05)
[2019-06-28] MEDS: METOPROLOL SUCCINATE 25 MG TAB.SR.24H PO SCH (10:05)
[2019-06-28] MEDS: LISINOPRIL 5 MG TABLET PO SCH (10:05)
[2019-06-28] MEDS: NORMAL SALINE 10 ML SDV (SCHEDULED) IV SCH ×2 (10:08→23:14)
[2019-06-28] MEDS: LORAZEPAM INJ 2 MG/1 ML VIAL IV PRN ×2 (12:37→23:54)
--- NOTE | 2019-06-28 12:37 | RADIOLOGY REPORT (SQ) ---
EXAM DESCRIPTION: CHEST SINGLE VIEW COMPLETED DATE/TIME: 06/28/2019 10:46 am REASON FOR STUDY: PNA follow up COMPARISON: 06/21/2019 EXAM PARAMETERS: NUMBER OF VIEWS: One view. TECHNIQUE: Single frontal radiographic view of the chest acquired. RADIATION DOSE: NA LIMITATIONS: None. FINDINGS: LUNGS AND PLEURA: Stable right pleural effusion. Persistent opacification in the lung bas es and in the right upper lobe MEDIASTINUM AND HILAR STRUCTURES: No masses. Contour normal. HEART AND VASCULAR STRUCTURES: Cardiomegaly. BONES: No acute findings. HARDWARE: None in the chest. OTHER: No other significant finding. IMPRESSION: Cardiomegaly. Cannot exclude mild pulmonary edema. Right pleural effusion. Airspace d isease in the left lower lobe, pneumonia versus atelectasis. TECHNICAL DOCUMENTATION: JOB ID: [id number] 2010 [employer]- All Rights Reserved Reading location - IP/workstation name: [email or web address]
[2019-06-28] MEDS: NORMAL SALINE 1000 ML 1,000 ML IV PRN (12:42)
--- NOTE | 2019-06-28 13:23 | RADIOLOGY REPORT (SQ) ---
EXAM DESCRIPTION: CT HEAD WITHOUT COMPLETED DATE/TIME: 06/28/2019 1:08 pm REASON FOR STUDY: ALTERED MENTAL STATUS COMPARISON: None. TECHNIQUE: Axial images acquired through the brain without intravenous contrast. Images reviewed wit h bone, brain and subdural windows. Images stored on PACS. All CT scanners at this facility use dose modulation, iterative reconstruction, and/or weight based d osing when appropriate to reduce radiation dose to as low as reasonably achievable (ALARA). [facility]: Dose Right [facility]: CareDose [facility]: Dose Right [facility]: Teradose 4D [facility]: Smart Ntractive RADIATION DOSE: CT Rad equipment meets quality standard of care and radiation dose reduction techniq ues were employed. CTDIvol: 48.6 mGy. DLP: 979 mGy-cm.. LIMITATIONS: None. FINDINGS: VENTRICLES: Normal size and contour. CEREBRUM: No masses. No hemorrhage. No midline shift. Age appropriate white matter. No evidence for a cute infarction. CEREBELLUM: No masses. No hemorrhage. No alteration of density. No evidence for acute infarction. EXTRA-AXIAL SPACES: No fluid collections. ORBITS AND GLOBE: No intra- or extraconal masses. Normal contour of globe without masses. CALVARIUM: No fracture. PARANASAL SINUSES: No fluid or mucosal thickening. SOFT TISSUES: No mass or hematoma. OTHER: No other significant finding. IMPRESSION: NO ACUTE INTRACRANIAL FINDINGS. EVIDENCE OF ACUTE STROKE: NO. TECHNICAL DOCUMENTATION: JOB ID: [id number] [id number] Quality ID # [id number]: Final reports with documentation of one or more dose reduction techniques (e.g., Au tomated exposure control, adjustment of the mA and/or kV according to patient size, use of iterative reconstruction technique) 2010 [employer]- All Rights Reserved Reading location - IP/workstation name: [email or web address]
--- NOTE | 2019-06-28 18:00 | PDOC PROGRESS REPORT ---
Subjective Progress Note for:: 06/28/19 Subjective:: Patient seen along with his daughter. He is taking some steps with physical therapy while really pivoting around his bed. He does seem to be a little stronger today according to reports. I did discuss with the daughter and answered all her questions appropriately to her satisfaction. Her main concern appears to be discharge planning. She feels patient is too weak to come home at this time although they have 24-hour care as well as home health, PT as well as occupational therapy already set up. I have advised her that patient may need to spend some time in the rehab facility if the unable to take care of him at home at this time 06/23 new complaints. No complaints of chest pain or difficulty breathing. 06/24 Patient was lethargic, barely arousable although reports he had woken up earlier before I saw him and he has had progressed. Daughter indicates that at home he does take a nap after breakfast 06/25 patient awake and alert today. Apparently had an episode of coughing and choking when he tried to eat or take his pills yesterday and so patient has been made n.p.o. pending evaluation by speech therapy. Patient only had no indication of at this a problem before however he has been in hospital now for quite a few days and with his generalized weakness this is a consideration. There is no evidence of an acute neurological deficit otherwise 06/27 Remains confused and poorly responsive Reason For Visit: PNEUMONIA Physical Exam Vital Signs: Temp Pulse Resp BP Pulse Ox 97.3 F 66 19 110/44 L 97 06/28/19 15:14 06/28/19 15:14 06/28/19 15:14 06/28/19 15:14 06/28/19 15:14 Intake & Output 06/27/19 06/28/19 06/29/19 06:59 06:59 06:59 Intake Total 850 1000 Output Total 925 2659 300 Balance -47 -3952 -300 Weight 78.7 kg 79.9 kg General appearance: PRESENT: no acute distress, other - elderly Respiratory exam: PRESENT: crackles, rhonchi. ABSENT: wheezes Cardiovascular exam: PRESENT: RRR, +S1, +S2 Rectal exam: PRESENT: deferred Extremities exam: ABSENT: calf tenderness Neurological exam: PRESENT: altered, other - confused. ABSENT: oriented to person, oriented to place Focused psych exam: PRESENT: restlessness Results Laboratory Results: 06/28/19 06:40 06/28/19 06:40 06/28/19 06/28/19 06:40 06:40 WBC 7.9 RBC 4.57 Hgb 12.7 L Hct 38.8 MCV 85 MCH 27.8 MCHC 32.7 RDW 18.4 H Plt Count 127 L Seg Neutrophils % 78.6 H Sodium 137.4 Potassium 3.8 Chloride 99 Carbon Dioxide 36 H Anion Gap 2 L BUN 19 Creatinine 0.48 L Est GFR ( Amer) > 60 Glucose 92 Calcium 8.5 06/14/19 06/28/19 13:45 06:40 Troponin I 0.090 NT-Pro-B Natriuret Pep 691 H 1770 H Impressions: Chest/Abdomen CTA 06/14/19 19:39 IMPRESSION: 1. No evidence for pulmonary embolus. Mildly enlarged 32 mm main pulmonary artery. 2. Calcifications aortic and mitral annulus. Cardiomegaly mainly right and left atria. 3. Significant right pleural effusion. May be related to cardiac or to liver disease. Other causes not excluded. Associated with collapse of the right lower lobe. Minimal left pleural effusion. Nonspecific mild edema in the aerated lungs. 4. IVC and hepatic vein dilatation. Fatty liver. Possible passive congestion of the liver. 5. Atherosclerotic disease includes coronary arteries abdominal aorta and its branches. 6. Gallstones without acute biliary abnormality. Abdomen Ultrasound 06/17/19 00:00 IMPRESSION: Technical limitations. Findings consistent with acute cholecystitis. Main portal vein flow pattern consistent with portal hypertension. Thoracentesis Ultrasound 06/17/19 00:00 IMPRESSION: SUCCESSFUL THORACENTESIS USING ULTRASOUND GUIDANCE. Abdomen CT 06/18/19 00:00 IMPRESSION: Limited exam secondary to patient motion artifact. 1. Cholelithiasis without gallbladder dilation or definite wall thickening as seen on prior ultrasound. Nonspecific small volume perihepatic and pericholecystic fluid. Findings nonspecific for acute cholecystitis. HIDA scan could be considered for definitive characterization. 2. Small bilateral effusions, right greater left, with associated basilar atelectasis. 3. Indeterminate exophytic 17 mm left renal lesions. Nonemergent Follow-up ultrasound or multiphase CT could be considered for more definitive characterization. 4. Cardiomegaly with extensive coronary atherosclerosis. Guidance Fluoroscopy 06/21/19 00:00 IMPRESSION: SUCCESSFUL PLACEMENT OF A 5 FR DUAL LUMEN 34 CM PICC IN THE RIGHT BASILIC VEIN. Interventional Vascular Procedure 06/21/19 00:00 IMPRESSION: SUCCESSFUL PLACEMENT OF A 5 FR DUAL LUMEN 34 CM PICC IN THE RIGHT BASILIC VEIN. PICC Line Insertion 06/21/19 00:00 IMPRESSION: SUCCESSFUL PLACEMENT OF A 5 FR DUAL LUMEN 34 CM PICC IN THE RIGHT BASILIC VEIN. Chest X-Ray 06/28/19 00:00 IMPRESSION: Cardiomegaly. Cannot exclude mild pulmonary edema. Right pleural effusion. Airspace disease in the left lower lobe, pneumonia versus atelectasis. Head CT 06/28/19 00:00 IMPRESSION: NO ACUTE INTRACRANIAL FINDINGS. EVIDENCE OF ACUTE STROKE: NO. 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 Is this a current diagnosis for this admission?: Yes (3) COPD exacerbation Is this a current diagnosis for this admission?: Yes (4) Cholelithiasis Qualifiers: Cholelithiasis location: gallbladder Cholecystitis presence: without c holecystitis Biliary obstruction: without biliary obstruction Qualified Code(s): K80.20 - Calculus of gallbladder without cholecystitis without ob struction Is this a current diagnosis for this admission?: Yes (5) Diabetes Qualifiers: Diabetes mellitus type: type 2 Is this a current diagnosis for this admission?: Yes (6) Pleural effusion Is this a current diagnosis for this admission?: Yes (7) Pneumonia Qualifiers: Pneumonia type: due to unspecified organism Laterality: left Lung location: lower lobe of lung Qualified Code(s): J18.9 - Pneumonia, unspecified organism Is this a current diagnosis for this admission?: Yes (8) Sinusitis Qualifiers: Sinusitis location: frontal Chronicity: subacute Qualified Code(s): J01.10 - Acute frontal sinusitis, unspecified Is this a current diagnosis for this admission?: Yes (9) Thrombocytopenia Is this a current diagnosis for this admission?: Yes (10) UTI (urinary tract infection) Qualifiers: Urinary tract infection type: catheter-associated UTI Indwelling urinary catheter type: indwelling urethral catheter Encounter type: subsequent encounter Qualified Code(s): T83.511D - Infection and inflammatory reaction due to indwelling urethral catheter, subsequent encounter; N39.0 - Urinary tract infection, site not specified Is this a current diagnosis for this admission?: Yes - Plan Summary Summary: 3/UTI with cultures yielding Pseudomonas and enterococcus. He has been on cefepime. Patient Castle catheter was changed. He also has a PICC line. The plan is to continue cefepime for 10 days to June 24 due to catheter associated UTI and vancomycin for 10 days through June 27. Pneumonia, left lower lung. Chest x-ray shows worsening bilateral and left perihilar infiltrate. Above antibiotics will cover this as well COPD exacerbation continue with prednisone, may see Angel. He is also on oxygen as tolerated Anemia of chronic disease stable Diabetes mellitus with hemoglobin A1c of 6.6% continue diet control Sinusitis currently on Flonase Thrombocytopenia chronic Pleural effusion, with CT showing right-sided pleural effusion and associated partial right lung collapse. He is status post thoracentesis 1 L of fluid removed. Repeat chest x-ray shows worsening effusion. Patient may need repeat thoracentesis if clinically indicated He was started on Lasix 40 mg and spironolactone 100 mg daily Cholelithiasis although ultrasound is suggested possible acute: Cystitis clinical exam as well as follow-up CT showed no overt cholecystitis. General surgery indicated no surgical intervention needed Chronic CHF, diastolic apparently not in acute exacerbation. Echocardiogram reveals LVEF of 50% with mild to moderate diastolic dysfunction patient is on fluid restriction of 2 L, Lasix and spironolactone as well as lisinopril and metoprolol Hypokalemia and hyponatremia likely secondary to diuretics. Will replace potassium 06/22 Continue with IV abx, supportive care, DC planning 06/23 No change in plans, Cefepime to be dc today 06/24 discussed with daughter again at this point plan is to DC patient home a fter his antibiotics completed. 06/25 discussed with daughter again. Questions answered. She is aware speech therapy evaluation is currently pending 06/26 patient awake and alert today however he seems a little bit more confused. Of note his daughter has gone back to [place] I believe and she is not present today. Patient is n.p.o. as we are waiting swallowing evaluation. I will also follow-up with a chest x-ray in a.m. if deemed necessary. There is been no report of dyspnea in the last couple of days however lung exam did sound crackles He is currently off cefepime and the plan is to discontinue vancomycin in a.m. 06/27Ches x-ray shows cardiomegaly, right pleural effusion, airspace disease in the left lower lobe, pneumonia versus atelectasis. Patient has been receiving vancomycin and has just completed a full course of cefepime. He definitely did take a turn for the worse yesterday as he became less responsive and he became very confused. He is respiration has not been compromised although lung exam does confirm crackling. CT scan of the brain shows no acute findings. Labs fr om today is actually not significant. Defer starting any antibiotic for now and patient should be reassessed in a.m. Patient's prognosis is pretty poor given his age and comorbidities - Inpatient Certification Based on my medical assessment, after consideration of the patient's comorbidities, presenting symptoms, or acuity I expect that the services needed warrant INPATIENT care.: Yes Medical Necessity: Need for IV Antibiotics, Risk of Complication if Not Cared For in Hospital
[2019-06-28] MEDS: FUROSEMIDE INJ/PF 40 MG/4 ML SDV IV SCH (18:36)
[2019-06-28] MEDS: NORMAL SALINE 10 ML SDV (AFTER EACH USE) IV PRN (18:37)
[2019-06-28] MEDS: SIMVASTATIN 10 MG TABLET PO SCH (23:14)
[2019-06-29] MEDS: IPRATROPIUM/ALBUTEROL 0.5-2.5 MG/3 ML AMPUL NEB SCH ×3 (00:40→16:11)
[2019-06-29] MEDS: ACETAMINOPHEN 325 MG TABLET PO SCH ×4 (04:44→17:55)
[2019-06-29] MEDS: INSULIN REG, HUMAN 100 UNIT/ML 3 ML VIAL (PYX) SUBCUT SCH ×3 (08:23→17:54)
[2019-06-29] MEDS: NORMAL SALINE 10 ML SDV (SCHEDULED) IV SCH ×2 (10:45→22:00)
[2019-06-29] MEDS: SPIRONOLACTONE 25 MG TABLET PO SCH (11:02)
[2019-06-29] MEDS: PREDNISONE 20 MG TABLET PO SCH (11:02)
[2019-06-29] MEDS: DOCUSATE SODIUM 100 MG CAPSULE PO SCH ×2 (11:02→17:54)
[2019-06-29] MEDS: FLUTICASONE NASAL SPRAY 50 MCG/SPRY 120 SPRAY/16 GM NASL SCH (11:02)
[2019-06-29] MEDS: FOLIC ACID 1 MG TABLET PO SCH (11:02)
[2019-06-29] MEDS: FUROSEMIDE INJ/PF 40 MG/4 ML SDV IV SCH (11:04)
[2019-06-29] MEDS: MAGNESIUM HYDROXIDE SUSP 30 ML UDCUP PO SCH (11:04)
[2019-06-29] MEDS: MULTIVITAMIN TABLET PO SCH (11:05)
[2019-06-29] MEDS: GUAIFENESIN 600 MG TABLET.SA PO SCH ×2 (11:05→22:23)
[2019-06-29] MEDS: METOPROLOL SUCCINATE 25 MG TAB.SR.24H PO SCH (11:05)
[2019-06-29] MEDS: NORMAL SALINE 1000 ML 1,000 ML IV PRN (11:14)
--- NOTE | 2019-06-29 12:57 | ADVANCED CARE ---
- Diagnosis (1) UTI (urinary tract infection) Diagnosis Current: Yes (2) Pneumonia Diagnosis Current: Yes (3) COPD exacerbation Diagnosis Current: Yes (4) Anemia Diagnosis Current: Yes (5) Diabetes Diagnosis Current: Yes (6) Sinusitis Diagnosis Current: Yes (7) Thrombocytopenia Diagnosis Current: Yes (8) Pleural effusion Diagnosis Current: Yes (9) Cholelithiasis Diagnosis Current: Yes (10) CHF (congestive heart failure) Diagnosis Current: Yes Attendance: By phone, the patient's daughter, Juliana, and sons, Dominic and Balaji. The patient's children have asked to have a group discussion together to discuss the detailed clinical picture and then include their mother (patient's ) for a more general conversation regarding goals of care. Resuscitation Status: Do Not Resuscitate Discussion: Long discussion had regarding the patient's chronic medical conditions, clinical course, concern for aspiration pneumonia, decreased mental status, and poor prognosis. Reviewed with patient's family members options for continued aggressive treatment, consideration of alternate means of hydration and nutrition (PEG tube), versus transition to hospice/comfort care. Patient's family members were each provided opportunity to ask questions; have agreed that the patient should be changed to DNR/DNI. They plan to discuss amongst each other possible discharge to home with hospice and notify us upon their decision. Care Planning Goals: DNR/DNI Consider discharge home with hospice services. Time Spent: 45 min
--- NOTE | 2019-06-29 13:13 | PDOC PROGRESS REPORT ---
Subjective Progress Note for:: 06/29/19 Subjective:: EMMA HIGGINBOTHAM is a 89 year old male with a past medical history of congestive heart failure with an ejection fraction, paroxysmal atrial fibrillation, COPD, type 2 diabetes, status post coronary artery bypass graft and chronic indwelling Castle catheter admitted 06/14/2019 with COPD exacerbation, left lower lobe pneumonia, and urinary tract infection Patient was seen on morning rounds. He was found resting in bed, on supplement oxygen via NC at 3lpm. He is minimally arousable to sternal rub (facial grimacing (but does not open his eyes, answer questions, or follow directions. Long goals of care discussion had with the patient's children; see separate ACP note. Reason For Visit: PNEUMONIA Physical Exam Vital Signs: Temp Pulse Resp BP Pulse Ox 98.4 F 65 19 104/32 L 99 06/29/19 11:32 06/29/19 11:32 06/29/19 11:32 06/29/19 11:32 06/29/19 11:32 Intake & Output 06/28/19 06/29/19 06/30/19 06:59 06:59 06:59 Intake Total 1000 1000 Output Total 2525 2375 175 Balance -1525 -1375 -175 Weight 79.9 kg 79 kg General appearance: PRESENT: mild distress, well-developed, well-nourished Head exam: PRESENT: atraumatic, normocephalic Eye exam: PRESENT: conjunctiva pale, EOMI, PERRLA. ABSENT: scleral icterus Mouth exam: PRESENT: dry mucosa, tongue midline Respiratory exam: PRESENT: crackles, rhonchi, symmetrical, unlabored, other - Supplemental oxygen by nasal cannula. ABSENT: rales, wheezes Cardiovascular exam: PRESENT: RRR. ABSENT: diastolic murmur, rubs, systolic murmur Pulses: PRESENT: +1 pedal pulses bilateral Vascular exam: PRESENT: pallor Rectal exam: PRESENT: deferred Gentrourinary exam: PRESENT: indwelling catheter Extremities exam: ABSENT: calf tenderness, clubbing, pedal edema Neurological exam: PRESENT: other - Obtunded Skin exam: PRESENT: dry, intact, warm. ABSENT: cyanosis, rash Results Laboratory Results: 06/28/19 06:40 06/28/19 06:40 06/14/19 06/28/19 13:45 06:40 Troponin I 0.090 NT-Pro-B Natriuret Pep 691 H 1770 H Impressions: Chest/Abdomen CTA 06/14/19 19:39 IMPRESSION: 1. No evidence for pulmonary embolus. Mildly enlarged 32 mm main pulmonary artery. 2. Calcifications aortic and mitral annulus. Cardiomegaly mainly right and left atria. 3. Significant right pleural effusion. May be related to cardiac or to liver disease. Other causes not excluded. Associated with collapse of the right lower lobe. Minimal left pleural effusion. Nonspecific mild edema in the aerated lungs. 4. IVC and hepatic vein dilatation. Fatty liver. Possible passive congestion of the liver. 5. Atherosclerotic disease includes coronary arteries abdominal aorta and its branches. 6. Gallstones without acute biliary abnormality. Abdomen Ultrasound 06/17/19 00:00 IMPRESSION: Technical limitations. Findings consistent with acute cholecystitis. Main portal vein flow pattern consistent with portal hypertension. Thoracentesis Ultrasound 06/17/19 00:00 IMPRESSION: SUCCESSFUL THORACENTESIS USING ULTRASOUND GUIDANCE. Abdomen CT 06/18/19 00:00 IMPRESSION: Limited exam secondary to patient motion artifact. 1. Cholelithiasis without gallbladder dilation or definite wall thickening as seen on prior ultrasound. Nonspecific small volume perihepatic and pericholecystic fluid. Findings nonspecific for acute cholecystitis. HIDA scan could be considered for definitive characterization. 2. Small bilateral effusions, right greater left, with associated basilar atelectasis. 3. Indeterminate exophytic 17 mm left renal lesions. Nonemergent Follow-up ultrasound or multiphase CT could be considered for more definitive characterization. 4. Cardiomegaly with extensive coronary atherosclerosis. Guidance Fluoroscopy 06/21/19 00:00 IMPRESSION: SUCCESSFUL PLACEMENT OF A 5 FR DUAL LUMEN 34 CM PICC IN THE RIGHT BASILIC VEIN. Interventional Vascular Procedure 06/21/19 00:00 IMPRESSION: SUCCESSFUL PLACEMENT OF A 5 FR DUAL LUMEN 34 CM PICC IN THE RIGHT B ASILIC VEIN. PICC Line Insertion 06/21/19 00:00 IMPRESSION: SUCCESSFUL PLACEMENT OF A 5 FR DUAL LUMEN 34 CM PICC IN THE RIGHT BASILIC VEIN. Chest X-Ray 06/28/19 00:00 IMPRESSION: Cardiomegaly. Cannot exclude mild pulmonary edema. Right pleural effusion. Airspace disease in the left lower lobe, pneumonia versus atelectasis. Head CT 06/28/19 00:00 IMPRESSION: NO ACUTE INTRACRANIAL FINDINGS. EVIDENCE OF ACUTE STROKE: NO. Assessment and Plan - Diagnosis (1) Pneumonia Qualifiers: Pneumonia type: due to unspecified organism Laterality: left Lung location: lower lobe of lung Qualified Code(s): J18.9 - Pneumonia, unspecified organism Is this a current diagnosis for this admission?: Yes Plan: Aspiration pneumonia. Patient was admitted to the medical floor on continuous cardiac telemetry. Blood cultures are negative Sputum cultures are pending; not yet obtained. Chest x-ray shows worsening bilateral basilar and left perihilar infiltrate concerning for pneumonia. Repeat chest x-ray (06/28/2019) Shows right pleural effusion with airspace disease to the left lower lobe. On personal review, appears worsened from previous. He is supported with supplemental oxygen Received full course of IV vancomycin and cefepime. Nursing witnessed likely aspiration event on Friday; has had coarse lung sounds, desaturation events, and decreased mental status since. Continue scheduled and as needed nebulizer treatments. Mucinex twice daily Robitussin as needed Encouraged pulmonary toilet. Chest physiotherapy. (2) UTI (urinary tract infection) Qualifiers: Urinary tract infection type: catheter-associated UTI Indwelling urinary catheter type: indwelling urethral catheter Encounter type: subsequent encounter Qualified Code(s): T83.511D - Infection and inflammatory reaction due to indwelling urethral catheter, subsequent encounter; N39.0 - Urinary tract infection, site not specified Is this a current diagnosis for this admission?: Yes Plan: Possible contaminant from indwelling Castle; have replaced Castle. Blood cultures negative at 48 hours. Urine culture shows Pseudomonas and Enterococcus Received full 10-day course of IV vancomycin and cefepime. (3) COPD exacerbation Is this a current diagnosis for this admission?: Yes Plan: Have tapered off prednisone. (4) Anemia Qualifiers: Anemia type: unspecified type Qualified Code(s): D64.9 - Anemia, un specified Is this a current diagnosis for this admission?: Yes Plan: Anemia panel is unremarkable. No evidence of bleeding. Continue on multivitamin. Monitor CBCs. (5) Diabetes Qualifiers: Diabetes mellitus type: type 2 Is this a current diagnosis for this admission?: Yes Plan: A1c 6.6%. Diet controlled. Patient is placed on a consistent carb diet. Accu-Cheks before meals and at bedtime with sliding scale insulin. Registered dietitian telehealth nurse educator consulted. (6) Sinusitis Qualifiers: Sinusitis location: frontal Chronicity: subacute Qualified Code(s): J01.10 - Acute frontal sinusitis, unspecified Is this a current diagnosis for this admission?: Yes Plan: Flonase (7) Thrombocytopenia Is this a current diagnosis for this admission?: Yes Plan: Improved. Unclear chronicity, follow-up CBC DC Arixtra as he was aso ordered heparin (8) Pleural effusion Is this a current diagnosis for this admission?: Yes Plan: Recurrent. CTA noted significant right-sided pleural effusion with associated partial right lung collapse. Likely multifactorial secondary to underlying liver disease and CHF. No obvious pneumonia, proBNP is 600, LFTs were normal. Now s/p thoracentesis w/ 1L fluid removed. Pleural effusion cell counts suggest transudative. Cytology is negative. Repeat CXR shows worsening effusion. Continue furosemide 40 mg daily and Spironolactone 100 mg daily. RUQ U/S suggested cholelithiasis with acute cholecystitis. Also notable for po rtal hypertension. Follow-up CT with contrast of the abdomen suggested cholelithiasis with no overt cholecystitis. Echocardiograph shows LVEF 50% with mild to moderate diastolic dysfunction. (9) Cholelithiasis Qualifiers: Cholelithiasis location: gallbladder Cholecystitis presence: without cholecystitis Biliary obstruction: without biliary obstruction Qualified Code(s): K80.20 - Calculus of gallbladder without cholecystitis without obstruction Is this a current diagnosis for this admission?: Yes Plan: RUQ U/S suggested cholelithiasis with acute cholecystitis. Follow-up CT with contrast of the abdomen suggested cholelithiasis with no overt cholecystitis. Patient is afebrile, with normal WBCs, and asymptomatic at this time. no surgical interventions recommended at this time. (10) CHF (congestive heart failure) Qualifiers: Heart failure type: diastolic Heart failure chronicity: chronic Qualified Code(s): I50.32 - Chronic diastolic (congestive) heart failure Is this a current diagnosis for this admission?: Yes Plan: Echocardiograph shows LVEF 50% with mild to moderate diastolic dysfunction. Not in acute exacerbation at this time. Continue cardiac diet. Fluid restricted to 2 L daily. Furosemide and spironolactone. Low-dose metoprolol twice daily (11) Aspiration into respiratory tract Qualifiers: Encounter type: subsequent encounter Qualified Code(s): T17.908D - Unspecified foreign body in respiratory tract, part unspecified causing other injury, subsequent encounter Is this a current diagnosis for this admission?: Yes Plan: Speech therapy recommends continued n.p.o. status and discussion regarding alternate nutrition. On discussion had with family members; see separate ACP note. Management of pneumonia as above. HOB elevated >30 degrees NPO Aspiration precautions. - Time Time Spent with patient: 25-34 minutes Medications reviewed and adjusted accordingly: Yes Anticipated discharge: Hospice Within: within 24 hours
[2019-06-29] MEDS: SIMVASTATIN 10 MG TABLET PO SCH (22:24)
[2019-06-30] MEDS: IPRATROPIUM/ALBUTEROL 0.5-2.5 MG/3 ML AMPUL NEB SCH ×2 (00:33→08:00)
[2019-06-30 05:35] LABS: HEMATOCRIT 34.7 % (37.9-51.0); HEMOGLOBIN 11.3 g/dL (13.5-17.0); MEAN CORPUSCULAR HEMOGLOBIN 28.2 pg (27.0-33.4); MEAN CORPUSCULAR HGB CONC 32.7 g/dL (32.0-36.0); MEAN CORPUSCULAR VOLUME 86 fl (80-97); PLATELET COUNT 106 10^3/uL (150-450); RED BLOOD COUNT 4.02 10^6/uL (4.35-5.55); RED CELL DISTRIBUTION WIDTH 18.2 % (11.5-14.0); WHITE BLOOD COUNT 9.4 10^3/uL (4.0-10.5)
[2019-06-30 05:50] LABS: BLOOD UREA NITROGEN 19 mg/dL (7-20); CHLORIDE 107 mmol/L (98-107); GLUCOSE 79 mg/dL (75-110); POTASSIUM 3.4 mmol/L (3.6-5.0)
[2019-06-30 05:56] LABS: CARBON DIOXIDE 32 mmol/L (22-30)
[2019-06-30 05:57] LABS: ANION GAP 4 (5-19)
[2019-06-30] MEDS: ACETAMINOPHEN 325 MG TABLET PO SCH ×3 (06:34→12:53)
[2019-06-30] MEDS: INSULIN REG, HUMAN 100 UNIT/ML 3 ML VIAL (PYX) SUBCUT SCH ×2 (08:00→11:48)
[2019-06-30] MEDS: DOCUSATE SODIUM 100 MG CAPSULE PO SCH (10:18)
[2019-06-30] MEDS: SPIRONOLACTONE 25 MG TABLET PO SCH (10:18)
[2019-06-30] MEDS: MULTIVITAMIN TABLET PO SCH (10:19)
[2019-06-30] MEDS: GUAIFENESIN 600 MG TABLET.SA PO SCH (10:19)
[2019-06-30] MEDS: MAGNESIUM HYDROXIDE SUSP 30 ML UDCUP PO SCH (10:19)
[2019-06-30] MEDS: FLUTICASONE NASAL SPRAY 50 MCG/SPRY 120 SPRAY/16 GM NASL SCH (10:19)
[2019-06-30] MEDS: FOLIC ACID 1 MG TABLET PO SCH (10:19)
[2019-06-30] MEDS: METOPROLOL SUCCINATE 25 MG TAB.SR.24H PO SCH (10:19)
[2019-06-30] MEDS: NORMAL SALINE 10 ML SDV (SCHEDULED) IV SCH (10:36)
[2019-06-30] MEDS: FUROSEMIDE INJ/PF 40 MG/4 ML SDV IV SCH (10:36)
[2019-06-30 13:27] VITALS: BP 114/44
--- NOTE | 2019-06-30 18:37 | PDOC TRANSFER SUMMARY ---
Impression - Admit/DC Date/PCP Admission Date/Primary Care Provider: 06/14/19 21:50 DEX PACK MD Discharge Date: 06/30/19 - Discharge Diagnosis (1) Pneumonia Is this a current diagnosis for this admission?: Yes (2) UTI (urinary tract infection) Is this a current diagnosis for this admission?: Yes (3) COPD exacerbation Is this a current diagnosis for this admission?: Yes (4) Anemia Is this a current diagnosis for this admission?: Yes (5) Diabetes Is this a current diagnosis for this admission?: Yes (6) Sinusitis Is this a current diagnosis for this admission?: Yes (7) Thrombocytopenia Is this a current diagnosis for this admission?: Yes (8) Pleural effusion Is this a current diagnosis for this admission?: Yes (9) Cholelithiasis Is this a current diagnosis for this admission?: Yes (10) CHF (congestive heart failure) Is this a current diagnosis for this admission?: Yes (11) Aspiration into respiratory tract Is this a current diagnosis for this admission?: Yes - Additional Information Resuscitation Status: Do Not Resuscitate Discharge Diet: As Tolerated Discharge Activity: Activity As Tolerated Referrals: DEX PACK MD [Primary Care Provider] - Follow up as needed Prescriptions: Metoprolol Succinate [Toprol Xl 25 mg Tab.sr] 12.5 mg PO DAILY #14 tab.sr.24h Home Medications: Acetaminophen [Tylenol 325 mg Tablet] 325 mg PO Q6 tablet 06/30/19 Furosemide [Lasix 40 mg Tablet] 40 mg PO DAILY #0 06/30/19 Guaifenesin [Robitussin Syrup 200 mg/10 ml Ud Cup] 200 mg PO Q4HP PRN udc 06/30/19 Metoprolol Succinate [Toprol Xl 25 mg Tab.sr] 12.5 mg PO DAILY #14 tab.sr.24h 06/30/19 Spironolactone [Aldactone 25 mg Tablet] 100 mg PO DAILY #0 06/30/19 History of Present Illiness History of Present Illness: Per H&P by Dr. Izquierdo: EMMA HIGGINBOTHAM is a 89 year old male with a past medical history of congestive heart failure with an ejection fraction, paroxysmal atrial fibrillation, COPD, type 2 diabetes, status post coronary artery bypass graft and chronic indwelling Castle catheter. He presents with 7 days of rhinorrhea, nonproductive cough developing shortness of breath prompting evaluation in the emergency room. He is found to have a left-sided infiltrate with atelectasis. He receives breathing treatments, empiric antibiotics and referred to the hospitalist for admission. Patient denies recent antibiotics or hospitalization. No recent travel or exposure to known patient with coronavirus. Hospital Course Hospital Course: (1) Pneumonia Aspiration pneumonia; nursing witnessed likely aspiration event on Friday; has had coarse lung sounds, desaturation events, and decreased mental status since. Patient was admitted to the medical floor on continuous cardiac telemetry. Blood cultures are negative Sputum cultures are pending; not yet obtained. Chest x-ray shows worsening bilateral basilar and left perihilar infiltrate concerning for pneumonia. Repeat chest x-ray (06/28/2019) Shows right pleural effusion with airspace disease to the left lower lobe. On personal review, appears worsened from previous. He was supported with supplemental oxygen, scheduled and as needed nebulizer treatments, and chest physiotherapy. Received full course of IV vancomycin and cefepime. (2) UTI (urinary tract infection) Possible contaminant from chronic indwelling Castle; have replaced Castle. Blood cultures negative at 5 days. Urine culture shows Pseudomonas and Enterococcus Received full 10-day course of IV vancomycin and cefepime. (3) COPD exacerbation Received standard care set of supplemental oxygen, nebulizer treatments, steroid therapy, mucinex, and pulmonary toilet. (4) Anemia Anemia panel is unremarkable. No evidence of bleeding. Received multivitamin while admitted. (5) Diabetes A1c 6.6%. Diet controlled. Patient was placed on a consistent carb diet. (6) Sinusitis Received Flonase (7) Thrombocytopenia Improved. Unclear chronicity (8) Pleural effusion Recurrent. CTA noted significant right-sided pleural effusion with associated partial right lung collapse. Likely multifactorial secondary to underlying liver disease and CHF. No obvious pneumonia, proBNP is 600, LFTs were normal. Now s/p thoracentesis w/ 1L fluid removed. Pleural effusion cell counts suggest transudative. Cytology is negative. Repeat CXR shows worsening effusion. Diuretics were adjusted to furosemide 40 mg daily and Spironolactone 100 mg daily. RUQ U/S suggested cholelithiasis with acute cholecystitis. Also notable for portal hypertension. Follow-up CT with contrast of the abdomen suggested cholelithiasis with no overt cholecystitis. Echocardiograph shows LVEF 50% with mild to moderate diastolic dysfunction. (9) Cholelithiasis RUQ U/S suggested cholelithiasis with acute cholecystitis. Follow-up CT with contrast of the abdomen suggested cholelithiasis with no overt cholecystitis. Discussed with surgery; no surgical interventions recommended at this time. (10) CHF (congestive heart failure) Echocardiograph shows LVEF 50% with mild to moderate diastolic dysfunction. Not in acute exacerbation at this time. Fluid restricted to 2 L daily. Furosemide and spironolactone. Low-dose metoprolol twice daily (11) Aspiration into respiratory tract Speech therapy recommends continued n.p.o. status and discussion regarding alternate nutrition. Long discussion had with family members; see separate ACP note. Ultimately decided on DNR/DNI with discharge home with hospice services. Management of pneumonia as above. Physical Exam Vital Signs: Temp Pulse Resp BP Pulse Ox 98.5 F 65 28 H 114/44 L 99 06/30/19 11:37 06/30/19 11:37 06/30/19 11:37 06/30/19 11:37 06/30/19 11:37 Intake & Output 06/29/19 06/30/19 07/01/19 06:59 06:59 06:59 Intake Total 1000 0 Output Total 2375 825 700 Balance -1375 -825 -700 Weight 79 kg 80.9 kg General appearance: PRESENT: mild distress, well-developed, well-nourished Head exam: PRESENT: atraumatic, normocephalic Eye exam: PRESENT: conjunctiva pale, EOMI, PERRLA. ABSENT: scleral icterus Mouth exam: PRESENT: dry mucosa, tongue midline Respiratory exam: PRESENT: crackles, decreased breath sounds - diminished Right lower field, rhonchi, symmetrical, unlabored, other - Supplemental oxygen by nasal cannula. ABSENT: rales, wheezes Cardiovascular exam: PRESENT: RRR. ABSENT: diastolic murmur, rubs, systolic murmur Gentrourinary exam: PRESENT: indwelling catheter Neurological exam: PRESENT: oriented to person, other - Arousable; responsive to his son.. ABSENT: oriented to place, oriented to time, oriented to situation Psychiatric exam: PRESENT: appropriate affect, normal mood. ABSENT: homicidal ideation, suicidal ideation Skin exam: PRESENT: dry, intact, warm. ABSENT: cyanosis, rash Results Laboratory Results: WBC 9.4 10^3/uL (4.0-10.5) 06/30/19 05:15 RBC 4.02 10^6/uL (4.35-5.55) L 06/30/19 05:15 Hgb 11.3 g/dL (13.5-17.0) L 06/30/19 05:15 Hct 34.7 % (37.9-51.0) L 06/30/19 05:15 MCV 86 fl (80-97) 06/30/19 05:15 MCH 28.2 pg (27.0-33.4) 06/30/19 05:15 MCHC 32.7 g/dL (32.0-36.0) 06/30/19 05:15 RDW 18.2 % (11.5-14.0) H 06/30/19 05:15 Plt Count 106 10^3/uL (150-450) L 06/30/19 05:15 Lymph % (Auto) 7.6 % (13-45) L 06/28/19 06:40 Holt % (Auto) 12.5 % (3-13) 06/28/19 06:40 Eos % (Auto) 1.0 % (0-6) 06/28/19 06:40 Baso % (Auto) 0.3 % (0-2) 06/28/19 06:40 Reticulocyte # 0.062 10^6/uL (0.028-0.122) 06/14/19 13:45 Absolute Neuts (auto) 6.2 10^3/uL (1.7-8.2) 06/28/19 06:40 Absolute Lymphs (auto) 0.6 10^3/uL (0.5-4.7) 06/28/19 06:40 Absolute Monos (auto) 1.0 10^3/uL (0.1-1.4) 06/28/19 06:40 Absolute Eos (auto) 0.1 10^3/uL (0.0-0.6) 06/28/19 06:40 Absolute Basos (auto) 0.0 10^3/uL (0.0-0.2) 06/28/19 06:40 Total Counted 100 06/22/19 06:17 Seg Neutrophils % 78.6 % (42-78) H 06/28/19 06:40 Seg Neuts % (Manual) 90 % (42-78) H 06/22/19 06:17 Band Neutrophils % 1 % (3-5) L 06/22/19 06:17 Lymphocytes % (Manual) 5 % (13-45) L 06/22/19 06:17 Monocytes % (Manual) 4 % (3-13) 06/22/19 06:17 Eosinophils % (Manual) 0 % (0-6) 06/22/19 06:17 Basophils % (Manual) 0 % (0-2) 06/22/19 06:17 Abs Neuts (Manual) 7.4 10^3/uL (1.7-8.2) 06/22/19 06:17 Abs Lymphs (Manual) 0.4 10^3/uL (0.5-4.7) L 06/22/19 06:17 Abs Monocytes (Manual) 0.3 10^3/uL (0.1-1.4) 06/22/19 06:17 Absolute Eos (Manual) 0.0 10^3/uL (0.0-0.6) 06/22/19 06:17 Abs Basophils (Manual) 0.0 10^3/uL (0.0-0.2) 06/22/19 06:17 Toxic Granulation SLIGHT 06/15/19 05:55 Toxic Vacuolation PRESENT 06/15/19 05:55 Platelet Comment DECREASED 06/22/19 06:17 Polychromasia SLIGHT 06/22/19 06:17 Basophilic Stippling PRESENT 06/22/19 06:17 Anisocytosis 1+ 06/22/19 06:17 Tear Drop Cells SLIGHT 06/22/19 06:17 Ovalocytes SLIGHT 06/22/19 06:17 Retic Count (auto) 1.69 % (0.66-2.85) 06/14/19 13:45 PT 15.8 SEC (11.4-15.4) H 06/17/19 05:50 INR 1.25 06/17/19 05:50 APTT 42.2 SEC (23.5-35.8) H 06/17/19 05:50 Sodium 143.1 mmol/L (137-145) 06/30/19 05:15 Potassium 3.4 mmol/L (3.6-5.0) L 06/30/19 05:15 Chloride 107 mmol/L (98-107) 06/30/19 05:15 Carbon Dioxide 32 mmol/L (22-30) H 06/30/19 05:15 Anion Gap 4 (5-19) L 06/30/19 05:15 BUN 19 mg/dL (7-20) 06/30/19 05:15 Creatinine 0.55 mg/dL (0.52-1.25) 06/30/19 05:15 Est GFR ( Amer) > 60 (>60) 06/30/19 05:15 Est GFR (MDRD) Non-Af > 60 (>60) 06/30/19 05:15 Glucose 79 mg/dL (75-110) 06/30/19 05:15 POC Glucose 86 mg/dL (70-110) 06/30/19 11:39 Hemoglobin A1c % 6.6 % (4.7-6.0) H 06/16/19 05:08 Lactic Acid 1.1 mmol/L (0.7-2.1) 06/14/19 22:54 Calcium 8.0 mg/dL (8.4-10.2) L 06/30/19 05:15 Iron 58.1 ug/dL (49-181) 06/14/19 13:45 TIBC 420 ug/dL (250-450) 06/14/19 13:45 % Saturation 14 % 06/14/19 13:45 Ferritin 64.80 ng/mL (17.9-464.0) 06/14/19 13:45 Total Bilirubin 0.8 mg/dL (0.2-1.3) 06/22/19 06:17 Direct Bilirubin 0.3 mg/dL (0.0-0.4) 06/22/19 06:17 Neonat Total Bilirubin Not Reportable 06/22/19 06:17 Neonat Direct Bilirubin Not Reportable 06/22/19 06:17 Neonat Indirect Bili Not Reportable 06/22/19 06:17 AST 43 U/L (17-59) 06/22/19 06:17 ALT 20 U/L (<50) 06/22/19 06:17 Alkaline Phosphatase 94 U/L (38-126) 06/22/19 06:17 Troponin I 0.090 ng/mL 06/14/19 13:45 NT-Pro-B Natriuret Pep 1770 pg/mL (<450) H 06/28/19 06:40 Total Protein 6.3 g/dL (6.3-8.2) 06/22/19 06:17 Albumin 2.7 g/dL (3.5-5.0) L 06/22/19 06:17 Vitamin B12 798.0 pg/mL (239-931) 06/14/19 13:45 Folate > 20.00 ng/mL (>2.76) 06/14/19 13:45 Urine Color YELLOW 06/14/19 16:25 Urine Appearance CLEAR 06/14/19 16:25 Urine pH 7.0 (5.0-9.0) 06/14/19 16:25 Ur Specific [place] 1.009 06/14/19 16:25 Urine Protein NEGATIVE mg/dL (NEGATIVE) 06/14/19 16:25 Urine Glucose (UA) NEGATIVE mg/dL (NEGATIVE) 06/14/19 16:25 Urine Ketones NEGATIVE mg/dL (NEGATIVE) 06/14/19 16:25 Urine Blood MODERATE (NEGATIVE) H 06/14/19 16:25 Urine Nitrite (Reflex) POSITIVE (NEGATIVE) H 06/14/19 16:25 Urine Bilirubin NEGATIVE (NEGATIVE) 06/14/19 16:25 Urine Urobilinogen NEGATIVE mg/dL (<2.0) 06/14/19 16:25 Leukocyte Esterase Rfl LARGE (NEGATIVE) H 06/14/19 16:25 Urine RBC (Auto) 8 /HPF 06/14/19 16:25 U Hyaline Cast (Auto) 24 /LPF 06/14/19 16:25 Urine Bacteria (Auto) TRACE /HPF 06/14/19 16:25 Urine WBC (Reflex) 41 /HPF 06/14/19 16:25 Urine WBC Clumps FEW /HPF 06/14/19 16:25 Squamous Epi Cells Auto <1 /HPF 06/14/19 16:25 Amorphous Sediment Auto TRACE /HPF 06/14/19 16:25 Urine Mucus (Auto) RARE /LPF 06/14/19 16:25 Urine Ascorbic Acid NEGATIVE (NEGATIVE) 06/14/19 16:25 Fluid Type PLEURAL 06/17/19 10:10 Fluid Source LUNG 06/17/19 10:10 Fluid Color YELLOW 06/17/19 10:10 Fluid Appearance CLEAR 06/17/19 10:10 Fluid Viscosity LIQUID 06/17/19 10:10 Fluid WBC 304 /uL 06/17/19 10:10 Fluid RBC 347 /uL 06/17/19 10:10 Fluid Seg Neutrophils 7 % 06/17/19 10:10 Fluid Lymphocytes 74 % 06/17/19 10:10 Fluid Monocytes 19 % 06/17/19 10:10 Fluid Eosinophils 0 % 06/17/19 10:10 Fluid Basophils 0 % 06/17/19 10:10 Time Trough Drawn 0530 06/26/19 05:30 Vancomycin Trough 17.9 ug/mL (5.0-20.0) 06/26/19 05:30 06/14/19 06/28/19 13:45 06:40 Troponin I 0.090 NT-Pro-B Natriuret Pep 691 H 1770 H Impressions: Chest X-Ray 06/14/19 15:28 IMPRESSION: Mild left basilar effusion with associated consolidation, possibly atelectasis or infection. Enlarged cardiac silhouette without overt edema. Chest/Abdomen CTA 06/14/19 19:39 IMPRESSION: 1. No evidence for pulmonary embolus. Mildly enlarged 32 mm main pulmonary artery. 2. Calcifications aortic and mitral annulus. Cardiomegaly mainly right and left atria. 3. Significant right pleural effusion. May be related to cardiac or to liver disease. Other causes not excluded. Associated with collapse of the right lower lobe. Minimal left pleural effusion. Nonspecific mild edema in the aerated lungs. 4. IVC and hepatic vein dilatation. Fatty liver. Possible passive congestion of the liver. 5. Atherosclerotic disease includes coronary arteries abdominal aorta and its branches. 6. Gallstones without acute biliary abnormality. Abdomen Ultrasound 06/17/19 00:00 IMPRESSION: Technical limitations. Findings consistent with acute cholecystitis. Main portal vein flow pattern consistent with portal hypertension. Thoracentesis Ultrasound 06/17/19 00:00 IMPRESSION: SUCCESSFUL THORACENTESIS USING ULTRASOUND GUIDANCE. Chest X-Ray 06/17/19 10:20 IMPRESSION: No pneumothorax status post right thoracentesis. Chest X-Ray 06/17/19 12:20 IMPRESSION: No pneumothorax. Abdomen CT 06/18/19 00:00 IMPRESSION: Limited exam secondary to patient motion artifact. 1. Cholelithiasis without gallbladder dilation or definite wall thickening as seen on prior ultrasound. Nonspecific small volume perihepatic and pericholecystic fluid. Findings nonspecific for acute cholecystitis. HIDA scan could be considered for definitive characterization. 2. Small bilateral effusions, right greater left, with associated basilar atelectasis. 3. Indeterminate exophytic 17 mm left renal lesions. Nonemergent Follow-up ultrasound or multiphase CT could be considered for more definitive characte rization. 4. Cardiomegaly with extensive coronary atherosclerosis. Guidance Fluoroscopy 06/21/19 00:00 IMPRESSION: SUCCESSFUL PLACEMENT OF A 5 FR DUAL LUMEN 34 CM PICC IN THE RIGHT BASILIC VEIN. Interventional Vascular Procedure 06/21/19 00:00 IMPRESSION: SUCCESSFUL PLACEMENT OF A 5 FR DUAL LUMEN 34 CM PICC IN THE RIGHT BASILIC VEIN. PICC Line Insertion 06/21/19 00:00 IMPRESSION: SUCCESSFUL PLACEMENT OF A 5 FR DUAL LUMEN 34 CM PICC IN THE RIGHT BASILIC VEIN. Chest X-Ray 06/21/19 08:00 IMPRESSION: Increasing bilateral basilar and left perihilar infiltrate. Increasing right pleural effusion. Findings most likely represent pneumonia. Chest X-Ray 06/28/19 00:00 IMPRESSION: Cardiomegaly. Cannot exclude mild pulmonary edema. Right pleural effusion. Airspace disease in the left lower lobe, pneumonia versus atelectasis. Head CT 06/28/19 00:00 IMPRESSION: NO ACUTE INTRACRANIAL FINDINGS. EVIDENCE OF ACUTE STROKE: NO. Plan Plan of Treatment: Patient is discharged home into the care of family members with home hospice services through [facility]. Time Spent: Greater than 30 Minutes Stroke Is this a Stroke Patient?: No Acute Heart Failure - Is this a Heart Failure Patient?: Yes Documentation of LVEF assessment?: Yes LVEF < 40%?: No- if no continue to question #3 3. Anticoagulant therapy for permanect/persistent/paraoxysmal Afib or Aflutter: N/A Follow-up Appointment scheduled within 7 days?: No, document reason
== END 2019-06-30 13:53 | disposition hospice, home (50) | DRG 178 ==
LOC: ER 15:13 → EH 21:50 → 5 06-15 01:38 → 4S 06-21 05:32
PROVIDERS: ADMIT Internal Medicine; ATTEND Registered Nurse
PROC: 0W993ZX Drainage of Right Pleural Cavity, Percutaneous Approach, Diagnostic (ICD-10-PCS; principal; 2019-06-17)
PROC: 02HV33Z Insertion of Infusion Device into Superior Vena Cava, Percutaneous Approach (ICD-10-PCS; 2019-06-21)
DX: J69.0 Pneumonitis due to inhalation of food and vomit (principal); N39.0 Urinary tract infection, site not specified; K76.6 Portal hypertension; T83.511A Infection and inflammatory reaction due to indwelling urethral catheter, initial encounter; J90 Pleural effusion, not elsewhere classified; E87.1 Hypo-osmolality and hyponatremia; I50.32 Chronic diastolic (congestive) heart failure; J98.11 Atelectasis; J44.1 Chronic obstructive pulmonary disease with (acute) exacerbation; D69.6 Thrombocytopenia, unspecified; D63.8 Anemia in other chronic diseases classified elsewhere; I11.0 Hypertensive heart disease with heart failure; E11.9 Type 2 diabetes mellitus without complications; K80.20 Calculus of gallbladder without cholecystitis without obstruction; Z66 Do not resuscitate; I48.0 Paroxysmal atrial fibrillation; B95.2 Enterococcus as the cause of diseases classified elsewhere; B96.5 Pseudomonas (aeruginosa) (mallei) (pseudomallei) as the cause of diseases classified elsewhere; J01.10 Acute frontal sinusitis, unspecified; E78.5 Hyperlipidemia, unspecified; H91.90 Unspecified hearing loss, unspecified ear; E66.3 Overweight; E87.6 Hypokalemia; Z95.1 Presence of aortocoronary bypass graft; I25.2 Old myocardial infarction; Z82.49 Family history of ischemic heart disease and other diseases of the circulatory system; Z88.6 Allergy status to analgesic agent; Z88.0 Allergy status to penicillin; Z68.24 Body mass index [BMI] 24.0-24.9, adult
CPT/HCPCS: 32555; 36415; 36569; 70450; 71045; 71046; 71275; 74160; 76705; 76937; 77001; 80048; 80053; 80202; 81001; 82565; 82607; 82728; 82746; 82962; 83036; 83540; 83550; 83605; 83880; 84484; 85025; 85027; 85045; 85610; 85730; 87040; 87070; 87075; 87086; 87088; 87186; 87205; 88305; 88341; 88342; 89050; 93306; 94640; 94667; 94668; 94799; 96365; 96366; 96367; 99291; 99292; C1769; J0692; J1642; J1652; J1940; J1956; J2060; J2920; J3370; J3486; J3490; J7030; J7060; J7512; J7620